=== PATIENT | male | born 1985 | race Caucasian/White ===

== ENCOUNTER → 2017-01-31 | Outpatient (REF) | payer SELFPAY ==
[~2017-01-31] MED LIST: AMOX500C PO; FLUO20CA8 PO; TRAZ100T4 PO; TRAZ50TA4 PO; VIST50CA PO; [UNRECOGNIZED DRUG - CODE] PO
== END ==
LOC: M LAB REF 14:36
PROVIDERS: ATTEND Psychiatry & Neurology Psychiatry
DX: Z79.899 Other long term (current) drug therapy (principal)

== ENCOUNTER → 2017-06-20 | Outpatient (REF) | payer OTHER ==
[~2017-06-20] MED LIST changes: +TRAZ-136 PO; -TRAZ100T4 PO; +TRAZ50TA11 PO; -TRAZ50TA4 PO
== END ==
LOC: M LAB REF 10:38
PROVIDERS: ATTEND Psychiatry & Neurology Psychiatry
DX: Z51.81 Encounter for therapeutic drug level monitoring (principal)

== ENCOUNTER → 2017-09-19 | Outpatient (REF) | payer OTHER | LOC: M LAB REF 10:53 | PROVIDERS: ATTEND Psychiatry & Neurology Psychiatry | DX: Z51.81 Encounter for therapeutic drug level monitoring (principal); Z79.899 Other long term (current) drug therapy ==

== ENCOUNTER 2017-12-07 14:32 | Emergency (ER) | payer OTHER | END 2017-12-07 15:21 | disposition home or self-care (01) | LOC: M ED 14:32 | DX: K02.9 Dental caries, unspecified (principal); R68.84 Jaw pain; R22.0 Localized swelling, mass and lump, head; Z79.899 Other long term (current) drug therapy | CPT/HCPCS: 99283 ==

== ENCOUNTER 2018-01-17 12:17 | Emergency (ER) | payer OTHER | END 2018-01-17 14:20 | disposition home or self-care (01) | LOC: M ED 12:17 | DX: K02.9 Dental caries, unspecified (principal); K04.7 Periapical abscess without sinus; F17.200 Nicotine dependence, unspecified, uncomplicated; Z79.899 Other long term (current) drug therapy | CPT/HCPCS: 99283 ==

== ENCOUNTER 2018-03-11 06:38 | Emergency (ER) | payer OTHER ==
[2018-03-11] MEDS: IBUPROFEN 800 MG TAB PO (07:15)
[2018-03-11] MEDS: AMOXICILLIN 500 MG CAP PO (07:21)
== END 2018-03-11 07:23 | disposition home or self-care (01) ==
LOC: M ED 06:38
DX: K02.9 Dental caries, unspecified (principal); R68.84 Jaw pain; K13.79 Other lesions of oral mucosa; G43.909 Migraine, unspecified, not intractable, without status migrainosus; Z72.0 Tobacco use; Z79.899 Other long term (current) drug therapy
CPT/HCPCS: 99282

== ENCOUNTER 2018-03-21 06:58 | Emergency (ER) | payer OTHER | END 2018-03-21 07:55 | disposition home or self-care (01) | LOC: M ED 06:58 | DX: K02.9 Dental caries, unspecified (principal); S02.5XXA Fracture of tooth (traumatic), initial encounter for closed fracture; X58.XXXA Exposure to other specified factors, initial encounter; Y92.89 Other specified places as the place of occurrence of the external cause; Z79.899 Other long term (current) drug therapy | CPT/HCPCS: 99282 ==

== ENCOUNTER → 2018-08-14 | Outpatient (CLI) | payer OTHER ==
[2018-08-14 15:03] LABS: HEMATOCRIT 43.9 % (42.0-52.0); HEMOGLOBIN 14.7 g/dl (13.5-17.5); MEAN CORPUSCULAR HEMOGLOBIN 30.8 pg (27.0-33.0); MEAN CORPUSCULAR HGB CONC 33.5 g/dl (32.0-36.5); PLATELET COUNT, AUTOMATED 232 10^3/uL (150-450); RED BLOOD COUNT 4.77 10^6/uL (4.30-6.10); RED CELL DISTRIBUTION WIDTH 13.6 % (11.5-14.5); WHITE BLOOD COUNT 13.9 10^3/uL (4.0-10.0)
[2018-08-14 15:27] LABS: ALBUMIN 3.4 GM/DL (3.2-5.2); ALKALINE PHOSPHATASE 113 U/L (45-117); ALT/SGPT 84 U/L (12-78); ANION GAP 9 MEQ/L (8-16); AST/SGOT 46 U/L (7-37); BILIRUBIN,TOTAL 0.5 MG/DL (0.2-1.0); BLOOD UREA NITROGEN 12 MG/DL (7-18); CALCIUM LEVEL 8.9 MG/DL (8.5-10.1); CARBON DIOXIDE LEVEL 28 MEQ/L (21-32); CHLORIDE LEVEL 102 MEQ/L (98-107); CREATININE FOR GFR 0.83 MG/DL (0.70-1.30); GLOMERULAR FILTRATION RATE > 60.0 (>60); GLUCOSE, FASTING 119 MG/DL (70-100); POTASSIUM SERUM 4.3 MEQ/L (3.5-5.1); SODIUM LEVEL 139 MEQ/L (136-145); TOTAL PROTEIN 6.8 GM/DL (6.4-8.2)
[2018-08-14 17:15] LABS: CHLAMYDIA DNA AMPLIFICATION NEGATIVE (NEGATIVE); GC DNA AMPLIFICATION NEGATIVE (NEGATIVE)
[2018-08-15 10:31] LABS: HEPATITIS B SURFACE ANTIGEN NEGATIVE (NEGATIVE)
[2018-08-15 10:59] LABS: HIV 1&2 SCREEN CENTAUR NEGATIVE (NEGATIVE)
[2018-08-15 11:03] LABS: HEPATITIS C VIRUS ABY INDEX > 11.0 INDEX (<0.8)
[2018-08-20 14:16] LABS: HCV RNA NAA QUALITATIVE Positive (Negative)
== END ==
LOC: M LAB 14:24
DX: F11.20 Opioid dependence, uncomplicated (principal)
CPT/HCPCS: 93005

== ENCOUNTER 2019-03-28 08:50 | Emergency (ER) | payer OTHER ==
[~2019-03-28] VITALS: Ht 175.3 cm; Wt 84.0 kg
[~2019-03-28 08:50] MED LIST changes: +ALEV220C2 PO; +ALPR1TAB3; +AUGM875T28 PO; +CLEO300C2 PO; +DEPA500T2 PO; +DIVA500T94; +HYDR-3715 PO; +IBUP-1022 PO; +IBUP80TA PO; +METH-1022; +PENI500T PO; -TRAZ-136 PO; +TRAZ-163 PO; +TRAZ-252 PO; -TRAZ50TA11 PO; +ULTR50TA8 PO
[2019-03-28] MEDS ORDERED: KETOROLAC 60 MG/2 ML VIAL (J1885) IM ONE (09:15)
--- NOTE | 2019-03-28 09:59 | REP ---
Clinical: Right lateral foot pain Technique: AP, lateral, bilateral oblique views right foot . Findings: The osseous structures and joint spaces are intact and normal. There is no evidence for acute fracture or dislocation. Surrounding soft tissues are unremarkable. No subcutaneous emphysema or radiodense foreign body. Impression: Normal right foot series . No acute fracture or dislocation. Electronically Signed by Prince Do MD 03/28/2019 09:50 A
[2019-03-28] MEDS ORDERED: KETO10TAB PO (10:25)
[2019-03-28 10:34] VITALS: BP 129/70
== END 2019-03-28 10:35 | disposition home or self-care (01) ==
LOC: M ED 08:50
DX: S96.911A Strain of unspecified muscle and tendon at ankle and foot level, right foot, initial encounter (principal); X58.XXXA Exposure to other specified factors, initial encounter; Y92.89 Other specified places as the place of occurrence of the external cause; E78.5 Hyperlipidemia, unspecified; G43.909 Migraine, unspecified, not intractable, without status migrainosus; F43.10 Post-traumatic stress disorder, unspecified; F17.210 Nicotine dependence, cigarettes, uncomplicated
CPT/HCPCS: 73630; 96372; 99284; J1885

== ENCOUNTER 2019-06-03 21:31 | Inpatient (IN) | payer OTHER ==
[~2019-06-03] VITALS: Ht 172.7 cm; Wt 84.3 kg
[~2019-06-03 21:31] MED LIST changes: +KETO10TAB PO
[2019-06-03 22:10] LABS: HEMATOCRIT 40.1 % (42.0-52.0); HEMOGLOBIN 13.9 g/dl (13.5-17.5); MEAN CORPUSCULAR HEMOGLOBIN 31.3 pg (27.0-33.0); MEAN CORPUSCULAR HGB CONC 34.7 g/dl (32.0-36.5); MEAN CORPUSCULAR VOLUME 90.3 fl (80.0-96.0); PLATELET COUNT, AUTOMATED 199 10^3/uL (150-450); RED BLOOD COUNT 4.44 10^6/uL (4.30-6.10); WHITE BLOOD COUNT 15.7 10^3/uL (4.0-10.0)
[2019-06-03 23:03] LABS: BASO % 0.2 % (0.0-1.0); EOS # 0.1 10^3/uL (0.0-0.5); EOS % 0.4 % (0.0-3.0); LYMPH # 2.6 10^3/uL (1.5-5.0); LYMPH % 16.6 % (24.0-44.0); MONO % 13.1 % (0.0-5.0); NEUTROPHILS % 69.4 % (36.0-66.0)
[2019-06-03 23:04] LABS: ACETAMINOPHEN LEVEL < 2.0 UG/ML (10.0-30.0); ALBUMIN 3.7 GM/DL (3.2-5.2); ALT/SGPT 94 U/L (12-78); BILIRUBIN,DIRECT 0.4 MG/DL (0.0-0.2); BILIRUBIN,TOTAL 1.1 MG/DL (0.2-1.0); BLOOD UREA NITROGEN 12 MG/DL (7-18); CARBON DIOXIDE LEVEL 28 MEQ/L (21-32); CHLORIDE LEVEL 101 MEQ/L (98-107); ETHYL ALCOHOL (ETHANOL) < 0.003 % (0.000-0.010); GLOMERULAR FILTRATION RATE > 60.0 (>60); GLUCOSE, FASTING 94 MG/DL (70-100); POTASSIUM SERUM 3.7 MEQ/L (3.5-5.1); SALICYLATE LEVEL < 1.7 MG/DL (5.0-30.0); SODIUM LEVEL 137 MEQ/L (136-145); THYROID STIMULATING HORMONE 0.057 uIU/ML (0.358-3.740); TOTAL PROTEIN 6.5 GM/DL (6.4-8.2)
[2019-06-03 23:15] LABS: MONO # 2.1 10^3/uL (0.0-0.8)
[2019-06-03] MEDS ORDERED: NS 1,000 ML IV ONE (23:15)
--- NOTE | 2019-06-03 23:38 | REPVR ---
EXAM: CT Head Without Contrast EXAM DATE/TIME: 06/03/2019 11:07 PM CLINICAL HISTORY: 34 years old, male; Altered mental status/memory loss; Additional info: AMS TECHNIQUE: Imaging protocol: Computed tomography of the head without contrast. Radiation optimization: All CT scans at this facility use at least one of these dose optimization techniques: automated exposure control; mA and/or kV adjustment per patient size (includes targeted exams where dose is matched to clinical indication); or iterative reconstruction. COMPARISON: No relevant prior studies available. FINDINGS: Limitations: Examination is limited by motion artifact. Brain: Complete effacement of sulci along the mid to inferior portions of the brain as well as loss of gibbons-white matter differentiation. This is not seen along the vertex frontal and parietal lobes. No intracranial hemorrhage or extra-axial fluid collection. No midline shift. No ventriculomegaly. Bones/joints: No acute osseus lesion or fracture. Sinuses: Unremarkable as visualized. Mastoid air cells: Unremarkable. Soft tissues: Unremarkable. IMPRESSION: Complete effacement of sulci along mid to inferior portions of the brain as well as loss of gibbons-white matter differentiation. This is not seen along the vertex frontal and parietal lobes. Although findings could be related to marked motion artifact, other pathologies such as anoxic ischemia and cerebral edema cannot be entirely excluded. Recommend neurology consultation and consider further evaluation with repeat head CT and/or MRI brain. Electronically signed by: Bernardo Fried On 06/03/2019 23:37:35 PM
[2019-06-03 23:50] LABS: CPK CREATINE PHOSPHOKINASE 4928 U/L (39-308)
[2019-06-04 00:32] LABS: AMPHETAMINES LEVEL URINE NEGATIVE (NEGATIVE); BARBITURATES URINE NEGATIVE (NEGATIVE); BENZODIAZEPINES URINE NEGATIVE (NEGATIVE); CANNABINOIDS URINE POSITIVE (NEGATIVE); COCAINE METABOLITE URINE POSITIVE (NEGATIVE); METHADONE URINE NEGATIVE (NEGATIVE); OPIATES URINE POSITIVE (NEGATIVE); PHENCYCLIDINE URINE NEGATIVE (NEGATIVE)
--- NOTE | 2019-06-04 01:04 | ECGEPIP ---
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
[2019-06-04] MEDS ORDERED: NS IV ONE (02:45)
[2019-06-04] MEDS ORDERED: DILUENT IV ONE (02:45)
--- NOTE | 2019-06-04 03:14 | REPVR ---
EXAM: CT Head Without Contrast EXAM DATE/TIME: 06/04/2019 2:33 AM CLINICAL HISTORY: 34 years old, male; Altered mental status/memory loss; Additional info: Repeat per rads recommendation TECHNIQUE: Imaging protocol: Computed tomography of the head without contrast. Radiation optimization: All CT scans at this facility use at least one of these dose optimization techniques: automated exposure control; mA and/or kV adjustment per patient size (includes targeted exams where dose is matched to clinical indication); or iterative reconstruction. COMPARISON: CT Head without contrast 06/03/2019 11:12 PM FINDINGS: Brain: There is no evidence for an acute large vessel territorial infarct, intracranial hemorrhage, mass, mass effect, or herniation. The cortical gyration pattern, basal ganglia, thalami, and cerebellum are normal in appearance. The sulcal effacement and loss of the gibbons-white matter differentiation described in the prior CT head on 06/03/2019 are not appreciated in the current examination and were likely secondary to motion artifact. Brainstem: Unremarkable. Midline shift: There is no midline shift. Ventricles: Normal. No ventriculomegaly. Bones/joints: Unremarkable. No acute fracture. Sinuses: Visualized sinuses are unremarkable. No fluid levels. Mastoid air cells: Visualized mastoid air cells are well aerated. Soft tissues: Unremarkable. IMPRESSION: No acute intracranial abnormality. The sulcal effacement and loss of the gibbons-white matter differentiation described in the prior CT head on 06/03/2019 are not appreciated in the current examination and were likely secondary to motion artifact in the prior study. Electronically signed by: Maxwell Koo On 06/04/2019 03:14:03 AM
[2019-06-04] MEDS ORDERED: ACETAMINOPHEN TAB 650MG DOSE (2X325MG) PO PRN (05:00)
[2019-06-04] MEDS ORDERED: MAALOX 30 ML SUSP *UDC PO PRN (05:00)
[2019-06-04] MEDS ORDERED: MOM 30ML SUSPENSION UDC PO PRN (05:00)
[2019-06-04] MEDS ORDERED: NS 1,000 ML IV SCH (05:00)
[2019-06-04] MEDS: HEPARIN SOD (PORCINE) 5000 UNITS/ML VIAL SC SCH ×3 (06:00→20:18)
--- NOTE | 2019-06-04 06:35 | HPEPDOC ---
General Date of Admission 06/04/19 Date of Service: Jun 04, 2019 Attending Physician: TRACE AMBROSE MD Chief Complaint The patient is a 34-year-old male admitted with a reason for visit of [facility]. Source: RN/, RN notes reviewed, EMS notes reviewed, Old records Timing/Duration: Unsure Severity: Moderate Associated Symptoms: Headaches, Weakness, Other (intoxicated, drowsy) History of Present Illness 34-year-old male presents with altered mental status, brought in by EMS at the police found him unconscious. Patient has significant medical history of polysubstance abuse and alcohol abuse. Labs collected in the ED with toxicology screen. Patient tested positive for cocaine, cannabinoids, opiates and CK 5000. He'll be admitted to Med-Surg unit under hospitalist services. Home Medications No Active Prescriptions or Reported Meds Allergies Coded Allergies: No Known Allergies (Unverified , 05/14/15) Past Medical History Medical History Polysubstance abuse, alcohol abuse, dental caries Family History Significant Family History: Noncontributory Social History * Smoker: greater than 1 pack/day, cigarettes Alcohol: heavy Recent Travel/Sick Contacts: Denies: Recent travel, Recent sick contacts A-FIB/CHADSVASC A-FIB History Current/History of A-Fib/PAF?: No Review of Systems Constitutional: Reports: Fatigue Eyes: Denies: Pain, Vision change, Conjunctivae inflammation, Eyelid inflam mation, Redness, Other ENT: Reports: Head Aches Skin: Denies: Rash, Lesions, Jaundice, Bruising, Itching, Dry, Breakdown, Nail Changes, Other Pulmonary: Denies: Dyspnea, Cough, Pleuritic Chest Pain, Other Symptoms Cardiovascular: Reports: Lt Headedness Gastrointestinal: Denies: Nausea, Vomiting, Abdominal Pain, Diarrhea, Constipation, Melena, Hematochezia, Other Symptoms Genitourinary: Denies: Dysuria, Frequency, Incontinence, Hematuria, Retention, Other Symptoms Hematologic: Denies: Bruising, Bleeding Excessively, Petecchia, Purpura, Enlar ged Lymph Nodes, Other Hematologic Endocrine: Denies: Polydipsia, Polyphagia, Polyuria, Heat Intolerance, Cold Intolerance, Other Endocrine Sx Musculoskeletal: Denies: Neck Pain, Back Pain, Shoulder Pain, Arm Pain, Hand Pain, Leg Pain, Foot Pain, Joint Pain, Muscle Pain, Spasms, Other Symptoms Neurological: Reports: Change in speech (slurred) Psych: Reports: Other Psych (drowsy) Physical Examination General Exam: Positive: No Acute Distress, Other (drowsy) Eye Exam: Positive: Conjunctiva & lids normal, Other Eye Symptoms (dilated pupils, bilateral) ENT Exam: Positive: Atraumatic, Nares Patent, Other ENT (rotten teeth, approxi mately 3 Teeth in mouth) Neck Exam: Positive: Supple Chest Exam: Positive: Clear to auscultation, Normal air movement Skin Exam: Positive: Nl turgor and temperature Psych Exam: Positive: Other (intoxicated) Vital Signs Vital Signs Date Time Temp Pulse Resp B/P (MAP) Pulse Ox O2 Delivery O2 Flow Rate FiO2 06/04/19 04:45 64 137/70 (92) 06/04/19 03:15 18 06/03/19 23:45 96 Room Air 06/03/19 21:32 97.6 Laboratory Data Labs 24H Laboratory Tests 2 06/03/19 21:35: Immature Granulocyte % (Auto) 0.3, White Blood Count 15.7H, Red Blood Count 4.44, Hemoglobin 13.9, Hematocrit 40.1L, Mean Corpuscular Volume 90.3, Mean Corpuscular Hemoglobin 31.3, Mean Corpuscular Hemoglobin Concent 34.7, Red Cell Distribution Width 12.6, Platelet Count 199, Neutrophils (%) (Auto) 69.4H, Lymphocytes (%) (Auto) 16.6L, Monocytes (%) (Auto) 13.1H, Eosinophils (%) (Auto) 0.4, Basophils (%) (Auto) 0.2, Neutrophils # (Auto) 11.0H, Lymphocytes # (Auto) 2.6, Monocytes # (Auto) 2.1H, Eosinophils # (Auto) 0.1, Basophils # (Auto) 0.0, Nucleated Red Blood Cells % (auto) 0.0 06/03/19 22:20: Anion Gap 8, Glomerular Filtration Rate > 60.0, Calcium Level 9.0, Aspartate Amino Transf (AST/SGOT) 143H, Alanine Aminotransferase (ALT/SGPT) 94H, Alkaline Phosphatase 78, Total Bilirubin 1.1H, Direct Bilirubin 0.4H, Total Creatine Kinase 4928H, Total Protein 6.5, Albumin 3.7, Albumin/Globulin Ratio 1.32, Thyroid Stimulating Hormone (TSH) 0.057L, Salicylates Level < 1.7L, Acetaminophen Level < 2.0L, Ethyl Alcohol Level < 0.003 06/03/19 23:49: Urine Amphetamines Screen NEGATIVE, Urine Benzodiazepines Screen NEGATIVE, Urine Opiates Screen POSITIVEH, Urine Methadone Screen NEGATIVE, Urine Barbiturates Screen NEGATIVE, Urine Phencyclidine Screen NEGATIVE, Urine Cocaine Metabolite Screen POSITIVEH, Urine Cannabinoids Screen POSITIVEH CBC/BMP Laboratory Tests 06/03/19 21:35 Red Blood Count 4.44, Mean Corpuscular Volume 90.3, Mean Corpuscular Hemoglobin 31.3, Mean Corpuscular Hemoglobin Concent 34.7, Red Cell Distribution Width 12.6, Neutrophils (%) (Auto) 69.4 H, Lymphocytes (%) (Auto) 16.6 L, Monocytes (%) (Auto) 13.1 H, Eosinophils (%) (Auto) 0.4, Basophils (%) (Auto) 0.2, Neutrophils # (Auto) 11.0 H, Lymphocytes # (Auto) 2.6, Monocytes # (Auto) 2.1 H, Eosinophils # (Auto) 0.1, Basophils # (Auto) 0.0 06/03/19 22:20 Assessment/Plan 34-year-old male presents with altered mental status, brought in by EMS at the police found him unconscious. Patient has significant medical history of polysubstance abuse and alcohol abuse. Labs collected in the ED with toxicology screen. Patient tested positive for cocaine, cannabinoids, opiates and CK 5000. He'll be admitted to Med-Surg unit under hospitalist services. Altered mental statusacute -Admit to Med-Surg unit inpatient -Neuro check every 2 hours -Monitor I&O's, weight daily. -TSH, T4, free, UA reflex to culture .Pulse ox remote monitoring and telemetry. Regular diet once patient is fully awake to reduce aspiration and choking . Nothing by mouth until then Rhabdomyolysisacute. IV fluids, saline 125 mL an hour. Monitor CK labs, CBC, CMP, lactic acid, magnesium -Bed rest Polysubstance abusechronic. member services coordinator referral. Patient may need placement for rehabilitation. Withdrawal protocol for opiates . Patient will benefit from starting Suboxone chemical dependency referral is needed Prognosis: Fair. DVT prophylaxis: Pharmaceutical and SCDs lateral lower extremities & ALDAIR's (patient choice alternate( Discharge: Pending Problems (1) Altered mental status Status: Acute Response to Treatment: Improving Problem Specific Plan: Monitor Clinically, Repeat Labs Plan / VTE VTE Prophylaxis Ordered?: Yes VTE Exclusion Mechanical Proph: Venkat Lower Ex DVT Plan IVF: Initiate Diet: Advance Activity: Bedrest Medications: Replete Electrolytes IV, Bowel Regimen Diagnostics: Check Labs, Repeat Labs in AM OSMAR BROWN Jun 04, 2019 05:05
[2019-06-04 06:45] VITALS: BP 140/75
[2019-06-04 08:33] LABS: FREE T4 1.74 NG/DL (0.76-1.46)
[2019-06-04] MEDS: DOCUSATE SODIUM 100 MG CAP PO SCH ×2 (09:07→20:18)
[2019-06-04 09:17] LABS: FOLATE 17.5 NG/ML (>5.4)
[2019-06-04 15:50] VITALS: BP 145/68
[2019-06-04 22:00] VITALS: BP 137/68
[2019-06-05] MEDS: HEPARIN SOD (PORCINE) 5000 UNITS/ML VIAL SC SCH (05:32)
[2019-06-05 06:00] VITALS: BP 154/83
[2019-06-05 06:54] LABS: HEMATOCRIT 36.1 % (42.0-52.0); HEMOGLOBIN 12.3 g/dl (13.5-17.5); MEAN CORPUSCULAR HEMOGLOBIN 30.4 pg (27.0-33.0); MEAN CORPUSCULAR HGB CONC 34.1 g/dl (32.0-36.5); MEAN CORPUSCULAR VOLUME 89.1 fl (80.0-96.0); PLATELET COUNT, AUTOMATED 164 10^3/uL (150-450); RED BLOOD COUNT 4.05 10^6/uL (4.30-6.10); WHITE BLOOD COUNT 6.5 10^3/uL (4.0-10.0)
[2019-06-05 07:20] LABS: ALBUMIN 2.9 GM/DL (3.2-5.2); ALT/SGPT 76 U/L (12-78); BILIRUBIN,TOTAL 0.4 MG/DL (0.2-1.0); BLOOD UREA NITROGEN 6 MG/DL (7-18); CALCIUM LEVEL 8.4 MG/DL (8.5-10.1); CARBON DIOXIDE LEVEL 26 MEQ/L (21-32); CHLORIDE LEVEL 108 MEQ/L (98-107); CREATININE FOR GFR 0.64 MG/DL (0.70-1.30); GLOMERULAR FILTRATION RATE > 60.0 (>60); GLUCOSE, FASTING 116 MG/DL (70-100); MAGNESIUM LEVEL 2.1 MG/DL (1.8-2.4); POTASSIUM SERUM 3.4 MEQ/L (3.5-5.1); SODIUM LEVEL 139 MEQ/L (136-145); TOTAL PROTEIN 6.1 GM/DL (6.4-8.2)
[2019-06-05] MEDS ORDERED: POTASSIUM CHLORIDE 10 MEQ SR TABLET PO ONE (07:45)
--- NOTE | 2019-06-05 13:51 | DS.PDOC ---
Discharge Summary General Date of Admission Jun 04, 2019 at 04:51 Date of Discharge 06/05/19 - left without notice Discharge Summary PROCEDURES PERFORMED DURING STAY: [None]. ADMITTING DIAGNOSES: 1. Rhabdomyolysis 2. Polysubstance abuse COMPLICATIONS/CHIEF COMPLAINT: Altered Mental Status, Rhabdomyolysis. HISTORY OF PRESENT ILLNESS: 34-year-old male presented with altered mental status, brought in by EMS as the police found him unconscious. Patient has significant medical history of polysubstance abuse and alcohol abuse. Labs collected in the ED with toxicology screen, and patient tested positive for cocaine, cannabinoids, opiates and CK 5000. Admitted to IVDA including heroin. On hospital day two, he had left the hospital, with his saline lock/IV in his arm. Code ANGELITA was called. Patient was not found. Police were notified to complete a medical welfare check. DISCHARGE MEDICATIONS: Please see below. ALLERGIES: Please see below. PHYSICAL EXAMINATION ON DISCHARGE: Patient left without notice. LABORATORY DATA: Please see below. PROGNOSIS: Guarded ACTIVITY: [As tolerated]. DISPOSITION: 07 Against Medical Advice. TIME SPENT ON DISCHARGE: 32 minutes. Vital Signs/I&Os Vital Signs Date Time Temp Pulse Resp B/P (MAP) Pulse Ox O2 Delivery O2 Flow Rate FiO2 06/05/19 06:00 98.1 50 17 154/83 (106) 98 06/04/19 06:30 Room Air I&O- Last 24 Hours up to 6 AM 06/05/19 06:00 Intake Total 2700 ml Balance 2700 ml Laboratory Data Labs 24H Laboratory Tests 2 06/04/19 21:20: Urine Color YELLOW, Urine Appearance CLEAR, Urine pH 6.0, Urine Specific [place] 1.019, Urine Protein NEGATIVE, Urine Glucose (UA) NEGATIVE, Urine Ketones TRACEH, Urine Blood NEGATIVE, Urine Nitrite NEGATIVE, Urine Bilirubin NEGATIVE, Urine Urobilinogen 4.0H, Urine Leukocyte Esterase NEGATIVE, Urine WBC (Auto) 4H, Urine RBC (Auto) 3, Urine Hyaline Casts (Auto) 0, Urine Bacteria (Auto) NEGATIVE, Urine Squamous Epithelial Cells 0, Urine Mucus (Auto) SMALL, Urine Sperm (Auto) 06/05/19 06:37: Nucleated Red Blood Cells % (auto) 0.0, Anion Gap 5L, Glomerular Filtration Rate > 60.0, Lactic Acid Level 0.9, Blood Urea Nitrogen 6L, Creatinine 0.64L, Sodium Level 139, Potassium Level 3.4L, Chloride Level 108H, Carbon Dioxide Level 26, Calcium Level 8.4L, Aspartate Amino Transf (AST/SGOT) 63H, Alanine Aminotransferase (ALT/SGPT) 76, Alkaline Phosphatase 69, Total Bilirubin 0.4#, Total Protein 6.1L, Albumin 2.9#L, Magnesium Level 2.1, Albumin/Globulin Ratio 0.91L CBC/BMP Laboratory Tests 06/05/19 06:37 Red Blood Count 4.05 L, Mean Corpuscular Volume 89.1, Mean Corpuscular Hemoglobin 30.4, Mean Corpuscular Hemoglobin Concent 34.1, Red Cell Distribution Width 13.2, Calcium Level 8.4 L, Aspartate Amino Transf (AST/SGOT) 63 H, Alanine Aminotransferase (ALT/SGPT) 76, Alkaline Phosphatase 69, Total Bilirubin 0.4 #, Total Protein 6.1 L, Albumin 2.9 #L Discharge Medications No Active Prescriptions or Reported Meds Allergies Coded Allergies: No Known Allergies (Unverified , 05/14/15) SHONA GREENE MD Jun 05, 2019 13:51
== END 2019-06-05 09:20 | disposition left against medical advice (07) | DRG 351 ==
LOC: M ED 21:31 → M ED INP 06-04 04:51 → M MS5PR 06-04 06:45
PROVIDERS: ADMIT Internal Medicine Nephrology; ATTEND Internal Medicine
DX: M62.82 Rhabdomyolysis (principal); F10.10 Alcohol abuse, uncomplicated; F12.90 Cannabis use, unspecified, uncomplicated; F11.90 Opioid use, unspecified, uncomplicated; F14.90 Cocaine use, unspecified, uncomplicated

== ENCOUNTER 2019-11-30 17:06 | Inpatient (IN) | payer MEDICAID, OTHER ==
[2019-11-30] VITALS (8 sets, daily range): BP systolic 126–158; BP diastolic 60–82
[~2019-11-30] VITALS: Ht 188 cm; Wt 103.7 kg
[~2019-11-30 17:06] MED LIST changes: +FLUO20CA20 PO; -FLUO20CA8 PO; -TRAZ-163 PO; +TRAZ-257 PO
[2019-11-30] MEDS ORDERED: NS 1,000 ML IV SCH ×2 (17:12→23:00)
[2019-11-30] MEDS ORDERED: DIVA500T94 PO (17:15)
[2019-11-30] MEDS ORDERED: TRAZ-257 PO (17:15)
[2019-11-30] MEDS ORDERED: LORazepam 2 MG/ML VIAL (J2060) IV STA (17:32)
[2019-11-30 17:35] LABS: HEMATOCRIT 39.5 % (42.0-52.0); HEMOGLOBIN 13.5 g/dl (13.5-17.5); MEAN CORPUSCULAR HEMOGLOBIN 31.5 pg (27.0-33.0); MEAN CORPUSCULAR HGB CONC 34.2 g/dl (32.0-36.5); MEAN CORPUSCULAR VOLUME 92.3 fl (80.0-96.0); PLATELET COUNT, AUTOMATED 133 10^3/uL (150-450); RED BLOOD COUNT 4.28 10^6/uL (4.30-6.10); WHITE BLOOD COUNT 13.2 10^3/uL (4.0-10.0)
[2019-11-30] MEDS ORDERED: NS 1,000 ML IV ONE ×2 (17:45→19:15)
[2019-11-30 17:59] LABS: ANISOCYTOSIS 1+; ATYPICAL LYMPH 7 % (0-5); LYMPHOCYTES 6 % (16-44); MONOCYTES 12 % (0-5); NEUTROPHILS 63 % (28-66)
[2019-11-30 18:00] LABS: PLATELET ESTIMATE NORMAL (NORMAL)
--- NOTE | 2019-11-30 18:05 | ECGEPIP ---
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
[2019-11-30] MEDS ORDERED: NALOXONE INJ 0.4 MG/1 ML VIAL (J2310) As Ordered ONE (18:07)
[2019-11-30 18:13] LABS: AMPHETAMINES LEVEL URINE NEGATIVE (NEGATIVE); BARBITURATES URINE NEGATIVE (NEGATIVE); BENZODIAZEPINES URINE NEGATIVE (NEGATIVE); CANNABINOIDS URINE POSITIVE (NEGATIVE); COCAINE METABOLITE URINE NEGATIVE (NEGATIVE); METHADONE URINE NEGATIVE (NEGATIVE); OPIATES URINE POSITIVE (NEGATIVE); PHENCYCLIDINE URINE NEGATIVE (NEGATIVE)
[2019-11-30] MEDS ORDERED: NALOXONE INJ 0.4 MG/1 ML VIAL (J2310) IV STA ×2 (18:15→19:05)
[2019-11-30 18:50] LABS: ACETAMINOPHEN LEVEL < 2.0 UG/ML (10.0-30.0); ALBUMIN 3.6 GM/DL (3.2-5.2); ALT/SGPT 375 U/L (12-78); BILIRUBIN,DIRECT 0.4 MG/DL (0.0-0.2); BILIRUBIN,TOTAL 1.1 MG/DL (0.2-1.0); BLOOD UREA NITROGEN 35 MG/DL (7-18); CALCIUM LEVEL 8.1 MG/DL (8.5-10.1); CARBON DIOXIDE LEVEL 21 MEQ/L (21-32); CHLORIDE LEVEL 102 MEQ/L (98-107); CPK CREATINE PHOSPHOKINASE 70550 U/L (39-308); CREATININE FOR GFR 1.71 MG/DL (0.70-1.30); ETHYL ALCOHOL (ETHANOL) < 0.003 % (0.000-0.010); GLUCOSE, FASTING 60 MG/DL (70-100); POTASSIUM SERUM 4.2 MEQ/L (3.5-5.1); SALICYLATE LEVEL 3.2 MG/DL (5.0-30.0); SODIUM LEVEL 136 MEQ/L (136-145); THYROID STIMULATING HORMONE 0.499 uIU/ML (0.358-3.740); TOTAL PROTEIN 6.6 GM/DL (6.4-8.2); VALPROIC ACID (DEPAKOTE) 47.3 UG/ML (50.0-100.0)
[2019-11-30] MEDS ORDERED: NALOXONE INJ 2 MG/2 ML SYRINGE (J2310) IV STA (19:16)
[2019-11-30] MEDS ORDERED: NALOXONE HCL INJ 4 MG in D5W 496 ML IV SCH (19:30)
[2019-11-30] MEDS ORDERED: PIPERACILLIN/TAZOBACTAM SOD 4.5 GM in D5W MINI-BAG PLUS 50 ML IV ONE (20:30)
[2019-11-30] MEDS ORDERED: VANCOMYCIN HCL 2,000 MG in D5W 500 ML IV ONE (20:30)
[2019-11-30] MEDS ORDERED: methylPREDNISolone INJ 125 MG/2 ML VIAL (J2930) IV ONE (20:45)
[2019-11-30] MEDS ORDERED: DEXTROSE 50% 50 ML SYRINGE IV STA (20:46)
--- NOTE | 2019-11-30 20:55 | REPVR ---
PROCEDURE INFORMATION: Exam: CT Chest Without Contrast Exam date and time: 11/30/2019 8:08 PM Age: 34 years old Clinical indication: Shortness of breath; Additional info: AMS; SOB TECHNIQUE: Imaging protocol: Computed tomography of the chest without contrast. 3D rendering: MIP and/or 3D reconstructed images were created by the technologist. Radiation optimization: All CT scans at this facility use at least one of these dose optimization techniques: automated exposure control; mA and/or kV adjustment per patient size (includes targeted exams where dose is matched to clinical indication); or iterative reconstruction. COMPARISON: CR Chest, 1 view 11/30/2019 7:36 PM FINDINGS: Lungs: There are multifocal ground-glass airspace opacities throughout both lungs with a bilateral upper lobe predominance. Airways are clear. No masses are seen. No appreciable interstitial thickening or other interstitial lung disease. Pleural space: No pleural effusion or pneumothorax. Heart: Unremarkable. No cardiomegaly. No pericardial effusion. Aorta: Unremarkable. No aortic aneurysm. Lymph nodes: Unremarkable. No enlarged lymph nodes. Bones/joints: Unremarkable. No acute fracture. Soft tissues: Unremarkable. IMPRESSION: Diffuse ground-glass opacities in both lungs concerning for multifocal pneumonia including atypical etiologies. Electronically signed by: Jose Juan Brenner On 11/30/2019 20:55:00 PM
[2019-11-30] MEDS ORDERED: SODIUM CHLORIDE 0.9% 1000ML IV SCH (21:15)
--- NOTE | 2019-11-30 21:16 | HPEPDOC ---
[facility] Medical History & Physical Date of Admission Nov 30, 2019 Date of Service: Nov 30, 2019 Attending Physician: CLARIBEL DOWELL MD History and Physical TIME OF SERVICE: 9:23 PM CHIEF COMPLAINT: Drug overdose HISTORY OF PRESENT ILLNESS: The patient is a poor historian the majority of the history was obtained from the ER and provider. His is a 34-year-old male who took marijuana that may have been laced with other substances. When EMS and police found him standing in the snow without shoes, wa s slurring his words and saying things that didn't make sense. Shortly after arrival in the ER, he was started on a Narcan drip. During my evaluation, the patient had was slightly sedated but arousable and unable to stay still for long periods of time. He had been placed on Ventimask because his O2 sats dropped. The patient admitted to taking marijuana and thinks it may have been laced with additional substances. He admits to snorting cocaine in the past. REVIEW OF SYSTEMS: unobtainable PAST MEDICAL/ SURGICAL HISTORY: History of depression with suicidal ideation. PTSD Bipolar disorder Chronic back pain . Status post tonsillectomy with adenoidectomy. 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 THC. Cocaine Heroin FAMILY HISTORY: Unobtainable ALLERGIES: Please see below. HOME MEDICATIONS: Please see below. PHYSICAL EXAMINATION: Vital Signs Date Time Temp Pulse Resp B/P (MAP) Pulse Ox O2 Delivery O2 Flow Rate FiO2 11/30/19 17:10 120 22 141/76 85 Room Air 11/30/19 17:24 100.0 11/30/19 17:43 5.0 11/30/19 21:30 50 GEN: well-nourished / well developed/ agitated INTEGUMENT: flushed/ not jaundice HEENT: Ventimask in place / lips acyanotic /mucus membranes moist and pink / . Pupils sluggish but reactive to light CVS: Tachycardic LUNGS: Tachypneic/he has expiratory wheezes bilaterally ABDOMEN: Contour (flat) / soft, he is not grimacing with palpation of the abdomen MSK/EXTREMITIES: range of motion intact in all 4 extremities PSYCH: Lethargic/appears to have akathisia? LABORATORY DATA: CPK greater than 70,000 IMAGING: Chest x-ray shows bilateral hazy infiltrates, but the final read is pending. CT chest " IMPRESSION: Diffuse ground-glass opacities in both lungs concerning for multifocal pneumonia including atypical etiologies." MICROBIOLOGY: Please see below. ASSESSMENT: Mr. Holloway is a 34-year-old with a history of PTSD, depression, bipolar disorder and polysubstance abuse who is admitted for management of altered mental status, acute respiratory failure, rhabdomyolysis, & CURTIS in the setting of ingesting THC may have been laced with other substances. PLAN: 1. Altered mental status Likely due to polysubstance abuse Plan: Admit to ICU for closer monitoring / neurochecks / consult Dr. Barrera for assistance with managing Narcan drip / follow-up ammonia 2. Acute hypoxemic respiratory failure Possibly due to multifocal pneumonia vs crack lung vs other cause to be determined His O2 sats were as low as 85% Plan: Continue supplemental oxygen via Ventimask/continuous pulse ox / f/u sputum & blood cx / abx / IVF / Tessalon pearls / Acetaminophen PRN for fever 3. Sepsis Possibly 2/2 PNA vs other URI SIRS criteria include HR >90 / WBC >12 / RR> 20 Lactic acid was within normal limits He has received IV fluids, zosyn and vanc Plan: telemetry /c/w ceftriaxone, azithromycin & vancomycin /f/u blood cx, sputum Cx, MRSA, Legionella, strep pneumonia, respiratory panel / target MAP 65 to 70 / f/u Is and Os with target UOP of abreast 0.5 ml/kg/H / target serum glucose 140-180 while acutely ill 4. Hypoglycemia Plan: D5NS/ / f/u accuchecks 5. Rhabdomyolysis. Likely due to drug abuse. Plan: IV fluids/trend CPK 6. CURTIS Likely due to rhabdomyolysis Plan: Is/Os, daily weights / IVF / f/u ulytes for FENa , urine protein creatinine ratio/ renal US 7. Transaminitis Likely due to drug abuse. Plan: Trend LFTs/ follow-up liver ultrasound, coags, and hepatitis panel / if his LFTs continue to trend up we will place a GI consult 8. Thrombocytopenia. Likely due to reduced combo potent production due to liver clear. Plan: Follow-up CBC / Monitor for bleeding 9. Polysubstance abuse. Drug screen reviewed Plan: Fall precautions/seizure precautions 10. Obesity w BMI 32.3 Complicates Care Plan: f/u A1C DVT PROPHYLAXIS: Heparin DISPOSITION: likely home after more than 2 midnight's stay Home Medications Miscellaneous Medications [Patient Comments] UNABLE TO DISCUSS MEDICATION HISTORY WITH PATIENT AT THIS TIME Allergies Coded Allergies: No Known Allergies (Unverified , 05/14/15) A-FIB/CHADSVASC A-FIB History Current/History of A-Fib/PAF?: No Current PO Anticoag Therapy: No CLARIBEL DOWELL MD Nov 30, 2019 21:16
[2019-11-30] MEDS ORDERED: PATIENT COMMENTS (21:34)
[2019-11-30] MEDS ORDERED: dexmedeTOMidine 200 MCG in IV 1 EA IV SCH (22:00)
[2019-11-30] MEDS ORDERED: IPRATROPIUM 0.5MG/ALBUTEROL 2.5MG INH SOL UD 3ML (DUONEB)(J7620) NEB PRN (22:15)
[2019-11-30 22:21] LABS: INR 1.2; PROTHROMBIN TIME 14.9 SECONDS (11.8-14.0)
--- NOTE | 2019-11-30 22:21 | REPVR ---
PROCEDURE INFORMATION: Exam: US Abdomen Complete Exam date and time: 11/30/2019 10:00 PM Age: 34 years old Clinical indication: Abnormal findings; Abnormal lab test; Abnormal kidney function lab tests and elevated liver enzymes; Additional info: James TECHNIQUE: Imaging protocol: Real-time ultrasound of the abdomen with image documentation. COMPARISON: No relevant prior studies available. FINDINGS: Liver: Normal. No mass. Gallbladder: Normal. No gallstones. There is no gallbladder wall thickening. Common bile duct: Normal. No stones. No dilation. Pancreas: Visualized pancreas is unremarkable. Right kidney: Normal. No mass. No hydronephrosis. Left kidney: Normal. No mass. No hydronephrosis. Spleen: Normal. No splenomegaly. Aorta: Normal. No aneurysm. Inferior vena cava: Normal. IMPRESSION: No acute findings. Electronically signed by: Jose Juan Brenner On 11/30/2019 22:21:14 PM
[2019-11-30] MEDS ORDERED: MIDAZOLAM INJ 2 MG/2 ML VIAL (J2250) IV STA (22:45)
[2019-11-30] MEDS ORDERED: ETOMIDATE INJ 20MG/10ML VIAL IV ONE (22:45)
[2019-11-30] MEDS ORDERED: SUCCINYLCHOLINE INJ 200 MG/10 ML VIAL (J0330) IV ONE (22:45)
[2019-11-30] MEDS ORDERED: propofoL 200 MG/20 ML VIAL IV ONE (22:45)
[2019-11-30] MEDS ORDERED: ETOMIDATE INJ 20MG/10ML VIAL As Ordered ONE ×2 (22:58→23:08)
[2019-11-30] MEDS ORDERED: PROPOFOL 1,000 MG/100 ML VIAL As Ordered ONE (23:00)
[2019-11-30] MEDS ORDERED: SUCCINYLCHOLINE INJ 200 MG/10 ML VIAL (J0330) As Ordered ONE (23:08)
[2019-11-30] MEDS ORDERED: MIDAZOLAM INJ 2 MG/2 ML VIAL (J2250) As Ordered ONE (23:19)
[2019-12-01] VITALS (40 sets, daily range): BP systolic 88–129; BP diastolic 49–72; O2SAT 97
[2019-12-01] MEDS: propofoL 1,000 MG in IV 1 EA IV SCH ×8 (00:18→18:48)
[2019-12-01] MEDS ORDERED: LORazepam 2 MG/ML VIAL (J2060) IV STA (00:19)
[2019-12-01] MEDS: HEPARIN SOD (PORCINE) 5000 UNITS/ML VIAL (J1644 PER 1000UNITS) SC SCH ×4 (00:48→23:54)
[2019-12-01] MEDS: fentaNYL CITRATE 1,000 MCG in NS 80 ML IV SCH ×2 (00:49→13:40)
[2019-12-01 00:53] LABS: ABG BASE EXCESS -7.5 (-2.0-2.0); ABG HCO3 19.3 MEQ/L (22.0-26.0); ABG O2 SATURATION 98.6 % (95.0-99.0); ABG PARTIAL PRESSURE O2 133.7 mmHg (75.0-100.0); ABG STANDARD HCO3 18.4 MEQ/L (22.0-26.0); ABG TOTAL CO2 20.7 MEQ/L (22.0-29.0)
[2019-12-01] MEDS ORDERED: D5W/0.9% SODIUM CHLORIDE 1,000 ML IV SCH (02:30)
--- NOTE | 2019-12-01 02:58 | PHACANCOPD ---
PHARMACY VANCOMYCIN DOSING Pt Demographics Demographics Patient Age:34 , Weight:114.000 , Gender: male Adjusted Body Weight Date: 12/01/19, Adjusted Body Weight: Kg Events Past 24 Hours Events Past 24 Hours: NO: Dialysis, Diuretic Therapy, Change in CrCl, Fever, Elevation in WBC, Pending Diagnostics, Pending Procedures, Other Vancomycin Vancomycin Target Ranges: 15-20 mcg/ml Vancomycin Load Y/N: Yes Load Dose Date Time Vancomycin Load Dose: 2000MG Date: Time: 1999 Vancomycin Dose Date: 12/01/19. Current Vancomycin Dose: [1250mg q8h] Intermittent Dosing?: No Labs Labs Item Value Date Time White Blood Count 13.2 10^3/uL H 11/30/19 1720 Glomerular Filtration Rate 49.0 L 11/30/19 1720 Creatinine 1.71 MG/DL H 11/30/19 1720 Blood Urea Nitrogen 35 MG/DL H 11/30/19 1720 Vital Signs Label Value Date Time Patient Temperature 99.1 degrees F 12/01/19 0242 Temperature Source Rectal 12/01/19 0242 Micro Microbiology 11/30/19 Respiratory Virus Panel (PCR) (RAYMUNDO) - Final, Complete Coronavirus Nl63 11/30/19 Blood Culture, Received Pending Creatinine Clearance Date:12/01/19. Creatinine Clearance: [~70]. Pending Labs Trough 03-01 @1100 Assessment and Plan Maintaining Current Dose?: Yes Reason for dose change: No Dose Change Pharmacist Note Pharmacist Note Date: 12/01/19. Pharmacist note:Will monitor and make adjustments as needed. [facility] Dec 01, 2019 02:58
[2019-12-01 03:42] LABS: HEMATOCRIT 37.3 % (42.0-52.0); HEMOGLOBIN 12.6 g/dl (13.5-17.5); MEAN CORPUSCULAR HEMOGLOBIN 32.1 pg (27.0-33.0); MEAN CORPUSCULAR HGB CONC 33.8 g/dl (32.0-36.5); MEAN CORPUSCULAR VOLUME 94.9 fl (80.0-96.0); PLATELET COUNT, AUTOMATED 115 10^3/uL (150-450); RED BLOOD COUNT 3.93 10^6/uL (4.30-6.10); WHITE BLOOD COUNT 11.1 10^3/uL (4.0-10.0)
[2019-12-01] MEDS: NS 1,000 ML IV SCH ×6 (03:55→23:42)
[2019-12-01] MEDS: VANCOMYCIN HCL 750 MG, VIAL MATE ADAPTER 1 EACH in D5W 250 ML IV SCH ×2 (03:57→13:34)
[2019-12-01 04:00] LABS: ALBUMIN 3.1 GM/DL (3.2-5.2); ALT/SGPT 298 U/L (12-78); BILIRUBIN,TOTAL 0.7 MG/DL (0.2-1.0); BLOOD UREA NITROGEN 27 MG/DL (7-18); CALCIUM LEVEL 7.8 MG/DL (8.5-10.1); CARBON DIOXIDE LEVEL 24 MEQ/L (21-32); CHLORIDE LEVEL 104 MEQ/L (98-107); GLOMERULAR FILTRATION RATE > 60.0 (>60); GLUCOSE, FASTING 173 MG/DL (70-100); MAGNESIUM LEVEL 1.7 MG/DL (1.8-2.4); POTASSIUM SERUM 4.5 MEQ/L (3.5-5.1); SODIUM LEVEL 136 MEQ/L (136-145); TOTAL PROTEIN 6.2 GM/DL (6.4-8.2)
[2019-12-01] MEDS ORDERED: methylPREDNISolone INJ 125 MG/2 ML VIAL (J2930) IV SCH (04:00)
[2019-12-01 04:12] LABS: APPEARANCE, URINE CLEAR (CLEAR); BACTERIA, URINE AUTO NEGATIVE (NEGATIVE); BILIRUBIN, URINE AUTO NEGATIVE (NEGATIVE); BLOOD, URINE BLOOD 1+ (NEGATIVE); COLOR, URINE YELLOW (YELLOW); GLUCOSE, URINE (UA) AUTO NEGATIVE (NEGATIVE); KETONE, URINE AUTO 1+ mg/dL (NEGATIVE); LEUKOCYTE ESTERASE, URINE AUTO NEGATIVE (NEGATIVE); MUCUS, URINE SMALL (NEGATIVE); NITRITE, URINE AUTO NEGATIVE (NEGATIVE); PROTEIN, URINE AUTO NEGATIVE (NEGATIVE); RBC, URINE AUTO 2 /HPF (0-3); SPECIFIC GRAVITY URINE AUTO 1.017 (1.002-1.035); SQUAMOUS EPITHELIAL CELL UR AU 0 /HPF (0-6); UROBILINOGEN, URINE AUTO 0.2 mg/dL (0.0-2.0); WBC, URINE AUTO 2 /HPF (0-3)
[2019-12-01] MEDS: VANCOMYCIN HCL 500 MG in D5W MINI-BAG PLUS 100 ML IV SCH ×2 (05:35→12:21)
[2019-12-01 05:54] LABS: ABG BASE EXCESS -4.5 (-2.0-2.0); ABG HCO3 23.1 MEQ/L (22.0-26.0); ABG O2 SATURATION 98.8 % (95.0-99.0); ABG PARTIAL PRESSURE CO2 52.8 mmHg (35.0-45.0); ABG PARTIAL PRESSURE O2 136.5 mmHg (75.0-100.0); ABG STANDARD HCO3 20.8 MEQ/L (22.0-26.0); ABG TOTAL CO2 24.7 MEQ/L (22.0-29.0); ABG pH (ARTERIAL) 7.258 UNITS (7.350-7.450)
[2019-12-01] MEDS: PANTOPRAZOLE 40MG INJ (PROTONIX) (C9113) IV SCH (08:38)
[2019-12-01] MEDS: cefTRIAXone SOD 1 GM in D5W MINI-BAG PLUS 50 ML IV SCH (08:38)
[2019-12-01] MEDS: CHLORHEXIDINE GLUCONATE 0.12 % 15ML UDC (PERIDEX ORAL RINSE) MT SCH ×2 (08:38→20:11)
--- NOTE | 2019-12-01 09:07 | CR ---
DATE OF CONSULTATION: 11/30/2019 HISTORY OF PRESENT ILLNESS: History was obtained from the chart and from other collateral information as the patient is altered and unable to provide a clear history. As per the ED, the patient was initially brought in after being found by the police outside sitting in the snow without shoes and without any jacket on. He was noted to be slurring words and appeared confused. In the ED, the patient was agitated and there was a reported history of possible substance abuse with methamphetamines or essie. The patient does have a history of polysubstance abuse in the past including cocaine, IV drugs such as heroin, methamphetamine, ecstasy and marijuana. He was given Ativan initially due to his agitation. The patient was then noted to be less responsive and was desatting on nasal cannula oxygen. He was given 0.4 mg of Narcan, but continued to be bradypneic. He was then given an additional 0.4 mg of Narcan and then 2 mg of Narcan after that with improvement in his respiratory rate. He then became awake and was responsive. He was agitated and restless as well and was now tachypneic. The patient was also given IV fluid bolus in the ED of 3 liters and started on maintenance fluids. He was also given broad-spectrum antibiotics with vancomycin and Zosyn and a dose of Solu-Medrol 125 mg. In the ED the patient is on a VentiMask at 50% FiO2; however, with his agitation and restlessness, he is unable to keep the VentiMask on. On room air he is satting in the 80s. With the VentiMask on his O2 sats improved to 97%. He is tachypneic and somewhat drowsy but also agitated and restless with movements of his limbs and his head side to side. On questioning he denies any pain currently and he denies any shortness of breath or difficulty breathing. He is coughing and has been producing thick, brown sputum. On further questioning, the patient did report snorting cocaine recently. He also reports smoking cigarettes as well as marijuana. PAST MEDICAL/SURGICAL HISTORY: Posttraumatic stress disorder (PTSD). Dental disease. Polysubstance abuse. Adenoidectomy. Tonsillectomy. Myringotomy. 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 He has a history of polysubstance abuse including IV drug use with heroin. He also has a history of alcohol abuse as well as abuse of cocaine, marijuana and methamphetamines. Patient is also a current active smoker of 1.5 packs a day for approx 15 years. Patient reportedly lives in a home with other substance abusers FAMILY HISTORY: No reported family history. HOME MEDICATIONS: None reports. ALLERGIES: No known drug allergies. PHYSICAL EXAMINATION: T-max was 100. T-current 99.6, pulse 106, respirations 20s to 30s, blood pressure is 139/60, O2 sat is 96% on VentiMask at 50% FiO2. Ins 3 liters normal saline bolus, outs none documented. GENERAL: The patient is well nourished, is lying in the bed and appears agitated and restless. He has some redness in his face and in his chest, which was reportedly noticed on his arrival to the ED, possibly secondary to some cold weather exposure history. HEENT: Normocephalic, atraumatic. Pupils are small and reactive to light bilaterally. There is moist mucous membranes noted. No tongue swelling noted. NECK: Supple. Trachea is midline. No palpable cervical adenopathy. CARDIOVASCULAR: Tachycardic, regular rate and rhythm. Normal S1, S2. Unable to appreciate any murmurs. PMI is nondisplaced. RESPIRATORY: There are diffuse wheezes and rhonchi and coarse breath sounds noted bilaterally. ABDOMEN: Soft, appears mildly distended but is nontender to palpation. There is no rebound or guarding. EXTREMITIES: There is no lower extremity edema noted bilaterally. There are a few abrasions noted in the legs. LABORATORIES: WBC 13.2, hemoglobin 13.5, platelets are 133. Chemistry: Sodium is 136, potassium 4.2, chloride is 102, bicarb is 21, BUN is 35, creatinine is 1.71, glucose 60, total bilirubin is 1.1, direct bili 0.4, AST 1344, ALT 375, alk phos is 61. CPK is 70,550, albumin is 3.6. TSH is within normal limits. Lactic acid 1.6. INR is 1.2, PT 14.9. Urine toxicology salicylates and acetaminophen negative. Positive for opioids and cannabis. Initial ABG pH was 7.273, pCO2 of 44 and a pO2 of 219. Repeat ABG pH is 7.301, pCO2 of 35.1 and a pO2 of 62. Microbiology: Respiratory virus panel was positive for coronavirus NL63. IMAGING: CT chest: Lung windows were somewhat limited due to respiratory motion but the patient was noted to have ground-glass and somewhat denser opacities bilaterally in the lungs with some areas of air bronchograms mostly in the upper lobes as well as in the middle lobes and to a lesser degree in the lower lobes bilaterally. There is no significant effusion noted. There is no significant mediastinal adenopathy noted on the noncontrast CT. Abdominal ultrasound: There are no gallstones. No gallbladder wall thickening. Visualized pancreas was unremarkable. IVC appeared normal. No acute findings reported. ASSESSMENT/PLAN: Mr. Holloway is a 34-year-old male with a history of polysubstance abuse who presented to the ED after being found by the police outdoors in the cold weather, inappropriately dressed without footwear. In the ED he was agitated and restless and initially had required Ativan for sedation. He was then noted to have more respiratory depression and hypoxia. He was then given Narcan given his history of opioid abuse and with a urine toxicology positive for opioids. With the Narcan he did have an improvement in his mental status as well as in his respiration rate. Patient was given a total of 2.8 mg of Narcan. He was then started on a Narcan drip, but has continued to be responsive and answering questions appropriately as well as having some increased agitation now. He is tachypneic and is somewhat agitated as well. 1. Acute hypoxemic respiratory failure. CT chest showed bilateral opacities, some ground-glass and other denser consolidations in the upper lobes mostly. The patient did have leukocytosis and had a borderline fever and so infectious etiology is possible such as community acquired pneumonia. He also has a history of cocaine snorting and also other possible inhalation exposures and so acute pulmonary toxicity or crack lung is possible. His urine toxicology was negative however for cocaine. Acute eosinophilic pneumonia secondary to some possible inhalation is also possible as well. Noncardiogenic pulmonary edema is also possible secondary to opioid abuse or even from iatrogenic administration of Narcan although less likely given the appearance on imaging. - Patient was given Solu-Medrol 125 mg in the ED. Will continue with Solu- Medrol 40 mg every 8 hours. - Will also start nebulizer treatments with DuoNebs every 4 hours as he does also have some wheezing noted bilaterally and rhonchi. - Will place the patient on high-flow nasal cannula oxygen supplementation as he is having difficulty maintaining the VentiMask with his agitation. Would continue to titrate for an O2 sat above 90%. His initial ABG showed mostly metabolic acidosis with a slight component of a respiratory acidosis with his respiratory depression initially. Repeat ABG shows improvement in his acidosis. - if patient has worsening respiratory distress or hypoxemia would likely need intubation and mechanical ventilation - Will repeat chest x-ray in a.m and ABG - Will start aspiration precautions with head of bed elevation. - Would continue with antibiotics for community acquired pneumonia with ceftriaxone and azithromycin. Will followup Legionella Mycoplasma and a sputum culture. He did have a positive coronavirus but would treat him for possible superimposed bacterial pneumonia as well. - Continue with respiratory isolation. - Will check a procalcitonin. 2. History of polysubstance abuse with metabolic encephalopathy. Likely secondary to his substance abuse. Urine toxicology was positive for cocaine and cannabis. Given his agitation, suspect he may have had synthetic cannabis as well. Patient also has hx of methamphetamine abuse but was not positive on Utox. - The patient was given Narcan in the ED and did have improvement in his respiratory depression. He is now agitated and tachypneic and so will DC the Narcan drip and continue to give IV pushes of Narcan as needed based on his respiratory rate. - Will start Precedex drip for his agitation. He may need p.r.n. benzodiazepine but would be cautious about the dosage given his respiratory status. - Would place the patient on one-to-one for safety precautions. 3. Acute renal failure with rhabdomyolysis, likely secondary to his intoxication. Patient does have a history of cocaine abuse, which can sometimes precipitate rhabdomyolysis. He was also out in the cold weather without appropriate outerwear and so this may also be a component from exposure. - Will continue with IV fluid hydration with normal saline at 200 mL an hour and would place a [place] to monitor his urine output. - Continue to monitor his renal function and continue to trend his CPK. - Will monitor electrolytes and replete as needed. 4. Abnormal LFTs with transaminitis and bilirubin. Patient has a previous history of alcohol abuse, may be a component of possible alcoholic hepatitis. Some of the elevated transaminitis is also secondary to his elevated CPK. - Patient had an abdominal ultrasound performed which did not show any acute findings. Would continue trend his LFTs. - Will also check hepatitis panel and HIV. Deep vein thrombosis (DVT) prophylaxis with heparin. FULL CODE. Total critical care time spent, not including procedures, approximately 1 hour and 35 minutes. MTDD
--- NOTE | 2019-12-01 09:35 | REP ---
CHEST, SINGLE VIEW: Single view of the chest is performed. Patchy infiltrates are seen diffusely in the left lung, and there are fairly dense infiltrates in the right upper lobe. There may be some mild infiltrate in the medial right lung base. Heart does not appear to be significantly enlarged. There is some widening of the superior mediastinum, which may be technical. I cannot exclude underlying adenopathy. Recommend followup. CT may be performed if clinically indicated. Electronically Signed by Oneal Mera MD 12/01/2019 06:27 P
--- NOTE | 2019-12-01 10:18 | REP ---
CHEST, SINGLE VIEW: Single view of the chest is performed. COMPARISON: 11/30/2019 Endotracheal tube and nasogastric tube are unchanged in position. Diffuse bilateral infiltrates are unchanged. Heart and mediastinum are unchanged. IMPRESSION: Stable exam. Electronically Signed by Oneal Mera MD 12/01/2019 06:31 P
--- NOTE | 2019-12-01 10:19 | REP ---
CHEST, SINGLE VIEW: Single view of the chest is performed. Comparison made with prior exam of the same day. There are bilateral infiltrates diffusely, unchanged. Heart and mediastinum are unchanged. There is placement of an endotracheal tube. The tip is approximately 4 cm above the amalia. Nasogastric tube is seen with sideport in the stomach. Electronically Signed by Oneal Mera MD 12/01/2019 06:31 P
[2019-12-01] MEDS: AZITHROMYCIN INJ 500 MG, VIAL MATE ADAPTER 1 EACH in D5W 250 ML IV SCH (10:24)
[2019-12-01] MEDS ORDERED: MAG SULF 1GM/100ML (MAG RUN) 1 GM in IV 1 EA IV ONE (10:30)
--- NOTE | 2019-12-01 10:55 | RO ---
DATE OF PROCEDURE: 11/30/2019 PREPROCEDURE DIAGNOSES: Acute hypoxemic respiratory failure/ARDS. POSTPROCEDURE DIAGNOSES: Acute hypoxemic respiratory failure/ARDS. PROCEDURE: Endotracheal intubation. ATTENDING PHYSICIAN: Dr. Renetta Barrera INDICATION: Acute hypoxemic respiratory failure. CONSENT: Consent was implied due to the emergent nature of the procedure. PROCEDURE SUMMARY: In the ICU patient was noted to have increasing agitation and combativeness. He was also refusing to keep his oxygen supplementation on. The decision was made then for intubation and mechanical ventilation due to his AMS and acute hypoxemic respiratory failure. A time-out was performed prior to procedure. The patient was placed on monitoring and evaluation advisor, including continuous pulse oximetry. The patient was given presedation with Ativan of 2 mg intravenous (IV), and rapid sequence intubation was conducted. The patient received initially 20 mg of etomidate, although there was some infiltration in the IV and he received an additional 10 mg of etomidate for induction and received 40 mg of succinylcholine for paralysis. The patient was intubated using a size 4 MAC laryngoscope and a size 8.5 endotracheal tube with stylet. The patient was intubated on the first pass attempt. The stylet was removed, and the balloon cuff was inflated. Appropriate endotracheal tube position was confirmed by direct visualization of vocal cord passage, fogging of the tube, CO2 colorimetric indicator, and symmetric breath sounds. The tube was secured at 23 cm at the lips. Post intubation chest x-ray is pending. [facility]
[2019-12-01 11:19] LABS: HEMOGLOBIN A1c 4.8 %
[2019-12-01] MEDS: methylPREDNISolone INJ 40 MG/1 ML VIAL (J2920) IV SCH ×2 (11:41→20:11)
--- NOTE | 2019-12-01 12:55 | IPN ---
DATE: 12/01/2019 Eric is seen while on the hospitalist service. He was admitted to the ICU last night with altered mental status, rhabdomyolysis, sepsis secondary to pneumonia, acute kidney injury, thrombocytopenia, elevated liver function tests, polysubstance drug abuse. He is intubated, sedated. Vital signs stable are stable. He is making adequate amounts of slightly tea-tinged urine. PHYSICAL EXAMINATION: 100/50, oxygen saturation 96%. General appearance: Looks well nourished. HEENT: Shows him to be intubated. Lungs: Decreased breath sounds. Fine rales at the bases. Heart: Regular rhythm. Abdomen: Soft, nontender, no masses. No peripheral edema. LABORATORIES: CK is down to 45,000. Sodium 136, potassium 4.5, BUN 27, creatinine 1.0, white count 11.1, hemoglobin 12.6, platelets 115. Methicillin-resistant Staphylococcus aureus (MRSA) screen is negative. IMPRESSION: 1. Multifocal pneumonia, probably viral. Coronavirus NL63 was isolated on respiratory panel. Will defer antibiotic choice to conductor freight. He is currently on azithromycin, ceftriaxone and vancomycin. MRSA screen is negative. Would at least consider discontinuing the vancomycin. 2. Rhabdomyolysis. Continue hydration. Currently getting normal saline. Urine output is adequate so probably could change to half normal saline later today. 3. Intubation per conductor freight. 4. Polydrug abuse. Patient and family services (PFS) will need to get involved once the patient is out of critical condition. 5. Abnormal liver function tests. These are trending downwards.
[2019-12-01] MEDS: MIDAZOLAM INJ 2 MG/2 ML VIAL (J2250) IV PRN (13:32)
[2019-12-01] MEDS ORDERED: GLUCAGON FOR INJ 1 MG VIAL (J1610) SC PRN (15:00)
[2019-12-01] MEDS ORDERED: GLUCOSE 4 GM CHEW TABLET PO PRN (15:00)
[2019-12-01] MEDS ORDERED: DEXTROSE 50% 50 ML SYRINGE IV PRN (15:00)
[2019-12-01 15:30] LABS: APPEARANCE CLOUDY (CLEAR); SOURCE LEFT UPPER LOBE
[2019-12-01 15:34] LABS: MONOCYTES/MACROPHAGES, BAL 14 %
[2019-12-01 15:35] LABS: APPEARANCE CLOUDY (CLEAR); SOURCE RIGHT UPPER LOBE
[2019-12-01 15:37] LABS: MONOCYTES/MACROPHAGES, BAL 9 %
[2019-12-01 16:20] LABS: ABG BASE EXCESS -2.4 (-2.0-2.0); ABG HCO3 23.5 MEQ/L (22.0-26.0); ABG O2 SATURATION 94.1 % (95.0-99.0); ABG PARTIAL PRESSURE CO2 44.8 mmHg (35.0-45.0); ABG PARTIAL PRESSURE O2 71.8 mmHg (75.0-100.0); ABG STANDARD HCO3 22.4 MEQ/L (22.0-26.0); ABG TOTAL CO2 24.8 MEQ/L (22.0-29.0); ABG pH (ARTERIAL) 7.337 UNITS (7.350-7.450)
--- NOTE | 2019-12-01 17:51 | CCN ---
DATE: 12/01/2019 The patient was seen and examined this morning during bedside rounds. Yesterday in the ICU the patient was noted to be more combative and agitated and was having difficulty keeping his oxygen supplementation on. The decision was made therefore to intubate the patient and mechanically ventilate him. Overnight the patient has not had any acute events. He is on sedation with propofol as well as on fentanyl drip. The patient did have a fever noted with a T-max of 101.1 overnight and currently is 99.0. PHYSICAL EXAMINATION: Temperature is T max 101.1, T-current 99, pulse 73, respirations 25, blood pressure is 110/50, oxygen saturation is 97% on the ventilator at 55% FiO2. Intake: 2.6 liters out, 910 mL. General: The patient is lying in bed, intubated and sedated, and is responsive to painful stimuli only, not following commands. HEENT: Normocephalic, atraumatic. Pupils are pinpoint. There is moist mucous membranes noted. Neck is supple. Trachea is midline. No palpable cervical adenopathy. Cardiovascular: Regular rate and rhythm. Normal S1, S2. Unable to appreciate murmurs. Pulmonary: There is coarse rhonchi with occasional faint expiratory wheeze and some crackles. Abdomen: Soft, nontender and nondistended. Extremities: There is no significant lower extremity edema noted bilaterally. There are some abrasions in the legs. LABORATORY DATA: WBC is 11.1, hemoglobin 12.6, platelets 115. Chemistry: Sodium is 136, potassium 4.5, chloride is 104, bicarbonate 24, BUN 27, creatinine trending down to 1.10, glucose 173, magnesium is 1.7. ABG: pH 7.258, pCO2 of 52.8, pO2 of 136.5. ASSESSMENT AND PLAN: Mr. Holloway is a 34-year male with history of polysubstance abuse who presented to the ED with altered mental status. The patient was also noted to have respiratory depression and acute hypoxemic respiratory failure. He was initially given Narcan in the ED for concern of opioid overdose and he did have improvement in his mentation and respiratory rate with the Narcan however, the patient then became agitated and combative and required intubation and mechanical ventilation. Acute hypoxemic respiratory failure. CT chest showed bilateral opacities with some ground-glass opacities and some denser consolidations in the upper lobes bilaterally, mostly. He did have a fever and leukocytosis and so infectious etiology is likely. His respiratory panel was positive for coronavirus however he may have a possible superimposed bacterial pneumonia as well. Also in the differential given his drug abuse history is cocaine or crack lung and possible inhalation exposures with acute pulmonary toxicity. Acute eosinophilic pneumonia is also possible given the appearance. - Would continue with broad-spectrum antibiotics with ceftriaxone and azithromycin. His MRSA screen was negative and would discontinue vancomycin. - Will also get an echocardiogram to evaluate for any possible vegetations given his history of IV drug abuse as the other potential differential is septic emboli, although less likely given the appearance and the location on CT. - Will followup results of Legionella urine antigen and Mycoplasma. - The patient also had a bronchoscopy performed at the bedside with bronchoalveolar lavage in the left upper lobe and right upper lobe which was sent for cell count and cultures as well as cytology with evaluation for possible PCP. - Will continue with Solu-Medrol 40 mg every 8 hours and will likely wean down in the next few days. - Continue DuoNebs every 4 hours. - Continue with PRVC on the mechanical ventilator but will increase his respiratory rate as his ABG did show a respiratory acidosis. His settings will now be 450/25/50 and 8. Will continue to wean down his FiO2 as tolerated. Will followup his repeat ABG after the ventilator setting changes. - Continue with daily chest x-rays and ABGs while intubated. Continue his care with head of bed elevation and chlorhexidine mouthwash. History of polysubstance use with metabolic encephalopathy likely secondary to his substance abuse. His urine toxicology was positive for cocaine and cannabis. The patient was also given Narcan initially in the ED for a concern of opioid overdose. He then became agitated and is now intubated and sedated on propofol as well as fentanyl given concern for withdrawal after his Narcan. - Continue with propofol and fentanyl for sedation. - The patient will need PFS support later on in admission after he is extubated. - Appreciate the recommendations from Poison Control. Will repeat his valproic acid level as well as his ammonia. Acute renal failure with rhabdomyolysis likely secondary to his substance abuse. He does have a history of cocaine abuse in the past and the patient was also out in the cold weather so there may be a component of exposure as well. - Continue with IV fluid hydration with normal saline. Will likely be able to change to half NS at some point as his urine output has been adequate and his CPK is trending down. - Will continue to monitor electrolytes and replete as needed. - The patient was noted to have hyperglycemia. Has no history of diabetes but will start him on fingerstick glucose checks with sliding scale coverage. Abnormal LFTs with transaminitis and bilirubin. The patient has previous history of alcohol abuse and this may be a component of alcoholic hepatitis, but suspect some of the elevated transaminitis is secondary to his elevated CPK. - The patient did have an abdominal ultrasound which did not show any acute findings. His LFTs are trending down. - Will followup results of hepatitis panel and HIV test. DVT prophylaxis with heparin. FULL CODE. Total critical care time spent not including procedures approximately 40 minutes. MTDD
[2019-12-01] MEDS: HumaLOG INSULIN (NovoLOG) PER UNIT SC SCH ×2 (18:22→23:54)
--- NOTE | 2019-12-01 20:43 | RO ---
DATE OF PROCEDURE: 12/01/2019 INDICATION: Acute hypoxemic respiratory failure. PREPROCEDURE DIAGNOSIS: Acute hypoxemic respiratory failure and pneumonia. POSTPROCEDURE DIAGNOSIS: Acute hypoxemic respiratory failure and pneumonia. ATTENDING PHYSICIAN: Renetta Barrera MD CONSENT: Consent was implied due to the emergent nature of the procedure. Attempts were made to contact the patient's next of kin, which were unsuccessful. ANESTHESIA: The patient is intubated and is on sedation with propofol and fentanyl for analgesia. He was given additional 2 mg IV push of Versed during the procedure. PROCEDURE NOTE: A time-out was performed prior to the procedure. A Cetacaine spray was used to anesthetize the area and provide lubrication through the endotracheal tube. A bedside bronchoscope was used and placed through the adapter into the ET tube. Bronchoscopy of the right and left lungs showed normal anatomy with no endobronchial lesions. There were some scant mucous secretions, but he did not have any significant thick or purulent secretions noted. The patient had bronchoalveolar lavage performed in the right upper lobe and in the left upper lobe. Specimens had some mucus plugs noted, as well as flecks of black in it. The bronchoalveolar lavage specimens were sent for cell count and cytology with a GMS stain, as well as for culture. The patient tolerated the procedure well with no significant hemodynamic instability or hypoxia. Estimated blood loss was negligible
[2019-12-01 22:23] LABS: ALBUMIN 2.7 GM/DL (3.2-5.2); ALT/SGPT 218 U/L (12-78); BILIRUBIN,TOTAL 0.5 MG/DL (0.2-1.0); BLOOD UREA NITROGEN 29 MG/DL (7-18); CARBON DIOXIDE LEVEL 25 MEQ/L (21-32); CHLORIDE LEVEL 107 MEQ/L (98-107); CHOLESTEROL LEVEL 151 MG/DL (< 200); CPK CREATINE PHOSPHOKINASE 9601 U/L (39-308); CREATININE FOR GFR 0.95 MG/DL (0.70-1.30); GLOMERULAR FILTRATION RATE > 60.0 (>60); GLUCOSE, FASTING 194 MG/DL (70-100); LDH LACTATE DEHYDROGENASE 859 U/L (87-241); PHOSPHORUS LEVEL 2.1 MG/DL (2.5-4.9); POTASSIUM SERUM 4.8 MEQ/L (3.5-5.1); SODIUM LEVEL 137 MEQ/L (136-145); TOTAL PROTEIN 5.6 GM/DL (6.4-8.2); TRIGLYCERIDES LEVEL 198 MG/DL (<150)
[2019-12-02] VITALS (20 sets, daily range): BP systolic 96–123; BP diastolic 53–68
[2019-12-02] MEDS: propofoL 1,000 MG in IV 1 EA IV SCH ×7 (00:50→21:59)
[2019-12-02] MEDS: NS 1,000 ML IV SCH (00:50)
[2019-12-02] MEDS: fentaNYL CITRATE 1,000 MCG in NS 80 ML IV SCH ×2 (01:27→16:25)
[2019-12-02] MEDS: methylPREDNISolone INJ 40 MG/1 ML VIAL (J2920) IV SCH ×2 (03:56→15:54)
[2019-12-02 04:46] LABS: BASO % 0.1 % (0.0-1.0); HEMATOCRIT 34.8 % (42.0-52.0); HEMOGLOBIN 11.5 g/dl (13.5-17.5); LYMPH # 0.7 10^3/uL (1.5-5.0); LYMPH % 8.3 % (24.0-44.0); MEAN CORPUSCULAR HEMOGLOBIN 31.6 pg (27.0-33.0); MEAN CORPUSCULAR VOLUME 95.6 fl (80.0-96.0); MONO # 1.1 10^3/uL (0.0-0.8); MONO % 14.4 % (0.0-5.0); NEUTROPHILS % 76.8 % (36.0-66.0); PLATELET COUNT, AUTOMATED 113 10^3/uL (150-450); RED BLOOD COUNT 3.64 10^6/uL (4.30-6.10); WHITE BLOOD COUNT 7.8 10^3/uL (4.0-10.0)
[2019-12-02 05:21] LABS: ALBUMIN 2.7 GM/DL (3.2-5.2); ALT/SGPT 210 U/L (12-78); BILIRUBIN,TOTAL 0.3 MG/DL (0.2-1.0); BLOOD UREA NITROGEN 29 MG/DL (7-18); CALCIUM LEVEL 7.6 MG/DL (8.5-10.1); CARBON DIOXIDE LEVEL 27 MEQ/L (21-32); CHLORIDE LEVEL 110 MEQ/L (98-107); CPK CREATINE PHOSPHOKINASE 6833 U/L (39-308); CREATININE FOR GFR 0.85 MG/DL (0.70-1.30); GLOMERULAR FILTRATION RATE > 60.0 (>60); GLUCOSE, FASTING 181 MG/DL (70-100); MAGNESIUM LEVEL 2.9 MG/DL (1.8-2.4); POTASSIUM SERUM 4.9 MEQ/L (3.5-5.1); SODIUM LEVEL 140 MEQ/L (136-145); TOTAL PROTEIN 5.7 GM/DL (6.4-8.2); VALPROIC ACID (DEPAKOTE) 13.4 UG/ML (50.0-100.0)
[2019-12-02] MEDS: HEPARIN SOD (PORCINE) 5000 UNITS/ML VIAL (J1644 PER 1000UNITS) SC SCH ×3 (05:34→21:06)
[2019-12-02] MEDS: HumaLOG INSULIN (NovoLOG) PER UNIT SC SCH ×3 (05:35→17:36)
[2019-12-02 05:52] LABS: ABG HCO3 23.8 MEQ/L (22.0-26.0); ABG O2 SATURATION 97.8 % (95.0-99.0); ABG PARTIAL PRESSURE CO2 40.3 mmHg (35.0-45.0); ABG PARTIAL PRESSURE O2 100.3 mmHg (75.0-100.0); ABG STANDARD HCO3 23.7 MEQ/L (22.0-26.0); ABG TOTAL CO2 25.1 MEQ/L (22.0-29.0)
[2019-12-02] MEDS ORDERED: FUROSEMIDE 20 MG/2 ML VIAL (J1940) IV ONE (07:00)
--- NOTE | 2019-12-02 07:46 | REP ---
RIGHT WRIST, TWO VIEWS: There is no evidence of an acute fracture, dislocation or intrinsic bone disease. IMPRESSION: No fracture or dislocation. Electronically Signed by Oneal Mera MD 12/02/2019 01:19 P
--- NOTE | 2019-12-02 07:47 | REP ---
RIGHT FOREARM, TWO VIEWS: There is no evidence of an acute fracture, dislocation or intrinsic bone disease. IMPRESSION: No fracture or dislocation. Electronically Signed by Oneal Mera MD 12/02/2019 01:19 P
--- NOTE | 2019-12-02 08:19 | REP ---
Portable chest x-ray: Single view. History: Intubated patient. Comparison chest x-ray: December 01, 2019. Findings: The patient is rotated slightly to the left. The nasogastric tube enters left upper quadrant. Endotracheal tube is seen in good position at the level of the proximal clavicles. There are patchy and fairly extensive bilateral infiltrates in the upper lobes and in the left lower lobe and right lower lobe. These are unchanged. Electronically Signed by Josh Mae MD 12/02/2019 08:11 A
[2019-12-02] MEDS: PANTOPRAZOLE 40MG INJ (PROTONIX) (C9113) IV SCH (09:10)
[2019-12-02] MEDS: CHLORHEXIDINE GLUCONATE 0.12 % 15ML UDC (PERIDEX ORAL RINSE) MT SCH ×2 (09:11→20:42)
[2019-12-02] MEDS: cefTRIAXone SOD 1 GM in D5W MINI-BAG PLUS 50 ML IV SCH (09:11)
[2019-12-02] MEDS: LACTULOSE 20 GM/30 ML SYRUP UD PO SCH ×3 (09:11→20:42)
[2019-12-02] MEDS: AZITHROMYCIN INJ 500 MG, VIAL MATE ADAPTER 1 EACH in D5W 250 ML IV SCH (09:11)
[2019-12-02 11:18] LABS: HEPATITIS A ANTIBODY IGM NEGATIVE (NEGATIVE); HEPATITIS B CORE ANTIBODY IGM NEGATIVE (NEGATIVE); HEPATITIS B SURFACE ANTIGEN NEGATIVE (NEGATIVE); HIV 1&2 SCREEN CENTAUR NEGATIVE (NEGATIVE)
[2019-12-02 11:24] LABS: HEPATITIS C VIRUS ABY INDEX > 11.0 INDEX (<0.8)
--- NOTE | 2019-12-02 14:02 | IPN ---
DATE: 12/02/2019 Eric is seen in the intensive care unit (ICU). He underwent bronchoalveolar lavage yesterday by Dr. Barrera. He is subsequently being managed by the human resource officer. Appreciate Dr. Barrera's involvement. He is being treated for multifocal pneumonia, probably viral, though being covered with antibiotic due to severity of his illness. He had rhabdomyolysis which is responding to hydration. He has history of polydrug abuse, but not showing any significant signs of withdrawal symptoms. PHYSICAL EXAM: Afebrile. 101/54. 93% oxygen saturation. General Appearance: He is sedated. Lungs: Basically clear. Heart: Regular rhythm. Abdomen soft and nontender. No peripheral edema. LABS: Liver function tests are trending down and electrolytes unremarkable. Ammonia is up to 86. CPK is down to 6800. IMPRESSION: 1. Respiratory failure secondary to multifocal pneumonia. He underwent bronchoalveolar lavage yesterday and it suggested infectious etiology. He is intubated and appreciated human resource officer management by Dr. Barrera. He is on ceftriaxone and azithromycin at this point. 2. Acute renal failure rhabdomyolysis. Renal function is improved. CPK (cut off). His IV fluids were discontinued. He received a dose of furosemide this morning. 3. Hyperglycemia. He is not diabetic. His hemoglobin is normal. He has had some stress hyperglycemia in the hospital and is on IV steroids. Currently on sliding scale of insulin with coverage. 4. Elevated ammonia. His ammonia level is elevated. There is no sign of cirrhosis on the ultrasound of his abdomen. Liver was normal. He is on anticonvulsant as an outpatient which can cause elevated ammonia levels. I do not think this needs to be treated at this point. 5. Abnormal liver function tests. These are slowly improving, I suspect related to substance intake.
--- NOTE | 2019-12-02 18:44 | CCN ---
DATE: 12/02/2019 The patient was seen and examined this morning during bedside rounds. Overnight, the patient was noted to have some edema, particularly in his upper extremities. His IV fluids were on hold and he was given a dose of Lasix 20 mg IV. The patient's blood pressure has remained stable and he has been afebrile overnight. He is intubated and is sedated currently and is responsive to painful stimuli but not following commands. PHYSICAL EXAMINATION: Temperature 98.6, pulse 57, respirations 25, blood pressure 101/54, O2 sat is 95% on 50% FiO2. Input 9.5 liters, out 2.3 liters. General: The patient is lying in bed. He is intubated and sedated. He is responsive to painful stimuli but not following commands. HEENT: Normocephalic, atraumatic. Pupils are pinpoint but reactive. There is moist mucous membranes noted. Neck is supple. Trachea is midline. No palpable cervical adenopathy. Cardiovascular: Regular rate and rhythm. Normal S1, S2. Unable to appreciate any murmurs. Pulmonary: There are coarse ventilated breath sounds bilaterally with some occasional crackles at the bases. Abdomen is soft, nontender, nondistended. Extremities: There is no significant lower extremity edema noted bilaterally. There are some abrasions in the legs. In his arms he does have pitting edema on the right arm more than the left. LABORATORIES: WBC 7.8, hemoglobin 11.5, platelets of 113. Chemistry: Sodium is 140, potassium 4.9, chloride is 110, bicarbonate 27, BUN 29, creatinine 0.85, glucose is 181, magnesium 2.9, phosphorus is 2.1, AST and ALT trending down to 294 and 210. CK trending down to 6833, ammonia level increased at 86. ABG pH of 7.390, pCO2 of 40.3, pO2 of 110.3. IMAGING: Chest x-ray this morning shows endotracheal tube in good position. Orogastric tube is in place. There are extensive patchy bilateral infiltrates in the upper lobes and to a lesser degree in the lower lobes, which is unchanged. ASSESSMENT AND PLAN: Mr. Holloway is a 34-year male with a history of polysubstance abuse who presented to the emergency department initially with altered mental status. The patient was noted to have respiratory depression and acute hypoxemic respiratory failure. He was given Narcan in the emergency department for concern of opioid overdose and initially did have some improvement in his respiratory rate and his mentation; however, the patient then became subsequently more agitated and combative in the intensive care unit (ICU) and required intubation and mechanical ventilation. 1. Acute hypoxemic respiratory failure with likely mild acute respiratory distress syndrome (ARDS). His initial CT chest showed bilateral opacities, mostly in the upper lobes and to a lesser degree in the lower lobe. The patient was febrile with leukocytosis and so likely with a pneumonia. He did have a respiratory panel positive for coronavirus but suspect he likely also has a superimposed bacterial pneumonia as well, as his procalcitonin was elevated initially a 4.59. Other possible differential given his drug abuse history was for cocaine or crack lung or possibly pneumonia. However, his bronchoscopy, which was performed yesterday, showed a neutrophil predominant cell count and no eosinophils, although this was performed after he received steroids already. Inflammatory etiology is less likely. We will taper Solu-Medrol as he is less likely to have an inflammatory etiology for his abnormal CT. We will taper him 40 mg every 12 hours and continue with a rapid taper. Continue with broad-spectrum antibiotics with ceftriaxone, azithromycin. We will follow up the results of his bronchoscopy BAL culture and cytology. We will followup results of echocardiogram, which was ordered given his history of IV drug use. Septic emboli is in the differential for the finding on CT, although less likely. Followup results of urine Legionella antigen and Mycoplasma. Continue the patient on mechanical ventilator at [facility] but we will wean down his FiO2 and PEEP and so he will be on 450 / 25/45 and 6. We will continue with daily ABGs and chest x-rays while intubated and continue with vent bundle care with head of bed elevation and chlorhexidine mouthwash. Continue with DuoNebs every 4 hours. History of polysubstance abuse with metabolic encephalopathy, likely secondary to substance abuse with urine toxicology being positive for cocaine and cannabis. Continue with propofol and fentanyl for sedation and continue to titrate for a [place] of 2 to 3. Appreciate the recommendations from of poison control. His repeat ammonia level was increased and so we will start him on lactulose. 2. Acute renal failure with rhabdomyolysis, likely secondary to substance abuse. He does have a history of cocaine abuse in the past so this may have contributed. The patient's renal function has significantly improved and his CPK has significantly trended down. His IV fluids were held yesterday given concern of fluid overload and he was given Lasix 20 mg IV overnight. We will continue to monitor his urine output with the [place] and we will hold IV fluids at this time and continue to monitor his CPK and renal function. We will monitor electrolytes and replete as needed, including his phosphorus. The patient was noted to have hyperglycemia and was started on fingerstick glucose checks with sliding scale coverage. 3. Abnormal liver function tests with transaminitis, likely in the setting of elevated CPK. He had an abdominal ultrasound, which did not show any acute findings and LFTs are trending down. The patient had hepatitis panel testing, which was negative. The patient also had an HIV test, which was negative. 4. Deep vein thrombosis (DVT) prophylaxis with heparin. 5. Gastrointestinal prophylaxis with proton pump inhibitor. FULL CODE. Total critical care time spent, not including procedures, approximately 40 minutes.
--- NOTE | 2019-12-02 19:11 | ECHO ---
DATE OF PROCEDURE: 12/02/2019 REFERRING PHYSICIAN: Dr. Renetta Barrera INDICATION: Fever HEIGHT: 188 cm WEIGHT: 115 kg Rhythm was sinus. This was a moderately technically difficult echocardiogram with the patient imaged in the supine position with the patient on a ventilator. No pericardial effusion. This was a 2D, M-mode, color flow Doppler and pulse wave Doppler examination and included mitral annular tissue Doppler. 2D MEASUREMENTS: Left atrium: 3.9 cm Aortic root: 3.2 cm Ventricular septum: 1.05 cm Posterior wall: 0.87 cm Left ventricle diastole: 5.0 cm LVOT: 2.1 cm Inferior vena cava: 2.9 cm (more than 50% respiratory variation ). DOPPLER MEASUREMENTS: Aortic valve velocity: 99.3 cm/s LVOT velocity: 69.9 cm/s No aortic regurgitation. No mitral regurgitation. Mitral E velocity: 76.0 cm/s Mitral A velocity: 53.3 cm/s Mitral deceleration time: 162 ms Mild tricuspid regurgitation. No pulmonic regurgitation. Estimated right ventricle systolic pressure: 27 mmHg assuming a pressure of 5-10 mmHg. No pulmonic regurgitation. Pulmonary artery systolic pressure: 25 mmHg. MITRAL ANNULAR TISSUE DOPPLER: E prime septal: 10.9 cm/s E prime lateral: 20.1 cm/s DESCRIPTION: Rhythm was sinus. This was a moderately technically difficult echocardiogram. CONCLUSIONS: 1. Normal left ventricle internal dimensions and wall thickness. Normal regional left ventricular (LV) wall motion and wall thickening. Normal LV systolic function. Left ventricular ejection fraction (LVEF) 65% by visual estimate. Normal LV diastolic function. 2. Otherwise normal appearing echocardiogram-Doppler. 3. No vegetations seen.
[2019-12-02] MEDS: NEUTRA-PHOS 1.5 GM PACKET PO SCH (20:42)
[2019-12-03] VITALS (25 sets, daily range): BP systolic 96–172; BP diastolic 50–99; O2SAT 96
[2019-12-03] MEDS: propofoL 1,000 MG in IV 1 EA IV SCH ×8 (00:32→22:43)
[2019-12-03] MEDS: HumaLOG INSULIN (NovoLOG) PER UNIT SC SCH ×4 (00:33→16:08)
[2019-12-03] MEDS: MIDAZOLAM INJ 2 MG/2 ML VIAL (J2250) IV PRN ×3 (00:37→17:54)
[2019-12-03] MEDS: methylPREDNISolone INJ 40 MG/1 ML VIAL (J2920) IV SCH (03:26)
[2019-12-03] MEDS: fentaNYL CITRATE 1,000 MCG in NS 80 ML IV SCH ×3 (03:26→22:44)
[2019-12-03 05:15] LABS: BASO % 0.1 % (0.0-1.0); HEMATOCRIT 35.8 % (42.0-52.0); HEMOGLOBIN 11.7 g/dl (13.5-17.5); LYMPH % 9.9 % (24.0-44.0); MEAN CORPUSCULAR HEMOGLOBIN 31.5 pg (27.0-33.0); MEAN CORPUSCULAR HGB CONC 32.7 g/dl (32.0-36.5); MEAN CORPUSCULAR VOLUME 96.2 fl (80.0-96.0); MONO # 1.2 10^3/uL (0.0-0.8); MONO % 11.9 % (0.0-5.0); PLATELET COUNT, AUTOMATED 153 10^3/uL (150-450); RED BLOOD COUNT 3.72 10^6/uL (4.30-6.10); WHITE BLOOD COUNT 10.3 10^3/uL (4.0-10.0)
[2019-12-03] MEDS: HEPARIN SOD (PORCINE) 5000 UNITS/ML VIAL (J1644 PER 1000UNITS) SC SCH ×3 (05:28→22:11)
[2019-12-03 06:07] LABS: ALBUMIN 2.9 GM/DL (3.2-5.2); ALT/SGPT 179 U/L (12-78); BILIRUBIN,TOTAL 0.4 MG/DL (0.2-1.0); BLOOD UREA NITROGEN 34 MG/DL (7-18); CALCIUM LEVEL 7.9 MG/DL (8.5-10.1); CARBON DIOXIDE LEVEL 27 MEQ/L (21-32); CHLORIDE LEVEL 110 MEQ/L (98-107); CPK CREATINE PHOSPHOKINASE 1789 U/L (39-308); CREATININE FOR GFR 0.85 MG/DL (0.70-1.30); GLOMERULAR FILTRATION RATE > 60.0 (>60); GLUCOSE, FASTING 138 MG/DL (70-100); SODIUM LEVEL 140 MEQ/L (136-145); TOTAL PROTEIN 6.1 GM/DL (6.4-8.2)
[2019-12-03 06:09] LABS: ABG BASE EXCESS 0.2 (-2.0-2.0); ABG HCO3 24.5 MEQ/L (22.0-26.0); ABG O2 SATURATION 97.1 % (95.0-99.0); ABG PARTIAL PRESSURE CO2 38.3 mmHg (35.0-45.0); ABG PARTIAL PRESSURE O2 91.1 mmHg (75.0-100.0); ABG STANDARD HCO3 24.7 MEQ/L (22.0-26.0); ABG TOTAL CO2 25.6 MEQ/L (22.0-29.0); ABG pH (ARTERIAL) 7.423 UNITS (7.350-7.450)
[2019-12-03] MEDS: cefTRIAXone SOD 1 GM in D5W MINI-BAG PLUS 50 ML IV SCH (08:05)
[2019-12-03] MEDS: NEUTRA-PHOS 1.5 GM PACKET PO SCH ×2 (08:05→20:23)
[2019-12-03] MEDS: LACTULOSE 20 GM/30 ML SYRUP UD PO SCH ×3 (08:05→20:23)
[2019-12-03] MEDS: CHLORHEXIDINE GLUCONATE 0.12 % 15ML UDC (PERIDEX ORAL RINSE) MT SCH ×2 (08:05→20:23)
[2019-12-03] MEDS: PANTOPRAZOLE 40MG INJ (PROTONIX) (C9113) IV SCH (08:05)
--- NOTE | 2019-12-03 08:28 | REP ---
Portable chest x-ray: Single view. 12:49 a.m. film History: Intubation. Desaturation. Comparison study 07:04 a.m. film on to December 20, 2019. Findings: There are fairly heavy infiltrates in the upper lobes bilaterally and in the left lower lobe. Plate-like atelectasis is seen in the right base. The infiltrates and the, a little more opaque and slightly more extensive. No new consolidation is appreciated. Heart size is unchanged. Endotracheal tube remains in good position at the level of proximal clavicles. NG tube enters left upper quadrant. Impression: Extensive bilateral infiltrates consistent with pneumonia. Radiographically somewhat progressed. Electronically Signed by Josh Mae MD 12/03/2019 08:20 A
--- NOTE | 2019-12-03 08:40 | REP ---
Portable chest x-ray: Sitting AP view. 07:51 a.m. film. History: Intubated patient. Comparison chest x-ray: 12:49 a.m. earlier this date. Findings: Endotracheal tube is seen just above the level of the proximal clavicles. NG tube enters left upper quadrant of the abdomen. Oxygen delivery tubing and monitoring electrodes are seen. Infiltrates are noted in the upper lobes bilaterally and in the left lower lobe. There is some increased consolidation in the left lower lobe and left hemidiaphragm is obscured. The upper lobe infiltrates are essentially unchanged. Electronically Signed by Josh Mae MD 12/03/2019 08:32 A
[2019-12-03] MEDS: FUROSEMIDE 20 MG/2 ML VIAL (J1940) IV SCH ×2 (10:39→16:08)
--- NOTE | 2019-12-03 10:40 | IPN ---
DATE: 12/03/2019 Eric is seen in the intensive care unit (ICU). The case was discussed with Dr. Barrera, email marketing intern, who is essentially managing the case as a critical care level patient which is appreciated. He has grown out methicillin-sensitive Staphylococcus from his sputum culture, so we are adjusting his medications today. His right upper extremity is swollen and ultrasound is planned and he looks overall volume overloaded with diffuse edema, so diuresis is being initiated. PHYSICAL EXAM: Afebrile. 110/53. General Appearance: He is sedated and intubated. Facial edema is noted. Lungs: Decreased breath sounds. Heart: Regular rhythm. Abdomen: Soft. His right upper extremity is swollen and diameter is greater than the left. LABS: Reviewed. IMPRESSION: 1. Right upper extremity edema. Ultrasound ordered to rule out deep vein thrombosis (DVT). 2. Methicillin-sensitive Staphylococcus pneumonia. Stop the azithromycin and ceftriaxone. Narrow spectrum by changing to cefazolin 2 grams IV every 8 hours. 3. Volume overload. Diuresis has already been initiated by Dr. Barrera. 4. Diabetes requiring 12 units of coverage a day. Will start Detemir insulin at a dose of 5 units per day at bedtime.
--- NOTE | 2019-12-03 13:58 | REP ---
Portable chest x-ray: Single view. History: Central line. Comparison chest x-ray: December 03, 2019. Findings: Endotracheal tube is seen with its tip terminating at the superior margin of the proximal clavicles. An NG tube enters left upper quadrant. Bilateral upper lobe infiltrates and left lower lobe infiltrates persist. Plate-like atelectasis right base. There is a right internal jugular central venous catheter with its tip in the expected location of the right atrium. There is no evidence of pneumothorax. Electronically Signed by Josh Mae MD 12/03/2019 01:49 P
--- NOTE | 2019-12-03 14:19 | CCN ---
DATE: 12/03/2019 The patient was seen and examined this morning during bedside rounds. Overnight, the patient was noted to have a low grade fever with a T-max of 100.4. The patient also had required some increased FiO2 on the ventilator up to 60%. He remains intubated and sedated and responsive only to painful stimuli, but is not following commands. The patient did receive a dose of IV Lasix yesterday 20 mg and did have urine output, however, is not significantly net negative. PHYSICAL EXAMINATION: T-max 100.4, T-current 99.3, pulse is 63, respirations 28, blood pressure 96/50, O2 sat 93% on 60% FiO2. Ins 2.8 liters, out 2.9 liters. General: The patient is lying in bed. He is intubated and sedated. He is responsive to painful stimuli, but is not following commands. HEENT: Normocephalic, atraumatic. Pupils reactive to light bilaterally. There is moist mucous membranes noted. Neck is supple. Trachea is midline. No palpable cervical adenopathy. Cardiovascular: Regular rate and rhythm. Normal S1, S2. Unable appreciate murmurs. Pulmonary: There are some coarse ventilated breath sounds bilaterally with decreased breath sounds at the left base with a few occasional crackles. Abdomen is soft, nontender, nondistended. Extremities: There is no significant lower extremity edema noted bilaterally with some abrasions in the legs. In his arms, he does have edema more on the right arm than on the left. LABORATORY DATA: WBC 10.3, hemoglobin 11.7, platelets are 153. Chemistry: Sodium is 140, potassium 5.0, chloride is 110, bicarb 27, BUN 34, creatinine 0.85, glucose is 138, CPK trending down to 1789. AST and ALT trending down. ABG pH of 7.424, pCO2 of 38.3, pO2 of 91.1. IMAGING STUDIES: Chest x-ray shows ET tube in place and an OG tube coursing below the diaphragm. There are bilateral opacities in the upper lobes as well as some increased opacity in the left lower lobe with some likely left pleural effusion. ECHO: Normal ejection fraction and no significant valvular pathology. No mention of any vegetations noted. ASSESSMENT: Mr. Holloway is a 34-year male with history of polysubstance abuse who presented initially with altered mental status in the setting of his substance abuse. The patient was also noted to have respiratory depression and acute hypoxemic respiratory failure likely secondary to pneumonia versus acute respiratory distress syndrome (ARDS). He was intubated and started on mechanical ventilation in the ICU. 1. Acute hypoxemic respiratory failure with likely mild ARDS. His initial CT chest showed bilateral opacities mostly in the upper lobes as well as some opacity in the lower lobes. The patient was febrile with leukocytosis and suspected to have pneumonia. He did have a respiratory panel positive for coronavirus, but likely with a superimposed bacterial pneumonia. His sputum culture did grow Staph aureus which was methicillin-sensitive Staphylococcus aureus (MSSA). - Will de-escalate his antibiotics as his sputum culture was positive for MSSA. Will follow up the results of his blood cultures as well as and his bronchoscopy BAL culture and cytology. - The patient did have echocardiogram done which did not show any evidence of vegetations. However, with the positive sputum showing MSSA, if there is concern for potential endocarditis and septic emboli given the findings on CT, although not clearly consistent, then he would likely need a transesophageal echocardiogram (MANA) for further evaluation. - Will discontinue Solu-Medrol given his positive sputum culture as other inflammatory etiology such as eosinophilic pneumonia or crack lung is less likely. His BAL did also show mostly neutrophils and no eosinophils as well. - Will followup results of his urine Legionella antigen and Mycoplasma. - Will continue the patient on mechanical ventilator with PRVC with settings of 450/25/50/6. Will wean down his FIO2 today as tolerated. - The patient does have development of some increased consolidation in his left lower lobe as well as some possible pleural effusion. On bedside ultrasound, he did have a small pleural effusion which was not amendable to drainage at this time. Will continue with Lasix as he does appear to have some edema, particularly in his upper extremities and his IJ was significantly dilated. The patient received Lasix of 20 mg IV yesterday, but will increase him to 20 mg IV b.i.d. today and followup his urine output. - Continue with ABGs and chest x-rays while intubated and continue with vent, head of bed elevation, chlorhexidine mouthwash. - Continue with DuoNebs q.4 hours. - Continue with propofol and fentanyl while intubated and titrate for a [place] of 2 to 3. - Will continue with lactulose given his elevated ammonia level and will repeat ammonia level tomorrow morning. 2. Acute renal failure with rhabdomyolysis likely secondary to substance abuse. The patient's creatinine and his CPK have trended down with IV fluids, but he is now thought to have some evidence of fluid overload. - Will continue with IV Lasix and increase to 20 mg b.i.d. and continue to monitor his urine output via [place]. - Will continue to monitor electrolytes and replete as needed. - Will continue with fingerstick glucose checks and sliding scale coverage. - The patient transaminitis has continued to trend down. He did have hepatitis panel testing which was negative and an HIV test which was negative. - The patient does have some difficulty in peripheral access given his edema in his upper extremities as well as a history of IV drug use. Will place a central line for venous access. Deep vein thrombosis (DVT), heparin. Gastrointestinal (GI) prophylaxis, proton pump inhibitor (PPI). Full code. Patient and Family Service (PFS) has been consulted as patient does not have any next of kin identified currently. Total critical care time spent, not including procedures, approximately 40 minutes. MTDD
[2019-12-03] MEDS: ceFAZolin SOD 2 GM in IV 1 EA IV SCH ×2 (15:09→22:11)
--- NOTE | 2019-12-03 16:19 | REP ---
Bilateral upper extremity duplex venous ultrasound: History: Swelling and redness bilateral upper extremities. Rule out venous thrombosis. Findings: The left internal jugular, and bilateral axillary, brachial, basilic, and cephalic veins are anechoic and compressible in the left upper extremity. Color flow imaging is homogeneous. Spectral Doppler interrogation is unremarkable. There is no evidence of right or left upper extremity venous thrombosis. The right internal jugular vein could not be visualized to a bandage . Impression: Negative bilateral upper extremity duplex venous ultrasound. No evidence of venous thrombosis. Electronically Signed by Josh Mae MD 12/03/2019 04:11 P
[2019-12-03] MEDS: LEVEMIR (INSULIN DETEMIR) 1 UNITS/0.01ML SC SCH (20:24)
[2019-12-04] VITALS (23 sets, daily range): BP systolic 100–151; BP diastolic 51–79; O2SAT 94
[2019-12-04] MEDS: HumaLOG INSULIN (NovoLOG) PER UNIT SC SCH ×3 (00:16→11:00)
[2019-12-04] MEDS: propofoL 1,000 MG in IV 1 EA IV SCH ×5 (00:17→08:05)
[2019-12-04 05:07] LABS: BASO % 0.3 % (0.0-1.0); EOS % 0.3 % (0.0-3.0); HEMATOCRIT 38.2 % (42.0-52.0); HEMOGLOBIN 12.5 g/dl (13.5-17.5); LYMPH # 2.9 10^3/uL (1.5-5.0); LYMPH % 29.5 % (24.0-44.0); MEAN CORPUSCULAR HGB CONC 32.7 g/dl (32.0-36.5); MEAN CORPUSCULAR VOLUME 97.7 fl (80.0-96.0); MONO # 1.4 10^3/uL (0.0-0.8); MONO % 14.3 % (0.0-5.0); NEUTROPHILS # 5.2 10^3/uL (1.5-8.5); NEUTROPHILS % 52.8 % (36.0-66.0); PLATELET COUNT, AUTOMATED 154 10^3/uL (150-450); RED BLOOD COUNT 3.91 10^6/uL (4.30-6.10); WHITE BLOOD COUNT 9.9 10^3/uL (4.0-10.0)
[2019-12-04 05:45] LABS: ABG BASE EXCESS 1.7 (-2.0-2.0); ABG HCO3 25.8 MEQ/L (22.0-26.0); ABG O2 SATURATION 96.6 % (95.0-99.0); ABG PARTIAL PRESSURE CO2 38.7 mmHg (35.0-45.0); ABG PARTIAL PRESSURE O2 85.5 mmHg (75.0-100.0); ABG STANDARD HCO3 25.9 MEQ/L (22.0-26.0); ABG TOTAL CO2 26.9 MEQ/L (22.0-29.0); ABG pH (ARTERIAL) 7.441 UNITS (7.350-7.450)
[2019-12-04 05:50] LABS: ALBUMIN 2.9 GM/DL (3.2-5.2); ALT/SGPT 145 U/L (12-78); BILIRUBIN,TOTAL 0.3 MG/DL (0.2-1.0); BLOOD UREA NITROGEN 31 MG/DL (7-18); CALCIUM LEVEL 7.9 MG/DL (8.5-10.1); CARBON DIOXIDE LEVEL 33 MEQ/L (21-32); CHLORIDE LEVEL 108 MEQ/L (98-107); CPK CREATINE PHOSPHOKINASE 568 U/L (39-308); CREATININE FOR GFR 0.87 MG/DL (0.70-1.30); GLOMERULAR FILTRATION RATE > 60.0 (>60); GLUCOSE, FASTING 121 MG/DL (70-100); POTASSIUM SERUM 3.8 MEQ/L (3.5-5.1); SODIUM LEVEL 144 MEQ/L (136-145); TOTAL PROTEIN 5.9 GM/DL (6.4-8.2)
[2019-12-04] MEDS: HEPARIN SOD (PORCINE) 5000 UNITS/ML VIAL (J1644 PER 1000UNITS) SC SCH ×3 (05:56→20:43)
[2019-12-04] MEDS: ceFAZolin SOD 2 GM in IV 1 EA IV SCH ×3 (06:03→22:57)
[2019-12-04] MEDS: dexmedeTOMidine 200 MCG in IV 1 EA IV SCH ×2 (08:08→11:38)
[2019-12-04] MEDS: fentaNYL CITRATE 1,000 MCG in NS 80 ML IV SCH (08:19)
--- NOTE | 2019-12-04 08:26 | RO ---
DATE OF PROCEDURE: 12/03/2019 INDICATION: For better access given patient's poor peripheral access and possible infiltration. PROCEDURE: Right internal jugular central line. PROCEDURE LOCAL ANNOUNCER: Dr. Dilshad Duran DO ATTENDING PHYSICIAN: Dr. Renetta Barrera was in attendance and supervised. CONSENT: Unable to obtain consent given patient's status and no family members present. The procedure was performed urgently and the permission was implied because of the urgent/emergent nature of it. PROCEDURE SUMMARY: Time-out was performed. My hands were washed immediately prior to the procedure. I wore a surgical cap and mask with protective eyewear, full gown, and sterile gloves throughout the procedure. Patient was placed in Trendelenburg position. Right neck and chest region was prepped using chlorhexidine scrub and draped in sterile fashion using a full drape and sterile probe cover employed. The medial and lateral heads of the sternocleidomastoid muscle were identified as was the carotid pulse. The internal jugular vein was identified using the ultrasound. Anesthesia was achieved over the vein using 1% lidocaine. Using real-time out of plane guidance, the introducer needle was inserted into the internal jugular vein under direct ultrasound visualization. Venous blood was withdrawn. The syringe was removed, and the guidewire was advanced into the introducer needle. A small incision was made at the skin surface with a scalpel, and the introducer needle was exchanged for a dilator over the guidewire. After appropriate dilation was obtained, the dilator was exchanged over the wire for a triple-lumen central venous catheter. The wire was removed, and the catheter was sutured in place at 18 cm. A sterile SorbaView shield was placed over the catheter at the insertion site. The patient tolerated the procedure without any hemodynamic compromise. At time of procedure completion, all ports aspirated and flushed properly. Postprocedure chest x-ray indicated the tip of the central line was at the level of the right atrium. ESTIMATED BLOOD LOSS: 10 mL of blood.
[2019-12-04] MEDS: LACTULOSE 20 GM/30 ML SYRUP UD PO SCH (09:00)
--- NOTE | 2019-12-04 09:31 | REP ---
Portable chest x-ray: Single view. History: Intubated patient. Comparison study: December 03, 2019. Findings: Endotracheal tube is unchanged in position at the upper portion of the proximal clavicles. NG tube enters left upper quadrant of the abdomen. Lungs are somewhat under aerated. Bilateral infiltrates appear improved. Hazy opacity persists left base. Electronically Signed by Josh Mae MD 12/04/2019 09:22 A
--- NOTE | 2019-12-04 09:56 | IPN ---
DATE OF SERVICE: 12/04/2019 Reg is seen in intensive care unit (ICU). He is still intubated and essentially under the care of the still photographer service. His ultrasound of lower extremity was negative for deep venous thrombosis (DVT), and he looks less edematous today. He had a 1.5 liter in that diuresis yesterday. PHYSICAL EXAMINATION: 103/53, pulse 67. General appearance: Intubated. unresponsive/sedated. Lungs: Decreased breath sounds. Clear. Heart: Regular rate and rhythm. Abdomen: Soft. Nontender. Nondistended. Less overall edema. LABORATORIES: White count 9.9, hemoglobin 12.5, platelets 154. Sodium 144, potassium 3.8, BUN 31, creatinine 0.8, glucose 121, CK is down to 568. IMPRESSION: 1. Right upper extremity edema. Negative for DVT . 2. Methicillin-sensitive Staphylococcus pneumonia. On cefazolin 2 grams intravenous (IV) every 8 hours. 3. Volume overload. Would continue to diurese. 4. Diabetes. On Detemir insulin sliding scale. Blood sugars are all well controlled. I appreciate the still photographer's aid in this complicated critically ill patient.
[2019-12-04] MEDS: PANTOPRAZOLE 40MG INJ (PROTONIX) (C9113) IV SCH (10:04)
[2019-12-04] MEDS: FUROSEMIDE 20 MG/2 ML VIAL (J1940) IV SCH ×2 (10:04→17:11)
[2019-12-04] MEDS: CHLORHEXIDINE GLUCONATE 0.12 % 15ML UDC (PERIDEX ORAL RINSE) MT SCH ×2 (10:04→20:43)
[2019-12-04] MEDS ORDERED: LORazepam 1 MG TAB PO PRN (11:00)
[2019-12-04] MEDS: QUEtiapine FUMARATE 50 MG TAB PO SCH (11:18)
[2019-12-04] MEDS: PERCOCET 5MG/325MG TAB PO PRN ×2 (11:18→22:15)
[2019-12-04] MEDS ORDERED: HALOPERIDOL 5 MG/ML VIAL (J1630) IV ONE ×2 (12:30→13:00)
[2019-12-04] MEDS: LORazepam 2 MG/ML VIAL (J2060) IV PRN ×3 (12:32→20:22)
[2019-12-04] MEDS ORDERED: MIDAZOLAM INJ 2 MG/2 ML VIAL (J2250) As Ordered ONE (12:38)
--- NOTE | 2019-12-04 12:55 | CCN ---
DATE: 12/04/2019 Patient seen and examined this morning at bedside. Patient requiring increasing amounts of sedation overnight and went up to 475 mcg of propofol. This eventually did work for his sedation; however, he intermittently seems to require a high amount, likely related to his polysubstance abuse. He was afebrile overnight. OBJECTIVE: VITAL SIGNS: Maximum temperature (Tmax) of 99.7 overnight, heart rate of 72, respiratory rate of 25, blood pressure 103/53, saturating 92% on 50% FiO2 on the ventilator. Ins 1260, outs 2730. PHYSICAL EXAM: General: Patient is lying in bed, intubated and sedated. Off sedation, he is able to follow commands. HEENT: Head is normocephalic, atraumatic. Pupils equal, round, and reactive to light bilaterally. Nares patent. Mucous membranes moist. Neck: Supple. Trachea midline. No supraclavicular lymphadenopathy. Cardiovascular: Regular rate and rhythm. Normal S1 and S2. No murmurs, gallops, or rubs. Respiratory: Rhonchorous ventilated breath sounds bilaterally with mildly decreased breath sounds at bases. Abdomen: Soft, nontender, nondistended. Extremities: No lower extremity edema noted bilaterally. Abrasions on anterior surfaces, bilateral lower extremities. Nonpitting edema present in bilateral upper extremities at the level of the elbow. LABORATORY DATA: White blood cell count of 9.9, hemoglobin of 12.5, hematocrit of 38.2, platelet count of 154. Sodium of 144, potassium 3.8, chloride of 108, bicarbonate is 33, BUN of 31, creatinine of 0.87, glucose 121, calcium 7.9, AST of 71, ALT 145, alkaline phosphatase 46, ammonia 23, total CK 568, albumin 2.9. ABG showing pH of 7.441, pCO2 of 38.7, pO2 85.5. IMAGING: Chest x-ray reviewed this morning shows endotracheal tube and nasogastric (NG) tube in good position. Bilateral infiltrates are somewhat improved, and there are still hazy opacities bilaterally, however, they are improved in the left, middle, and lower lung in the left lung. ECHO: Normal ejection fraction (EF), and no significant valvular pathology. No mention of any vegetations noted. ASSESSMENT: Mr. Holloway is a 34-year male with history of polysubstance abuse, who initially presented with altered mental status in the setting of that substance abuse. Patient was noted to have respiratory depression and acute hypoxemic respiratory failure likely secondary to pneumonia versus acute respiratory distress syndrome (ARDS). He was intubated and started on mechanical ventilation in the intensive care unit (ICU). 1. Acute hypoxemic respiratory failure with likely mild ARDS. Initial CT chest showed bilateral opacities in upper lobes as well as some opacities in lower lobes. Patient was febrile with leukocytosis and suspected pneumonia. He also had a respiratory panel positive for coronavirus, with likely superimposed bacterial pneumonia, however. Sputum culture did grow Staphylococcus aureus that was methicillin-sensitive Staphylococcus aureus (MSSA). - Patient will continue his current antibiotics, as his sputum culture was positive for MSSA. Will continue him on the cefazolin. Blood cultures are negative to date, and we will continue to follow his bronchoscopy BAL culture and cytology. The patient's echo did not show any evidence of vegetations; however, with positive sputum showing MSSA and if there is any concern for endocarditis or septic emboli, a transesophageal echocardiogram (MANA) would be needed for further evaluation. Will continue to followup the result of his urine legionella antigen and mycoplasma, as they are still not back. Given that the patient tolerated his spontaneous breathing trial very well with a normal respiratory syncytial virus (RSV), decision was made to extubate him. He tolerated that somewhat well; however, he did become somewhat combative and was trying to refuse the continuous positive airway pressure (CPAP) and subsequent nasal cannula. - We will continue him with some Lasix, as it seems like his urine output did brain picker. Moreover, his upper extremity edema seems to have mildly improved with the 40 mg of IV Lasix today. We will be repeating two additional doses today. Moreover, his chest x-ray also seems to have improved as far as the amount of hazy opacity that was present on today's chest x-ray. - Continue with DuoNebs every 4 hours. - We will continue with the Precedex drip to wean him off of that while he becomes more calm, and will begin changing up his medications to allow for him to not go into withdrawals. - Patient's ammonia levels were significantly improved. Will likely be able to stop his lactulose today. - Patient does have a history of bipolar disorder and is acutely agitated, moreover, he may or may not previously been on a mood stabilizer with valproic acid, as his levels were close to therapeutic ranges. We are starting him on a relatively low dose of Seroquel to see if that helps with his mood difficulties. We will also be giving him some by mouth Percocet as well as some by mouth Ativan to see if that helps prevent him going into any withdrawal. 2. Acute renal failure with rhabdomyolysis, likely secondary to substance abuse. Patient's creatinine has significant improved, and CPK has also down trended with the IV fluids. He does now exhibit some evidence of fluid overload both on chest x-ray and in his bilateral upper extremities. We will, again, give IV Lasix 20 mg twice daily for today and continue to monitor his urine output as well as his electrolytes and replace those as needed. - Will continue with fingerstick glucose checks and sliding scale coverage. - Patient's transaminitis continues to trend down. His hepatitis panel is negative as well as his HIV test. - We will continue the central line for the time being as we were having trouble with peripheral access and possibly infiltration of his IV lines. - Diet. Patient is tolerating sips of liquids and pills okay. We will put an order to advance his diet as tolerated. - Deep venous thrombosis (DVT) prophylaxis continue with heparin. - Gastrointestinal (GI) prophylaxis. Proton pump inhibitor. FULL CODE. Patient and family services (PFS) has been consulted as patient does not have any next of kin. He likely will also need some help in terms of managing his polysubstance abuse and will likely require fairly high amounts of narcotic medications as he required substantive amounts while he was sedated. Total critical care time, not including procedures was 45 minutes.
[2019-12-04] MEDS ORDERED: MIDAZOLAM INJ 2 MG/2 ML VIAL (J2250) IV STA (12:58)
[2019-12-04] MEDS ORDERED: SODIUM CHLORIDE 0.9% INJ 10 ML SYR IV PRN (13:30)
[2019-12-04] MEDS ORDERED: HALOPERIDOL 5 MG/ML VIAL (J1630) IV PRN (13:45)
[2019-12-04] MEDS ORDERED: LORazepam 2 MG/ML VIAL (J2060) As Ordered ONE (15:34)
[2019-12-04] MEDS: SODIUM CHLORIDE 0.9% INJ 10 ML SYR IV SCH ×2 (15:36→20:44)
[2019-12-04] MEDS: LEVEMIR (INSULIN DETEMIR) 1 UNITS/0.01ML SC SCH (20:43)
[2019-12-05] VITALS (11 sets, daily range): BP systolic 102–156; BP diastolic 52–76
[2019-12-05 05:17] LABS: BASO # 0.1 10^3/uL (0.0-0.2); BASO % 0.7 % (0.0-1.0); EOS # 0.2 10^3/uL (0.0-0.5); EOS % 1.3 % (0.0-3.0); LYMPH # 3.1 10^3/uL (1.5-5.0); LYMPH % 25.3 % (24.0-44.0); MEAN CORPUSCULAR HEMOGLOBIN 31.3 pg (27.0-33.0); MEAN CORPUSCULAR HGB CONC 33.3 g/dl (32.0-36.5); MONO # 1.9 10^3/uL (0.0-0.8); NEUTROPHILS # 6.6 10^3/uL (1.5-8.5); NEUTROPHILS % 53.7 % (36.0-66.0); PLATELET COUNT, AUTOMATED 173 10^3/uL (150-450); RED BLOOD COUNT 4.47 10^6/uL (4.30-6.10); WHITE BLOOD COUNT 12.4 10^3/uL (4.0-10.0)
[2019-12-05 05:43] LABS: ALT/SGPT 142 U/L (12-78); BILIRUBIN,TOTAL 0.9 MG/DL (0.2-1.0); BLOOD UREA NITROGEN 21 MG/DL (7-18); CALCIUM LEVEL 8.4 MG/DL (8.5-10.1); CARBON DIOXIDE LEVEL 33 MEQ/L (21-32); CHLORIDE LEVEL 103 MEQ/L (98-107); CREATININE FOR GFR 0.77 MG/DL (0.70-1.30); GLOMERULAR FILTRATION RATE > 60.0 (>60); GLUCOSE, FASTING 88 MG/DL (70-100); POTASSIUM SERUM 3.6 MEQ/L (3.5-5.1); SODIUM LEVEL 140 MEQ/L (136-145); TOTAL PROTEIN 6.3 GM/DL (6.4-8.2)
[2019-12-05] MEDS: HEPARIN SOD (PORCINE) 5000 UNITS/ML VIAL (J1644 PER 1000UNITS) SC SCH ×3 (06:37→22:07)
[2019-12-05] MEDS: ceFAZolin SOD 2 GM in IV 1 EA IV SCH ×3 (06:38→22:08)
[2019-12-05] MEDS: SODIUM CHLORIDE 0.9% INJ 10 ML SYR IV SCH ×3 (06:47→22:00)
--- NOTE | 2019-12-05 08:19 | REP ---
Portable chest x-ray: Single view. History: Intubated patient. Comparison study December 04, 2019. Findings: In the interval since yesterday's radiograph, the endotracheal tube has been withdrawn. A right internal jugular central venous line remains in place. EKG monitoring electrodes are seen. The lungs are symmetrically aerated. There is improved aeration in the left lower lobe. No acute infiltrate is seen. Heart is not enlarged. Electronically Signed by Josh Mae MD 12/05/2019 08:10 A
[2019-12-05] MEDS: CHLORHEXIDINE GLUCONATE 0.12 % 15ML UDC (PERIDEX ORAL RINSE) MT SCH ×2 (09:32→19:54)
[2019-12-05] MEDS: FUROSEMIDE 20 MG/2 ML VIAL (J1940) IV SCH ×2 (09:32→18:29)
[2019-12-05] MEDS: QUEtiapine FUMARATE 50 MG TAB PO SCH (09:32)
[2019-12-05] MEDS: PANTOPRAZOLE 40MG INJ (PROTONIX) (C9113) IV SCH (09:32)
--- NOTE | 2019-12-05 10:18 | IPN ---
DATE: 12/05/2019 Eric is seen in intensive care unit (ICU). He has been extubated. He is significantly better than yesterday. Mental status is improved. He is fully alert and cooperative. PHYSICAL EXAM: 136/76, pulse 72, oxygen saturation 97% on 2 liters. Alert, conversant. Answerers questions appropriately. He is eating breakfast. Lungs: A few rhonchi. Heart: Regular rate and rhythm. Abdomen: Soft. Nontender. Trace peripheral edema of the lower extremities. 1+ edema of the right arm. LABS: Electrolytes were reviewed. Liver functions have improved. BUN/creatinine 21/0.7. Ammonia level is down to normal. White count 12.4, hemoglobin 14, platelets 173. Blood sugars have been generally less than 150. IMPRESSION: 1. Type 1 diabetes. On detemir insulin sliding scale. 2. ARDS. Had good diuresis yesterday, 5 liters over the last two days. Oxygenation is good at this time. 3. Methicillin-sensitive Staphylococcus pneumonia. On Ancef 2 grams intravenous (IV) every 8 hours, and responding to this. 4. History of posttraumatic stress disorder (PTSD). Will consult psychiatry. Dr. Woo is on. I left a message on her phone to call concerning the consultation.
--- NOTE | 2019-12-05 12:28 | CCN ---
DATE OF SERVICE: 12/05/2019 The patient was seen and examined this morning during bedside rounds. Yesterday after extubation, the patient was significantly agitated, combative and somewhat delirious. He required doses of p.r.n. Haldol as well as Ativan for sedation and overnight he did require a p.r.n. dose of Percocet with improvement in his agitation. This morning, the patient appears to be at his baseline mental status. He is conversant appropriately and he states he is confused and does not remember what happened to bring him to the hospital. He currently denies any pain, although he does have some discomfort in his right wrist which he had on presentation to the emergency department (ED). He otherwise denies any chest pain currently. He does have some cough still, but he denies any shortness of breath. He has not had any abdominal pain. No nausea or vomiting. He has been afebrile overnight. The patient was given IV Lasix yesterday for diuresis and he did have significant diuresis. PHYSICAL EXAMINATION: Temperature 98.7. T-max was 100.0. Pulse is 72. Respirations 21. Blood pressure 136/76. O2 sat 97% on 2 liters nasal cannula. Ins 1.5 liters, out 4 liters, net negative 3.1 liters. General: The patient is sitting in bed, appears calmer, and is appropriate now and conversing. He is not in any respiratory distress. He is not using accessory muscles for respiration. HEENT: Normocephalic, atraumatic. Pupils are equal, round and react to light bilaterally. Mucous membranes are moist. Neck is supple. Trachea is midline. There is no palpable cervical adenopathy. Cardiovascular: Regular rate and rhythm. Normal S1, S2. No murmurs appreciated. Respiratory: Improved breath sounds bilaterally with a few crackles at the bases. Abdomen is soft, nontender, nondistended. Extremities: There is no lower extremity edema bilaterally. There is swelling on his right wrist and arm and improved edema in the left arm. LABORATORY DATA: WBC 12.4, hemoglobin 14.0, platelets 173. Chemistries: Sodium is 140, potassium 3.6, chloride is 103, bicarb 33, BUN 21, creatinine 0.77, glucose 88, calcium 8.9, total bilirubin is normal, AST and ALT continue trend down, albumin 3.0. Microbiology: BAL from the left upper lobe grew Staph aureus which is methicillin-sensitive Staphylococcus aureus (MSSA). BAL from the right upper lobe grew normal iliana. IMAGING STUDIES: Chest x-ray this morning shows a right IJ triple lumen in place. The ET tube and OG tube have been removed. There is improvement in the bilateral infiltrates with significant improvement in aeration and the left lower lobe consolidation. ASSESSMENT AND PLAN: Mr. Holloway is a 34-year-old male with history polysubstance abuse, post traumatic stress disorder (PTSD) and a bipolar disorder who presented with altered mental status in the setting of substance abuse. He was also noted to have acute hypoxemic respiratory failure likely secondary to pneumonia versus acute respiratory distress syndrome (ARDS). The patient was intubated and placed on mechanical ventilation in the ICU given his respiratory failure and agitation. Acute hypoxemic respiratory failure was likely mild ARDS: Initial chest CT showed bilateral opacities in upper lobes as well as opacities in the lower lobes. The patient was febrile and his respiratory panel was positive coronavirus; however, he was suspected to have superimposed bacterial pneumonia and his sputum culture and BAL was positive for MSSA. - The patient's antibiotics have been de-escalated to Ancef. His blood cultures are negative to date and his fever curve has improved. The patient's BAL from bronchoscopy has also grown MSSA. - The patient's transthoracic echocardiogram (TTE) did not show any evidence of vegetations concerning for endocarditis. As his leukocytosis and fever have improved, would continue with Ancef for pneumonia and if there is concern for endocarditis then he may need a MANA at that time. Given the improvement in his chest x-ray, however, suspect septic emboli is less likely. - The patient was status post Lasix yesterday with significant improvement in his urine output and in the opacities on his chest x-ray. Would hold off on Lasix for now and continue monitoring his renal function and electrolytes and replete as needed. - The patient's oxygenation has also improved. Will continue with nasal cannula oxygen and wean him off as tolerated to maintain an O2 sat above 90%. - Can continue with DuoNebs. - The patient's ammonia levels have improved and his lactulose was discontinued. The patient has a history bipolar disorder and substance abuse: Yesterday, post extubation he did require Haldol p.r.n. and Ativan p.r.n. for sedation. He was also started on Seroquel for his history of mood disorder. The patient this morning appears calmer and at his baseline mental status. He states he was confused and he does not remember what brought him to the hospital, but he denied ingesting any essie as reported by EMS and police. - Would consult psychiatry for management given his history of mood disorder. He denies suicidal ideation or attempt for this recent admission, but he does have a history in the past of suicidal ideation. - The patient does have a history of opioid dependence. He is on Percocet p.r.n., but he may require other medications given his history of opioid abuse and dependence. - Will continue with the Haldol p.r.n. and Ativan p.r.n. for now, but would address depending on psychiatry recommendations. Acute renal failure with rhabdomyolysis likely secondary substance abuse: The patient's creatinine and CPK have improved with IV fluids and he was given Lasix for evidence of fluid overload with appropriate diuresis. - The patient is continued on fingerstick glucose checks and sliding scale coverage. - Will continue to advance his diet as tolerated. - Will remove his central line when he has adequate peripheral IV access. Diet: Will advance as tolerated. Deep vein thrombosis (DVT) prophylaxis. Heparin. Gastrointestinal (GI) prophylaxis. Proton pump inhibitor (PPI). Full code. The patient did give a number for his girlfriend for us to contact. The number was called, but there was no voice mail available. His other family is in [place] and he did not give us their contact information. Total critical care time spent, not including procedures approximately 40 minutes. Please do not hesitate to call if any further questions or concerns.
--- NOTE | 2019-12-05 18:13 | MHCRPDOC ---
[facility] Consultation Consultation DATE OF CONSULTATION: 12/05/19 CONSULTATION REQUESTED BY: Dr. Cole REASON FOR CONSULTATION: Past psychiatric h/o PTSD, was found confused, w/o shoes in the snow. RELEVANT HISTORY: The patient is a 34 year old male with h/o depression with suicidal ideation, PTSD, bipolar disorder who was found on 11/30/2019 walking barefooted on the snow and presented with confusion. He was started on narcan drip after he arrived to the ED. He was intubated at the ICU. He says the last thing he remembers is chasing his 15 year old daughter down the street because she was out there talking to her boyfriend and he doesn't want her to do that. He says he has been receiving Seroquel, he is not really interested in receiving Depakote once again. He used to receive Depakote, Prazosin and Trazodone. His Depakote levels are very low. PAST PSYCHIATRIC HISTORY: Depression with SI, PTD, bipolar d/o PAST MEDICAL/SURGICAL HISTORY: Chronic back pain . Status post tonsillectomy with adenoidectomy. Status post myringotomy FAMILY HISTORY: He is , has 2 daughters: 15 and 9. He says the 9 year old lives in [place] with his 's cousin who is in the . 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 MENTAL STATUS EXAMINATION: Patient is a 34 year old male, who is alert, dressed in hospital gown, laying in bed. Speech is a little slurred, normal tone, rate, rhythm volume. Language skills are intact. Thought processes including: linear and coherent. Thought content: negative for SI, negative for HI, negative for paranoid, bizarre or grandiose delusions. Denies TAV hallucinations Description of associations: intact. Description of abnormal or psychotic thoughts: Not suicidal, not homicidal, not psychotic Judgment: Limited Insight: Limited Orientation to to place and person, partially to date and time Recent and remote memory: Remote memory is good, recent memory is limited. Attention span and concentration: good. Language: adequate. Fund of knowledge: average. Mood: euthymic. Affect: congruent with mood, reactive, full. DIAGNOSIS: 1. PTSD ( by history) 2. Bipolar disorder ( by history) 3. Depression with suicidal ideation ( by history) PLAN: 1. The patient is not suicidal at this time, he says he is happy with his life, his mood and affect are euthymic. He says he goes to the [facility] for [place] appointments and he has been considering going to [facility] because it takes too long to get an appointment at the [facility]. He says he has a girlfriend who is very supportive, he feels safe to be discharged. 2. He can't start taking Depakote again because he has elevated LFT's and his platelet count was low. He should be discharged home but it would be important to contact his GF to make sure that he has some support once he is discharged. 3. He can walk in at [facility] if he wants to f/u over there for his substance abuse treatment. Vital Signs Vital Signs Date Time Temp Pulse Resp B/P (MAP) Pulse Ox O2 Delivery O2 Flow Rate FiO2 12/05/19 16:00 98.6 65 17 102/52 (69) 93 12/05/19 14:00 Room Air 12/05/19 10:00 1.0 12/04/19 18:00 40 Laboratory Data 24H Labs Laboratory Tests 2 12/05/19 05:07: Immature Granulocyte % (Auto) 4.0H, Neutrophils (%) (Auto) 53.7, Lymphocytes (%) (Auto) 25.3, Monocytes (%) (Auto) 15.0H, Eosinophils (%) (Auto) 1.3, Basophils (%) (Auto) 0.7, Neutrophils # (Auto) 6.6, Lymphocytes # (Auto) 3.1, Monocytes # (Auto) 1.9H, Eosinophils # (Auto) 0.2, Basophils # (Auto) 0.1, Nucleated Red Blood Cells % (auto) 0.0, Anion Gap 4L, Glomerular Filtration Rate > 60.0, Calcium Level 8.4L, Total Bilirubin 0.9#, Aspartate Amino Transf (AST/SGOT) 90H, Alanine Aminotransferase (ALT/SGPT) 142H, Alkaline Phosphatase 80, Total Protein 6.3L, Albumin 3.0L, Albumin/Globulin Ratio 0.91L Home Medications Current Medications Current Medications Medications (Trade) Dose Ordered Sig/Hannah Route PRN Reason Start Time Stop Time Status Last Admin Dose Admin Albuterol/ Ipratropium (Duoneb (Ipr 0.5mg/Alb 2.5mg)) 3 ml Q4HP PRN NEB SOB/WHEEZING 11/30/19 22:15 Azithromycin 500 mg/IV Miscellaneous Supplies 1 each/ Dextrose 255 ml @ 255 mls/hr Q24H IV 12/01/19 10:00 12/03/19 10:13 DC 12/02/19 09:11 Cefazolin Sodium/ Dextrose 2 gm/IV Miscellaneous Supplies 50 ml @ 75 mls/hr Q8H IV 12/03/19 15:00 12/05/19 14:34 Ceftriaxone Sodium 1 gm/ Dextrose 50 ml @ 100 mls/hr Q24H IV 12/01/19 09:00 12/03/19 10:13 DC 12/03/19 08:05 Chlorhexidine Gluconate (Peridex Oral Rinse) SWAB/BRUSH ORAL CAVITY BID MT 12/01/19 09:00 12/05/19 09:32 Dexmedetomidine HCl 200 mcg/IV Miscellaneous Supplies 50 ml @ 6.3 mls/hr Q7H57M IV 11/30/19 22:00 11/30/19 23:35 DC Dexmedetomidine HCl 200 mcg/IV Miscellaneous Supplies 50 ml @ 0 mls/hr Q0M IV 12/04/19 07:30 12/04/19 11:48 DC 12/04/19 11:38 Dextrose (Dextrose 50%) 25 ml ASDIRECTED PRN IV SEE LABEL COMMENTS 12/01/19 15:00 Dextrose (Dextrose 50%) 50 ml STAT STAT IV 11/30/19 20:46 11/30/19 20:51 DC 11/30/19 21:11 Dextrose/Sodium Chloride 1,000 ml @ 200 mls/hr Q5H IV 12/01/19 02:30 12/01/19 02:56 DC Fentanyl Citrate 1000 mcg/Sodium Chloride 100 ml @ 9 mls/hr Q11H7M IV 12/01/19 00:00 12/04/19 11:48 DC 12/04/19 08:19 Furosemide (LASIX injection) 20 mg BID@1000,1700 IV 12/03/19 10:00 12/04/19 00:00 DC 12/03/19 16:08 Furosemide (LASIX injection) 20 mg BID@1000,1700 IV 12/04/19 10:00 12/05/19 09:32 Glucagon (Glucagon) 1 mg ASDIRECTED PRN SC SEE LABEL COMMENTS 12/01/19 15:00 Glucose (Glucose) 16 GM ASDIRECTED PRN PO SEE LABEL COMMENTS 12/01/19 15:00 Haloperidol (Haldol) 5 mg Q4HP PRN IV AGITATION 12/04/19 13:45 12/04/19 17:37 Heparin Sodium (Heparin Lock Flush 10units/ml) 10 units ASDIRECTED PRN IV SEE LABEL COMMENTS 12/04/19 13:30 12/05/19 14:35 Heparin Sodium (Heparin Lock Flush 10units/ml) 10 units HLF IV 12/04/19 14:00 12/05/19 14:34 Heparin Sodium (Porcine) (Heparin) 5,000 units Q8H SC 11/30/19 22:00 12/05/19 14:34 Home Med (Med Rec Complete!) ASDIRECTED XX 11/30/19 21:45 11/30/19 21:38 DC Insulin Detemir (Levemir Insulin) 5 units QHS SC 12/03/19 21:00 12/04/19 20:43 Insulin Human Lispro (HumaLOG INSULIN) See Protocol Table Q6H SC 12/01/19 17:00 12/04/19 13:05 DC 12/04/19 05:55 Lactulose (Cephulac) 15 ml TID PO 12/02/19 09:00 12/04/19 13:05 DC 12/03/19 20:23 Lorazepam (Ativan) 1 mg Q2HP PRN PO AGITATION 12/04/19 11:00 12/04/19 11:18 Lorazepam (Ativan) 2 mg Q4HP PRN IV AGITATION 12/04/19 12:30 12/04/19 20:22 Lorazepam (Ativan) 2 mg STAT STAT IV 11/30/19 17:32 11/30/19 17:34 DC 11/30/19 17:43 Lorazepam (Ativan) 2 mg STAT STAT IV 12/01/19 00:19 12/01/19 00:20 DC 12/01/19 00:47 Methylprednisolone (SOLU medrol) 40 mg Q12H IV 12/02/19 16:00 12/03/19 13:36 DC 12/03/19 03:26 Methylprednisolone (SOLU medrol) 40 mg Q8H IV 12/01/19 12:00 12/02/19 08:57 DC 12/02/19 03:56 Methylprednisolone (SOLUmedrol) 40 mg Q8H IV 12/01/19 04:00 12/01/19 09:31 DC 12/01/19 03:55 Midazolam HCl (Versed) 2 mg Q15MP PRN IV AGITATION 11/30/19 23:45 12/04/19 11:48 DC 12/03/19 17:54 Midazolam HCl (Versed) 2 mg STAT STAT IV 11/30/19 22:45 11/30/19 23:35 DC 11/30/19 23:22 Midazolam HCl (Versed) 2 mg STAT STAT IV 12/04/19 12:58 12/04/19 13:03 DC 12/04/19 12:42 Naloxone HCl (Narcan) 0.4 mg STAT STAT IV 11/30/19 18:15 11/30/19 18:16 DC 11/30/19 18:17 Naloxone HCl (Narcan) 0.4 mg STAT STAT IV 11/30/19 19:05 11/30/19 19:06 DC 11/30/19 19:07 Naloxone HCl (Narcan) 2 mg STAT STAT IV 11/30/19 19:16 11/30/19 19:17 DC 11/30/19 19:20 Naloxone HCl 4 mg/ Dextrose 500 ml @ 50 mls/hr Q10H IV 11/30/19 19:30 12/01/19 02:51 DC 11/30/19 19:46 Oxycodone/ Acetaminophen (Percocet 5mg/ 325mg Tablet) 2 tab Q6HP PRN PO SEVERE PAIN (PS 8-10) 12/04/19 11:00 12/04/19 22:15 Pantoprazole Sodium (Protonix) 40 mg DAILY IV 12/01/19 09:00 12/05/19 09:32 Potassium Phos/ Sodium Phos (Neutra-Phos 1.5gm Packet) 1 pkt BID PO 12/02/19 21:00 12/03/19 22:00 DC 12/03/19 20:23 Propofol 1000 mg/ IV Miscellaneous Supplies 100 ml @ 7.572 mls/ hr [id number] IV 11/30/19 23:35 12/03/19 18:44 DC 12/03/19 18:00 Propofol 1000 mg/ IV Miscellaneous Supplies 100 ml @ 7.572 mls/ hr [id number] IV 12/03/19 18:43 12/04/19 11:48 DC 12/04/19 08:05 Quetiapine Fumarate (SEROquel) 50 mg DAILY PO 12/04/19 09:00 12/05/19 09:32 Sodium Chloride 1,000 ml @ 150 mls/hr Q6H40M IV 11/30/19 17:12 11/30/19 21:31 DC 11/30/19 17:43 Sodium Chloride 1,000 ml @ 150 mls/hr Q6H40M IV 12/01/19 03:00 12/02/19 06:51 DC 12/02/19 00:50 Sodium Chloride 1,000 ml @ 200 mls/hr Q5H IV 11/30/19 23:00 12/01/19 02:26 DC 11/30/19 23:00 Sodium Chloride (Nacl 0.9%) 1,000 ml BOLUS IV 11/30/19 21:15 11/30/19 21:31 DC 11/30/19 21:49 Sodium Chloride (Saline Lock Flush) 10 ml ASDIRECTED PRN IV SEE LABEL COMMENTS 12/04/19 13:30 12/05/19 14:35 Sodium Chloride (Saline Lock Flush) 10 ml SLF IV 12/04/19 14:00 12/05/19 14:34 Vancomycin HCl 500 mg/Dextrose 110 ml @ 110 mls/hr Q8H IV 12/01/19 05:00 12/01/19 14:41 DC 12/01/19 12:21 Vancomycin HCl 750 mg/IV Miscellaneous Supplies 1 each/ Dextrose 275 ml @ 275 mls/hr Q8H IV 12/01/19 04:00 12/01/19 14:41 DC 12/01/19 13:34 Miscellaneous Medications [Patient Comments] , (Reported) UNABLE TO DISCUSS MEDICATION HISTORY WITH PATIENT AT THIS TIME Allergies Coded Allergies: No Known Allergies (Unverified , 05/14/15) DEVON BERNAL MD Dec 05, 2019 18:13
[2019-12-05] MEDS: LEVEMIR (INSULIN DETEMIR) 1 UNITS/0.01ML SC SCH (20:21)
[2019-12-05] MEDS: PERCOCET 5MG/325MG TAB PO PRN (22:07)
[2019-12-06] VITALS (9 sets, daily range): BP systolic 110–148; BP diastolic 69–83
[2019-12-06 04:14] LABS: HEMATOCRIT 45.9 % (42.0-52.0); HEMOGLOBIN 15.5 g/dl (13.5-17.5); MEAN CORPUSCULAR HEMOGLOBIN 31.1 pg (27.0-33.0); MEAN CORPUSCULAR HGB CONC 33.8 g/dl (32.0-36.5); PLATELET COUNT, AUTOMATED 206 10^3/uL (150-450); RED BLOOD COUNT 4.99 10^6/uL (4.30-6.10); WHITE BLOOD COUNT 15.4 10^3/uL (4.0-10.0)
[2019-12-06 04:51] LABS: EOSINOPHILS 4 % (0-3); LYMPHOCYTES 33 % (16-44); METAMYELOCYTES 1 % (0-0); MONOCYTES 8 % (0-5); NEUTROPHILS 54 % (28-66)
[2019-12-06 04:52] LABS: PLATELET ESTIMATE NORMAL (NORMAL)
[2019-12-06] MEDS: SODIUM CHLORIDE 0.9% INJ 10 ML SYR IV SCH (06:00)
[2019-12-06] MEDS: HEPARIN SOD (PORCINE) 5000 UNITS/ML VIAL (J1644 PER 1000UNITS) SC SCH ×3 (06:00→21:35)
[2019-12-06] MEDS: ceFAZolin SOD 2 GM in IV 1 EA IV SCH ×3 (06:01→23:06)
[2019-12-06] MEDS: CHLORHEXIDINE GLUCONATE 0.12 % 15ML UDC (PERIDEX ORAL RINSE) MT SCH (08:40)
[2019-12-06] MEDS: PANTOPRAZOLE 40MG INJ (PROTONIX) (C9113) IV SCH (11:42)
[2019-12-06] MEDS: QUEtiapine FUMARATE 50 MG TAB PO SCH (11:42)
[2019-12-06 12:34] LABS: BLOOD UREA NITROGEN 25 MG/DL (7-18); CALCIUM LEVEL 8.8 MG/DL (8.5-10.1); CARBON DIOXIDE LEVEL 31 MEQ/L (21-32); CHLORIDE LEVEL 100 MEQ/L (98-107); CREATININE FOR GFR 0.83 MG/DL (0.70-1.30); GLOMERULAR FILTRATION RATE > 60.0 (>60); GLUCOSE, FASTING 84 MG/DL (70-100); POTASSIUM SERUM 3.8 MEQ/L (3.5-5.1); SODIUM LEVEL 136 MEQ/L (136-145)
[2019-12-06] MEDS ORDERED: INFLUENZA QUADRIVALENT PF VACCINE 0.5ML SYRINGE (90686) IM SCH (12:45)
--- NOTE | 2019-12-06 21:33 | IPN ---
DATE: 12/06/2019 Eric is seen in the intensive care unit (ICU). He continues to have daily progression and improvement. He was seen by psychiatry who did not feel he had suicidal ideation and could be safely discharged home with outpatient mental health substance abuse followup. He is less short of breath today. He has had no fever and no chills. Less cough. PHYSICAL EXAMINATION: Blood pressure 126/77, pulse 67, respiratory rate 18, 93% oxygen saturation, afebrile. GENERAL APPEARANCE: He is alert, conversant, in no distress. LUNGS: Scattered rhonchi. HEART: Regular rate and rhythm. ABDOMEN: Soft, nontender. No peripheral edema of the legs. He still has 1+ edema of the right arm. He moves arms and legs with equal strength. LABORATORY DATA: White count 15.4, hemoglobin , platelets 206. Sodium 140, potassium 3.6, BUN 21, creatinine 0.7. Liver functions are stable. Last ammonia level was normal. IMPRESSION: 1. Methicillin Staphylococcus pneumonia. Continue Ancef 2 grams IV every eight hours. 2. Acute respiratory distress syndrome (ARDS). Oxygenation has improved. He is still on nasal cannula. He can be safely moved out of intensive care unit (ICU). 3. Type 1 diabetes, on detemir insulin and sliding scale. 4. Leukocytosis. I am a bit concerned about the bump in his white count. There is no fever and clinically he has improved but we will keep an eye on this. I will get a C-reactive protein for tomorrow. 5. History of drug and alcohol abuse. He is showing no signs of withdrawal. We can stop the Haldol. 6. Volume overload. He seems clinically improved and we can stop the IV furosemide.
[2019-12-07 06:00] VITALS: BP 138/67
[2019-12-07] MEDS: HEPARIN SOD (PORCINE) 5000 UNITS/ML VIAL (J1644 PER 1000UNITS) SC SCH ×2 (06:35→14:05)
[2019-12-07] MEDS: ceFAZolin SOD 2 GM in IV 1 EA IV SCH ×3 (06:36→14:13)
[2019-12-07 06:52] LABS: HEMOGLOBIN 15.9 g/dl (13.5-17.5); MEAN CORPUSCULAR HEMOGLOBIN 31.4 pg (27.0-33.0); MEAN CORPUSCULAR HGB CONC 33.8 g/dl (32.0-36.5); MEAN CORPUSCULAR VOLUME 92.7 fl (80.0-96.0); PLATELET COUNT, AUTOMATED 203 10^3/uL (150-450); RED BLOOD COUNT 5.07 10^6/uL (4.30-6.10)
[2019-12-07 07:13] LABS: ALT/SGPT 90 U/L (12-78); BILIRUBIN,TOTAL 0.6 MG/DL (0.2-1.0); BLOOD UREA NITROGEN 20 MG/DL (7-18); CALCIUM LEVEL 8.7 MG/DL (8.5-10.1); CARBON DIOXIDE LEVEL 27 MEQ/L (21-32); CHLORIDE LEVEL 104 MEQ/L (98-107); CREATININE FOR GFR 0.73 MG/DL (0.70-1.30); GLOMERULAR FILTRATION RATE > 60.0 (>60); GLUCOSE, FASTING 102 MG/DL (70-100); POTASSIUM SERUM 4.1 MEQ/L (3.5-5.1); SODIUM LEVEL 137 MEQ/L (136-145); TOTAL PROTEIN 7.3 GM/DL (6.4-8.2)
[2019-12-07 08:06] LABS: MYCOPLASMA PNEUMONIAE IgG 452 U/mL (0-99); MYCOPLASMA PNEUMONIAE IgM <770 U/mL (0-769)
[2019-12-07] MEDS: PANTOPRAZOLE 40MG INJ (PROTONIX) (C9113) IV SCH (08:26)
[2019-12-07] MEDS: QUEtiapine FUMARATE 50 MG TAB PO SCH (08:26)
[2019-12-07] MEDS ORDERED: KEFL500C17 PO (14:23)
--- NOTE | 2019-12-08 11:55 | DSES ---
DATE OF ADMISSION: 11/30/2019 DATE OF DISCHARGE: (AGAINST MEDICAL ADVICE): 12/07/2019 DICTATION DATE: 12/08/2019 PRINCIPAL DIAGNOSIS: Acute respiratory failure secondary to drug ingestion and methicillin-sensitive Staphylococcus pneumonia. SECONDARY DIAGNOSES: Bipolar disorder. Substance abuse. History of opioid dependence. Acute respiratory distress syndrome. Type 1 diabetes. HISTORY: Eric Holloway was admitted to the ICU, obtunded and altered mental status secondary to drug ingestion. Details in history and physical for admission. HOSPITAL COURSE: Admitted to the ICU principally managed by the manager oracle database. Was on a ventilator and required sedation. Was found to have Methicillin-sensitive Staphylococcus and underwent bronchoalveolar lavage which showed some Methicillin-sensitive Staphylococcus. This was treated with Ancef 2 grams IV every 8 hours. He had good clinical response to this. He was extubated and transferred up to the floor. He signed out against medical advice on 12/07/2019 after a long discussion and he was fully appraised of the risks associated with this. SIGNIFICANT LABS: White count on day he left was 12. Hemoglobin 15, platelets 203. Sodium 137, potassium 4.1, BUN 20, creatinine 0.7, glucose 102. AST 38, ALT 90. Drug screen positive for opiates and cannabinoids. Hepatitis panel for A and B was negative. He has elevated Hepatitis C and is aware of this and understands he needs to followup with this as well. He had CT of the abdomen and pelvis, unremarkable. Liver was unremarkable. Had a chest CT that showed the infiltrates. Diffuse ground-glass opacities both lungs, suspicious for multifocal pneumonia. DISPOSITION: He left against medical advice. Sent a prescription for Keflex 500 mg every 8 hours for 10 days to his pharmacy. He had been advised previously when seen by psychiatry/Dr. Woo to followup with [facility] after discharge and this was reinforced as well. PROGNOSIS: Poor due to noncompliance and drug using behavior.
== END 2019-12-07 14:15 | disposition left against medical advice (07) | DRG 720 ==
LOC: M ED 17:06 → EDUNIT# 17:06 → EDBD 17:06 → M ED INP 21:07 → ENRESERVDT 22:10 → ENRESERVTM 22:10 → M ICU 22:45 → M MS5PR 12-06 13:10
PROVIDERS: ADMIT Internal Medicine; ATTEND Family Medicine
PROC: 0BH17EZ Insertion of Endotracheal Airway into Trachea, Via Natural or Artificial Opening (ICD-10-PCS; principal; 2019-11-30)
PROC: 5A1945Z Respiratory Ventilation, 24-96 Consecutive Hours (ICD-10-PCS; 2019-11-30)
PROC: 0B9C8ZX Drainage of Right Upper Lung Lobe, Via Natural or Artificial Opening Endoscopic, Diagnostic (ICD-10-PCS; 2019-12-01)
PROC: 0B9G8ZX Drainage of Left Upper Lung Lobe, Via Natural or Artificial Opening Endoscopic, Diagnostic (ICD-10-PCS; 2019-12-01)
PROC: 02H633Z Insertion of Infusion Device into Right Atrium, Percutaneous Approach (ICD-10-PCS; 2019-12-03)
DX: A41.9 Sepsis, unspecified organism (principal); J96.01 Acute respiratory failure with hypoxia; J15.211 Pneumonia due to Methicillin susceptible Staphylococcus aureus; N17.9 Acute kidney failure, unspecified; M62.82 Rhabdomyolysis; D69.6 Thrombocytopenia, unspecified; E11.65 Type 2 diabetes mellitus with hyperglycemia; F31.9 Bipolar disorder, unspecified; F43.10 Post-traumatic stress disorder, unspecified; M54.5 Low back pain; T40.7X1A Poisoning by cannabis (derivatives), accidental (unintentional), initial encounter; E16.2 Hypoglycemia, unspecified; R74.0 Nonspecific elevation of levels of transaminase and lactic acid dehydrogenase [LDH]; E66.9 Obesity, unspecified; Z68.32 Body mass index [BMI] 32.0-32.9, adult; F17.210 Nicotine dependence, cigarettes, uncomplicated; F12.10 Cannabis abuse, uncomplicated; F14.10 Cocaine abuse, uncomplicated; F10.10 Alcohol abuse, uncomplicated; F15.10 Other stimulant abuse, uncomplicated; R45.1 Restlessness and agitation; Z91.82 Personal history of military deployment

== ENCOUNTER 2020-06-16 11:45 | Emergency (ER) | payer MEDICAID, OTHER ==
[~2020-06-16] VITALS: Ht 175.3 cm; Wt 91.9 kg
[2020-06-16 11:45] VITALS: BP 137/69
[~2020-06-16 11:45] MED LIST changes: +DIVA500T94 PO; +KEFL500C17 PO; +PATIENT COMMENTS
[2020-06-16] MEDS ORDERED: GABA-843 PO (11:50)
[2020-06-16 12:36] VITALS: O2SAT 97
[2020-06-16 13:27] LABS: BASO % 0.3 % (0.0-1.0); EOS # 0.2 10^3/uL (0.0-0.5); EOS % 2.3 % (0.0-3.0); HEMATOCRIT 42.9 % (42.0-52.0); HEMOGLOBIN 14.2 g/dl (13.5-17.5); LYMPH # 1.5 10^3/uL (1.5-5.0); LYMPH % 21.8 % (24.0-44.0); MEAN CORPUSCULAR HEMOGLOBIN 31.3 pg (27.0-33.0); MEAN CORPUSCULAR HGB CONC 33.1 g/dl (32.0-36.5); MEAN CORPUSCULAR VOLUME 94.5 fl (80.0-96.0); MONO # 1.1 10^3/uL (0.0-0.8); MONO % 16.2 % (0.0-5.0); NEUTROPHILS # 4.2 10^3/uL (1.5-8.5); NEUTROPHILS % 59.1 % (36.0-66.0); PLATELET COUNT, AUTOMATED 193 10^3/uL (150-450); RED BLOOD COUNT 4.54 10^6/uL (4.30-6.10)
[2020-06-16 14:01] LABS: ALBUMIN 3.5 GM/DL (3.2-5.2); ALT/SGPT 49 U/L (12-78); BILIRUBIN,DIRECT 0.2 MG/DL (0.0-0.2); BILIRUBIN,TOTAL 0.3 MG/DL (0.2-1.0); BLOOD UREA NITROGEN 13 MG/DL (7-18); CALCIUM LEVEL 8.9 MG/DL (8.5-10.1); CARBON DIOXIDE LEVEL 33 MEQ/L (21-32); CHLORIDE LEVEL 106 MEQ/L (98-107); CK-MB VALUE MASS 3.8 NG/ML (<3.6); CPK CREATINE PHOSPHOKINASE 410 U/L (39-308); CREATININE FOR GFR 0.77 MG/DL (0.70-1.30); GLOMERULAR FILTRATION RATE > 60.0 (>60); GLUCOSE, FASTING 95 MG/DL (70-100); LIPASE 212 U/L (73-393); MB/CK RELATIVE INDEX 0.93 (< OR =4); SODIUM LEVEL 138 MEQ/L (136-145); TOTAL PROTEIN 6.5 GM/DL (6.4-8.2); TROPONIN I < 0.02 NG/ML (< 0.10)
[2020-06-16 15:08] LABS: AMPHETAMINES LEVEL URINE NEGATIVE (NEGATIVE); BARBITURATES URINE NEGATIVE (NEGATIVE); BENZODIAZEPINES URINE NEGATIVE (NEGATIVE); CANNABINOIDS URINE POSITIVE (NEGATIVE); COCAINE METABOLITE URINE POSITIVE (NEGATIVE); METHADONE URINE NEGATIVE (NEGATIVE); OPIATES URINE NEGATIVE (NEGATIVE); PHENCYCLIDINE URINE NEGATIVE (NEGATIVE)
--- NOTE | 2020-06-20 09:51 | ECGEPIP ---
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
== END 2020-06-16 16:07 | disposition home or self-care (01) ==
LOC: M ED 11:45
DX: J06.9 Acute upper respiratory infection, unspecified (principal); B34.9 Viral infection, unspecified; R07.89 Other chest pain; R94.31 Abnormal electrocardiogram [ECG] [EKG]; Z11.59 Encounter for screening for other viral diseases; E78.5 Hyperlipidemia, unspecified; G89.29 Other chronic pain; M54.5 Low back pain; G43.909 Migraine, unspecified, not intractable, without status migrainosus; F43.10 Post-traumatic stress disorder, unspecified; F31.9 Bipolar disorder, unspecified; F19.10 Other psychoactive substance abuse, uncomplicated; F17.200 Nicotine dependence, unspecified, uncomplicated

== ENCOUNTER 2020-07-01 02:41 | Emergency (ER) | payer MEDICAID, OTHER ==
[~2020-07-01] VITALS: Ht 175.3 cm; Wt 61.4 kg
[~2020-07-01 02:41] MED LIST changes: +GABA-843 PO
[2020-07-01] MEDS ORDERED: DOXYCYCLINE HYCLATE 100MG TABLET PO ONE (06:00)
[2020-07-01] MEDS ORDERED: BACT800T5 PO (07:35)
[2020-07-01 08:08] VITALS: BP 133/62
== END 2020-07-01 08:28 | disposition home or self-care (01) ==
LOC: M ED 02:41
DX: L03.116 Cellulitis of left lower limb (principal); F17.200 Nicotine dependence, unspecified, uncomplicated

== ENCOUNTER 2021-01-19 17:42 | Emergency (ER) | payer OTHER, SELFPAY ==
[~2021-01-19] VITALS: Ht 175.3 cm; Wt 107.0 kg
[~2021-01-19 17:42] MED LIST changes: +BACT800T5 PO; +GABA-282 PO; -GABA-843 PO
[2021-01-19] MEDS ORDERED: NS 1,000 ML IV ONE (19:40)
[2021-01-19 20:04] LABS: BASO % 0.2 % (0.0-1.0); HEMATOCRIT 44.4 % (42.0-52.0); HEMOGLOBIN 15.5 g/dl (13.5-17.5); LYMPH # 1.5 10^3/uL (1.5-5.0); LYMPH % 12.5 % (24.0-44.0); MEAN CORPUSCULAR HEMOGLOBIN 31.3 pg (27.0-33.0); MEAN CORPUSCULAR HGB CONC 34.9 g/dl (32.0-36.5); MEAN CORPUSCULAR VOLUME 89.7 fl (80.0-96.0); MONO # 1.7 10^3/uL (0.0-0.8); MONO % 14.1 % (2.0-8.0); NEUTROPHILS # 8.8 10^3/uL (1.5-8.5); NEUTROPHILS % 72.9 % (36.0-66.0); PLATELET COUNT, AUTOMATED 167 10^3/uL (150-450); RED BLOOD COUNT 4.95 10^6/uL (4.30-6.10)
[2021-01-19 20:17] LABS: AMPHETAMINES LEVEL URINE POSITIVE (NEGATIVE); BARBITURATES URINE NEGATIVE (NEGATIVE); BENZODIAZEPINES URINE NEGATIVE (NEGATIVE); CANNABINOIDS URINE POSITIVE (NEGATIVE); COCAINE METABOLITE URINE NEGATIVE (NEGATIVE); METHADONE URINE NEGATIVE (NEGATIVE); OPIATES URINE NEGATIVE (NEGATIVE); PHENCYCLIDINE URINE NEGATIVE (NEGATIVE)
[2021-01-19 20:26] LABS: WHITE BLOOD COUNT 12.1 10^3/uL (4.0-10.0)
[2021-01-19 20:30] VITALS: BP 134/67
[2021-01-19 20:33] LABS: ACETAMINOPHEN LEVEL < 2.0 UG/ML (10.0-30.0); ALBUMIN 4.3 GM/DL (3.2-5.2); ALT/SGPT 159 U/L (12-78); BILIRUBIN,DIRECT 0.4 MG/DL (0.0-0.2); BILIRUBIN,TOTAL 1.6 MG/DL (0.2-1.0); BLOOD UREA NITROGEN 17 MG/DL (7-18); CALCIUM LEVEL 8.8 MG/DL (8.5-10.1); CARBON DIOXIDE LEVEL 28 MEQ/L (21-32); CHLORIDE LEVEL 100 MEQ/L (98-107); CPK CREATINE PHOSPHOKINASE 13493 U/L (39-308); CREATININE FOR GFR 0.91 MG/DL (0.70-1.30); ETHYL ALCOHOL (ETHANOL) < 0.003 % (0.000-0.010); GLOMERULAR FILTRATION RATE > 60.0 (>60); GLUCOSE, FASTING 92 MG/DL (70-100); POTASSIUM SERUM 3.7 MEQ/L (3.5-5.1); SALICYLATE LEVEL < 1.7 MG/DL (5.0-30.0); SODIUM LEVEL 134 MEQ/L (136-145); TOTAL PROTEIN 7.4 GM/DL (6.4-8.2)
[2021-01-19 20:42] LABS: ABG BASE EXCESS 0.1 (-2.0-2.0); ABG HCO3 23.5 MEQ/L (22.0-26.0); ABG O2 SATURATION 99.1 % (95.0-99.0); ABG PARTIAL PRESSURE CO2 34.8 mmHg (35.0-45.0); ABG PARTIAL PRESSURE O2 137.4 mmHg (75.0-100.0); ABG STANDARD HCO3 24.7 MEQ/L (22.0-26.0); ABG TOTAL CO2 24.6 MEQ/L (22.0-29.0); ABG pH (ARTERIAL) 7.448 UNITS (7.350-7.450)
--- NOTE | 2021-01-19 20:43 | REPVR ---
PROCEDURE INFORMATION: Exam: XR Chest Exam date and time: 01/19/2021 7:55 PM Age: 35 years old Clinical indication: Other: Overdose; Additional info: Drug overdose TECHNIQUE: Imaging protocol: XR of the chest. Views: 1 view. COMPARISON: CR Chest, 2 view PA, Lat 06/16/2020 2:25 PM FINDINGS: Lungs: There is no pulmonary vascular congestion. There is no evidence of focal parenchymal consolidation. Pleural spaces: There are no pleural effusions. There is no evidence of pneumothorax. Heart/Mediastinum: The cardiac silhouette is within normal limits. Bones/joints: No acute osseous abnormality is identified. IMPRESSION: No acute cardiopulmonary disease identified. Electronically signed by: Sara Valentino On 01/19/2021 20:43:06 PM
--- NOTE | 2021-01-21 12:35 | ECGEPIP ---
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
--- NOTE | 2021-01-21 12:37 | ECGEPIP ---
[facility] - ED Test Date: 2021-01-19 Pat Name: DOMO FREEMAN Department: Room: - Gender: Male Field Hand: rafi VALDOVINOSB: 1985 Requested By: TIFFANY Sherman Order Number: [id number] Reading MD: Rosi Muñoz Measurements Intervals [place] Rate: 99 P: 45 [place]: 140 QRS: -24 QRSD: 100 T: 7 QT: 356 QTc: 456 Interpretive Statements Normal sinus rhythm Minimal voltage criteria for LVH, may be normal variant ( R in aVL ) Cannot rule out Anterior infarct , age undetermined similar 01/19/21 Electronically Signed on 01-21-2021 12:37:18 EDT by Rosi Muñoz
== END 2021-01-19 20:56 | disposition left against medical advice (07) ==
LOC: EDBD 17:42 → M ED 17:42
DX: F19.10 Other psychoactive substance abuse, uncomplicated (principal); M62.82 Rhabdomyolysis; Z53.9 Procedure and treatment not carried out, unspecified reason

== ENCOUNTER 2021-02-15 01:21 | Inpatient (IN) | payer OTHER ==
[~2021-02-15] VITALS: Ht 175.3 cm; Wt 108.4 kg
[2021-02-15] MEDS ORDERED: METH10TA2 PO (01:29)
[2021-02-15] MEDS ORDERED: ACETAMINOPHEN 325 MG TAB PO ONE (02:00)
--- NOTE | 2021-02-15 02:56 | REPVR ---
PROCEDURE INFORMATION: Exam: XR Chest Exam date and time: 02/15/2021 2:13 AM Age: 35 years old Clinical indication: Pain; Other: Unspecified; Additional info: Chest pain TECHNIQUE: Imaging protocol: XR of the chest. Views: 1 view. COMPARISON: CR PORTABLE CHEST X-RAY 01/19/2021 7:50 PM FINDINGS: Lungs: There is decreased inflation of the lungs. No interval focal infiltrates. Pleural spaces: Unremarkable. No pleural effusion. No pneumothorax. Heart/Mediastinum: The heart and mediastinum are unchanged. Bones/joints: Unremarkable. IMPRESSION: Essentially stable poor inspiratory chest since 01/19/2021. Electronically signed by: Arnaud Aldana On 02/15/2021 02:55:58 AM
[2021-02-15 03:00] LABS: HEMATOCRIT 40.2 % (42.0-52.0); HEMOGLOBIN 13.8 g/dl (13.5-17.5); MEAN CORPUSCULAR HGB CONC 34.3 g/dl (32.0-36.5); MEAN CORPUSCULAR VOLUME 90.3 fl (80.0-96.0); PLATELET COUNT, AUTOMATED 116 10^3/uL (150-450); RED BLOOD COUNT 4.45 10^6/uL (4.30-6.10)
[2021-02-15 03:10] LABS: WHITE BLOOD COUNT 12.3 10^3/uL (4.0-10.0)
[2021-02-15 03:15] LABS: ATYPICAL LYMPH 7 % (0-5); LYMPHOCYTES 3 % (16-44); MONOCYTES 10 % (0-5); MYELOCYTES 1 % (0-0); NEUTROPHILS 77 % (28-66)
[2021-02-15 03:16] LABS: BURR CELLS 1+; PLATELET CLUMPS SMALL AMT; PLATELET ESTIMATE NORMAL (NORMAL); TOXIC VACUOLATION 1+
[2021-02-15 03:36] LABS: ALBUMIN 2.6 GM/DL (3.2-5.2); ALT/SGPT 214 U/L (12-78); BILIRUBIN,DIRECT 0.8 MG/DL (0.0-0.2); BILIRUBIN,TOTAL 1.3 MG/DL (0.2-1.0); BLOOD UREA NITROGEN 20 MG/DL (7-18); CALCIUM LEVEL 8.4 MG/DL (8.5-10.1); CARBON DIOXIDE LEVEL 25 MEQ/L (21-32); CHLORIDE LEVEL 93 MEQ/L (98-107); CK-MB VALUE MASS < 1.0 NG/ML (<3.6); CPK CREATINE PHOSPHOKINASE 92 U/L (39-308); CREATININE FOR GFR 0.88 MG/DL (0.70-1.30); GLOMERULAR FILTRATION RATE > 60.0 (>60); GLUCOSE, FASTING 112 MG/DL (70-100); LIPASE 23 U/L (73-393); MB/CK RELATIVE INDEX 1.09 (< OR =4); SODIUM LEVEL 130 MEQ/L (136-145); TROPONIN I < 0.02 NG/ML (< 0.10)
[2021-02-15] MEDS ORDERED: NS 3,000 ML in IV 1 EA IV ONE (04:00)
[2021-02-15] MEDS ORDERED: VANCOMYCIN HCL 1,000 MG, VIAL MATE ADAPTER 1 EACH in NS 250 ML IV SCH ×2 (04:05→19:00)
[2021-02-15] MEDS ORDERED: CLINDAMYCIN 900 MG in IV 1 EA IV ONE (04:05)
[2021-02-15] MEDS ORDERED: KETOROLAC 30 MG/ML 1ML VIAL IV ONE (04:05)
[2021-02-15] MEDS ORDERED: CEFEPIME HCL 1 GM in D5W MINI-BAG PLUS 50 ML IV ONE (04:05)
[2021-02-15] MEDS ORDERED: ONDANSETRON 4MG/2ML VIAL IV PRN (04:50)
[2021-02-15] MEDS ORDERED: MAALOX 30 ML SUSP *UDC PO PRN (04:50)
[2021-02-15] MEDS ORDERED: MOM 30ML SUSPENSION UDC PO PRN (04:50)
--- NOTE | 2021-02-15 04:52 | REPVR ---
PROCEDURE INFORMATION: Exam: US Left Non-Vascular Joint or Other Extremity Structure Exam date and time: 02/15/2021 4:44 AM Age: 35 years old Clinical indication: Cellulitis; Arm, upper and arm, lower; Left; Additional info: Examine abscess extent TECHNIQUE: Imaging protocol: Left US joint or other nonvascular extremity structure or structures. Real-time ultrasound with image documentation. Limited study. Exam focused on the upper extremity in the region of clinical interest. COMPARISON: US DUPLEX EXT UPPER VEINS BILAT 12/03/2019 11:39 AM FINDINGS: Soft tissues: Scanning in an area of redness demonstrates no abscess or fluid collection. Vasculature: Incidental note is thrombus in the left cephalic vein above the mid forearm. IMPRESSION: 1. Scanning in the area of redness demonstrates no abscess or fluid collection. 2. Incidental note is thrombus in the left cephalic vein above the mid forearm. Electronically signed by: Arnaud Aldaan On 02/15/2021 04:52:14 AM
[2021-02-15] MEDS ORDERED: METH10CO PO (05:00)
--- NOTE | 2021-02-15 05:50 | HPEPDOC ---
[facility] Medical History & Physical Date of Admission February 15, 2021 Date of Service: February 15, 2021 Attending Physician: CLARIBEL DOWELL MD History and Physical CHIEF COMPLAINT: [35 y/o male with a cc of left arm pain, swelling, redness x4 days] HISTORY OF PRESENT ILLNESS: [This is a 35 y/o male with a pmh of depression/anxiety and polysubstance abuse who presents to the ED four days after beginning to experience redness, swelling and pain of the LUE. Patient states that the redness and pain have gotten progressively worse over the past four days. Patient states that he has been using iv essie in this arm and believes that this is the source of his infection. Patient states that he is still able to move and feel his arm but it is simply more painful. Patient admits to associated chills. Patient denies fever, abd pain, malaise, n/v/d, chest pain, sob. Patient found to be septic in the ed with +lactic acid, fever, tachycardia, leukocytosis, present source of infection. Patient also found to have transaminitis.] PAST MEDICAL HISTORY: 1. [See HPI PAST SURGICAL HISTORY: 1. [Reviewed - none SOCIAL HISTORY: Tobacco use:[One half ppd smoker] ETOH: [Denies] Illicit drug use: [IV essie] FAMILY HISTORY: Father: [[place]] ALLERGIES: Please see below. REVIEW OF SYSTEMS: CONSTITUTIONAL: [See HPI]. HEENT: [Denies uri sx]. CARDIOVASCULAR: [See HPI]. RESPIRATORY: [See HPI]. GASTROINTESTINAL: [See HPI]. GENITOURINARY: [Denies dysuria]. SKIN: [See HPI]. MUSCULOSKELETAL: [Admits to b/l knee pain with movement]. NEUROLOGICAL: [Denies paresthesias]. ENDOCRINE: [Denies hx of DM]. HEMATOLOGIC/LYMPHATIC: [Denies easy bruising]. HOME MEDICATIONS: Please see below. PHYSICAL EXAMINATION: VITAL SIGNS: Please see below. GENERAL APPEARANCE: [This is a diaphoretic appearing 35 year old male. He appears anxious and uncomfortable.]. HEENT: [No mass or lesion. EOMI. No scleral icterus. Nares patent. Poor dentation. Oral mucosa dry]. CARDIOVASCULAR: [Regular rate, rhythm. No murmurs, rubs, gallops]. LUNGS: [Good air flow auscultated. No wheezing, rales, rhonchi.]. ABDOMEN: [Soft, nontender]. MUSCULOSKELETAL: [Pain with knee rom. Negative justin's sign]. EXTREMITIES: [LUE grossly edematous with erythema from shoulder to wrist. Pulses palpable throughout. Lower extremities without edema or skin change. Pulses intact. No clubbing or cyanosis]. NEUROLOGICAL: [Sensation intact. Clear speech. A+Ox3. No focal deficits]. PSYCHIATRIC: [Labile mood, flat affect.]. LABORATORY DATA: See below. IMAGING: [Chest xray: FINDINGS: Lungs: There is decreased inflation of the lungs. No interval focal infiltrates. Pleural spaces: Unremarkable. No pleural effusion. No pneumothorax. Heart/Mediastinum: The heart and mediastinum are unchanged. Bones/joints: Unremarkable. IMPRESSION: Essentially stable poor inspiratory chest since 01/19/2021. LUE doppler: FINDINGS: Soft tissues: Scanning in an area of redness demonstrates no abscess or fluid collection. Vasculature: Incidental note is thrombus in the left cephalic vein above the mid forearm. IMPRESSION: 1. Scanning in the area of redness demonstrates no abscess or fluid collection. 2. Incidental note is thrombus in the left cephalic vein above the mid forearm] MICROBIOLOGY: Please see below. ASSESSMENT: [This is a 35 y/o male with a pmh of depression/anxiety and polysubstance abuse who presents to the ED four days after beginning to experience redness, swelling and pain of the LUE. Patient is IVDA and had been injection IV essie into this arm. Patient also incidentally found to have hyponatremia, transaminitis in the ED.]. . PLAN: 1. [LUE cellulitis and DVT - Patient meets sepsis criteria with fever, tachycardia, leukocytosis and present source of infection - Begin vancomycin IV q12h - Tylenol, toradol for pain and fever - Lovenox 40mg bid for dvt - Zofran for nausea - crp, cpk ordered - Day team can consider CT scan of extremity if cellulitis does not improve or i f suspicion of osteomyelitis arises - Admit to PCU for iv abx and pain control 2. Transaminitis - Etiology unclear - Hepatitis panel, liver US ordered - Will trend liver enzymes 3. Hyponatremia - Likely d/t dehydration - Patient received fluid bolus in ED 4. Hypertensive urgency - Resolved in ed - bp max 208/102 - Monitor bp DVT prophlyaxis - Patient on lovenox as stated]. Vital Signs Vital Signs Date Time Temp Pulse Resp B/P (MAP) Pulse Ox O2 Delivery O2 Flow Rate FiO2 02/15/21 05:30 77 17 149/78 (101) 92 Room Air 02/15/21 01:22 100.7 Laboratory Data Labs 24H Laboratory Tests 2 02/15/21 02:34: Immature Granulocyte % (Auto) , Neutrophils (%) (Auto) , Nucleated Red Blood Cells % (auto) 0.0, Neutrophils 77H, Band Neutrophils 2, Lymphocytes (Manual) 3L, Monocytes (Manual) 10H, Myelocytes 1H, Atypical Lymphocytes 7H, Ina Cells 1+, Toxic Vacuolation 1+, Platelet Estimate NORMAL, Clumped Platelets SMALL AMT, Anion Gap 12, Glomerular Filtration Rate > 60.0, Lactic Acid Level 3.9*H, Calcium Level 8.4L, Total Bilirubin 1.3H, Direct Bilirubin 0.8H, Aspartate Amino Transf (AST/SGOT) 148H, Alanine Aminotransferase (ALT/SGPT) 214H, Alkaline Phosphatase 98, Total Creatine Kinase 92, Creatine Kinase MB < 1.0, Creatine Kinase MB Relative Index 1.09, Troponin I < 0.02, C-Reactive Protein, Quantitative 25.70H, Total Protein 6.0L, Albumin 2.6L, Albumin/Globulin Ratio 0.8, Lipase 23L CBC/BMP Laboratory Tests 02/15/21 02:34 Microbiology Microbiology 02/15/21 Respiratory Virus Panel (PCR) ([facility]) - Final, Complete 02/15/21 Blood Culture, Received Pending 02/15/21 Blood Culture, Received Pending Home Medications Scheduled Methadone HCl (Methadone HCl) 10 Mg/1 Ml Oral.conc, 60 MG PO QAM Allergies Coded Allergies: No Known Allergies (Unverified , 07/01/20) A-FIB/CHADSVASC A-FIB History Current/History of A-Fib/PAF?: No Attending Note Attending Note time of service 422am Mr. Holloway is a 34-year-old with a history of PTSD, depression, bipolar disorder and polysubstance abuse who is admitted for LUE cellulitis and cephalic vein thrombosis in the setting of IVDU; he hjas been started on abx for cellulitis; if his arm pain is worse we will ask the day time team to consult ortho to check compartment pressures. For the superficial thrombophlebitis we will elevate his arm and give him NSAIDs rest per JOAN Nevarez's H&P ANA PAULA NEVAREZ February 15, 2021 05:50 CLARIBEL DOWELL MD February 15, 2021 07:02
[2021-02-15] MEDS ORDERED: VANCOMYCIN HCL 1,000 MG, VIAL MATE ADAPTER 1 EACH in NS 250 ML IV ONE ×2 (06:00→07:00)
[2021-02-15 06:25] VITALS: BP 137/89
[2021-02-15 07:17] LABS: INR 1.41; PROTHROMBIN TIME 17.6 SECONDS (12.5-14.3)
[2021-02-15 07:31] LABS: CPK CREATINE PHOSPHOKINASE 79 U/L (39-308)
[2021-02-15 07:58] VITALS: BP 142/75
[2021-02-15] MEDS: DOCUSATE SODIUM 100MG CAPSULE PO SCH ×2 (08:11→19:52)
[2021-02-15] MEDS: ENOXAPARIN 40MG/0.4ML SYRINGE (J1650 PER 10MG) SC SCH (09:39)
[2021-02-15 10:42] LABS: HEPATITIS B SURFACE ANTIGEN NEGATIVE (NEGATIVE)
[2021-02-15 11:00] LABS: HEPATITIS B CORE ANTIBODY IGM NEGATIVE (NEGATIVE)
[2021-02-15 11:02] LABS: HEPATITIS A ANTIBODY IGM NEGATIVE (NEGATIVE)
[2021-02-15 11:10] LABS: HEPATITIS C VIRUS ABY INDEX > 11.0 INDEX (<0.8)
[2021-02-15 12:00] VITALS: BP 152/91
[2021-02-15] MEDS ORDERED: METHADONE 10 MG TAB (S0109) PO ONE (12:05)
[2021-02-15] MEDS: KETOROLAC 30 MG/ML 1ML VIAL IV PRN ×2 (13:18→19:51)
--- NOTE | 2021-02-15 13:33 | ECGEPIP ---
[facility] - ED Test Date: 2021-02-15 Pat Name: DOMO FREEMAN Department: Room: [place] [address] Gender: Male Piercer: : 1985 Requested By: JUAN PABLO PETERSON Order Number: [id number] Reading MD: Rosi Muñoz Measurements Intervals [place] Rate: 86 P: 43 ID: [id number] QRS: -25 QRSD: 102 T: 4 QT: 412 QTc: 493 Interpretive Statements Normal sinus rhythm Possible Left atrial enlargement Minimal voltage criteria for LVH, may be normal variant ( R in aVL ) Prolonged QT, clinical correlation NSTTW abnormalities compared 01/19/21, clinical correlation Electronically Signed on 02-15-2021 13:33:43 EDT by Rosi Muñoz
[2021-02-15] MEDS ORDERED: LORazepam 2 MG TAB PO PRN (15:25)
[2021-02-15 15:44] VITALS: BP 121/67
[2021-02-15] MEDS: VANCOMYCIN HCL 500 MG in D5W MINI-BAG PLUS 100 ML IV SCH (15:44)
[2021-02-15] MEDS: THIAMINE 100 MG TAB PO SCH (15:44)
[2021-02-15] MEDS: VANCOMYCIN HCL 750 MG, VIAL MATE ADAPTER 1 EACH in NS 250 ML IV SCH (16:52)
--- NOTE | 2021-02-15 19:08 | IPNPDOC ---
Text Note Date of Service The patient was seen on 02/15/21. NOTE Hospitalist Progress Note Subjective: The patient reports significant improvement in the swelling, redness, and pain of his left upper extremity. He was concerned about getting his methadone dose today, we did call over to [facility] and confirm his dose, therefore this has been restarted today. Nevertheless, throughout the day he did seem to be still suffering from withdrawal symptoms, I suspect that this may be ecstasy withdrawal, since this was the drug that he had been injecting. Objective: General: Awake, alert, oriented 3. Not in acute distress. HEENT: Head normocephalic, atraumatic, sclera are nonicteric. Hearing is grossly intact to conversation. Respiratory: Clear to auscultation bilaterally with no wheezes, rales, or rho nchi. Cardiovascular: Regular rate and rhythm, with no rubs, gallops, or murmur. Abdomen: Soft, nontender, nondistended, no hepatosplenomegaly appreciated. Bowel sounds present. Extremities: 2+ pulses in the radial and dorsalis pedis bilaterally. No evidence of clubbing or cyanosis. Left upper extremity is erythematous and edematous from approximately the mid forearm up to the shoulder, this is the first time that I have seen it, but the patient indicates that it is significantly improved from when he arrived earlier. He does have full sensation in his fingers, and he is able to move the entire left upper extremity without significant pain, therefore concern for septic arthritis and compartment syndrome are low at this time. Assessment/Plan: Left upper extremity cellulitis Gram-positive bacteremia Sepsis -Continue IV vancomycin -Preliminary Gram stain from the blood cultures does show gram-positive cocci in chains Withdrawal, likely from ecstasy -Benzodiazepines, particularly lorazepam is the recommended drug for treating ecstasy withdrawal, therefore I will start him on CIWA protocol, and we will treat using that. History of IV drug use - On methadone 60 mg daily, dose was confirmed with [facility] - Resume home dose of methadone. Transaminitis Hepatitis C infection -Hepatitis panel revealed that he was positive for hepatitis C, apparently the patient was aware of this previously, but he has never sought treatment. Will need to have him follow up with infectious disease upon discharge. Hyponatremia -Continue IV fluids Hypertensive urgency -Resolved Left cephalic vein thrombus -This is considered a superficial thrombus, and does not require treatment for DVT -Recommend NSAIDs and warm compress if he develops superficial thrombophlebitis DVT prophylaxis -Lovenox VS,Fishbone, I+O VS, Fishbone, I+O Laboratory Tests 02/15/21 02:34 Vital Signs Date Time Temp Pulse Resp B/P (MAP) Pulse Ox O2 Delivery O2 Flow Rate FiO2 02/15/21 15:44 97.2 81 20 121/67 (85) 91 Room Air I&O- Last 24 Hours up to 6 AM 02/15/21 06:00 Intake Total 700 ml Balance 700 ml YAHIR NUR DO February 15, 2021 19:08
[2021-02-15] MEDS: NS 1,000 ML IV SCH (19:51)
[2021-02-15] MEDS: ACETAMINOPHEN TAB 650MG DOSE (2X325MG) PO PRN (19:52)
[2021-02-15 20:00] VITALS: BP 143/88
[2021-02-16] VITALS: BP 127/82
[2021-02-16] MEDS: VANCOMYCIN HCL 500 MG in D5W MINI-BAG PLUS 100 ML IV SCH ×2 (00:29→08:28)
[2021-02-16] MEDS: VANCOMYCIN HCL 750 MG, VIAL MATE ADAPTER 1 EACH in NS 250 ML IV SCH ×2 (01:44→08:47)
[2021-02-16 04:00] VITALS: BP 147/85
[2021-02-16] MEDS: ACETAMINOPHEN TAB 650MG DOSE (2X325MG) PO PRN (04:57)
[2021-02-16] MEDS: NS 1,000 ML IV SCH (04:57)
--- NOTE | 2021-02-16 06:14 | REPVR ---
PROCEDURE INFORMATION: Exam: US Abdomen, Limited; Right Upper Quadrant Exam date and time: 02/16/2021 4:53 AM Age: 35 years old Clinical indication: Abnormal findings; Abnormal lab test; Elevated liver enzymes; Additional info: Transaminitis TECHNIQUE: Imaging protocol: US abdomen. Real time ultrasound with image documentation. Limited exam focused on the right upper quadrant. COMPARISON: ABD COMPLETE US 11/30/2019 9:48 PM FINDINGS: Liver: The liver is enlarged measuring up to 18.9 centimetres. There is no focal hepatic mass. Gallbladder: Gallbladder sludge is seen. There is no gallbladder wall thickening or pericholecystic fluid. Common bile duct: The CBD is normal in caliber measuring 5-6 mm in diameter. Pancreas: The pancreatic head and body are unremarkable. The tail of the pancreas is obscured by bowel gas. Right kidney: The right kidney measures 13.0 x 7.4 x 5.9 cm with a cortical thickness of 1.7 centimetres. There is no right renal mass, stone, cyst or hydronephrosis. IMPRESSION: 1. Gallbladder sludge with no sonographic evidence of cholecystitis. 2. Mild hepatomegaly. Electronically signed by: Naresh Gagnon On 02/16/2021 06:14:26 AM
[2021-02-16] MEDS ORDERED: ANALGESIC BALM CRM 120 GM TOP PRN (07:00)
[2021-02-16 07:09] VITALS: BP 147/83
[2021-02-16 07:52] LABS: HEMATOCRIT 37.3 % (42.0-52.0); HEMOGLOBIN 12.6 g/dl (13.5-17.5); MEAN CORPUSCULAR HEMOGLOBIN 30.5 pg (27.0-33.0); MEAN CORPUSCULAR HGB CONC 33.8 g/dl (32.0-36.5); MEAN CORPUSCULAR VOLUME 90.3 fl (80.0-96.0); PLATELET COUNT, AUTOMATED 109 10^3/uL (150-450); RED BLOOD COUNT 4.13 10^6/uL (4.30-6.10)
[2021-02-16 08:16] LABS: ALBUMIN 2.2 GM/DL (3.2-5.2); ALT/SGPT 139 U/L (12-78); BILIRUBIN,TOTAL 1.2 MG/DL (0.2-1.0); BLOOD UREA NITROGEN 16 MG/DL (7-18); CALCIUM LEVEL 7.6 MG/DL (8.5-10.1); CARBON DIOXIDE LEVEL 25 MEQ/L (21-32); CHLORIDE LEVEL 101 MEQ/L (98-107); CREATININE FOR GFR 0.82 MG/DL (0.70-1.30); GLOMERULAR FILTRATION RATE > 60.0 (>60); GLUCOSE, FASTING 126 MG/DL (70-100); MAGNESIUM LEVEL 1.9 MG/DL (1.8-2.4); POTASSIUM SERUM 3.6 MEQ/L (3.5-5.1); SODIUM LEVEL 134 MEQ/L (136-145); TOTAL PROTEIN 5.3 GM/DL (6.4-8.2); VANCOMYCIN LEVEL TROUGH 8.7 UG/ML (10.0-20.0)
[2021-02-16] MEDS: FOLIC ACID 1 MG TAB PO SCH (08:28)
[2021-02-16] MEDS: DOCUSATE SODIUM 100MG CAPSULE PO SCH ×2 (08:28→20:33)
[2021-02-16] MEDS: MULTIVITAMINS/MINERALS THERAP 1 TAB PO SCH (08:28)
[2021-02-16] MEDS: ENOXAPARIN 40MG/0.4ML SYRINGE (J1650 PER 10MG) SC SCH (08:28)
[2021-02-16] MEDS: THIAMINE 100 MG TAB PO SCH ×2 (08:28→20:33)
[2021-02-16] MEDS: KETOROLAC 30 MG/ML 1ML VIAL IV PRN ×2 (08:30→16:19)
[2021-02-16] MEDS: METHADONE 10 MG TAB (S0109) PO SCH (08:47)
[2021-02-16] MEDS: PIPERACILLIN/TAZOBACTAM SOD 3.375 GM in D5W MINI-BAG PLUS 50 ML IV SCH ×3 (14:33→23:03)
[2021-02-16] MEDS: VANCOMYCIN HCL 1,000 MG, VIAL MATE ADAPTER 1 EACH in NS 250 ML IV SCH ×2 (14:34→16:19)
[2021-02-16] MEDS ORDERED: LIDOCAINE 1% MDV 20ML VIAL As Ordered ONE (14:39)
[2021-02-16 15:49] VITALS: BP 192/94
[2021-02-16 16:37] VITALS: BP 180/91
--- NOTE | 2021-02-16 16:52 | IPNPDOC ---
Subjective Date Seen The patient was seen on 02/16/21. Subjective Chief Complaint/HPI Difficulty in moving the Left arm with pain and redness and swelling. No fever or chills Objective Physical Examination General Exam: Positive: Alert, Cooperative, No Acute Distress Eye Exam: Positive: PERRLA, Conjunctiva & lids normal, EOMI; Negative: Sclera icteric Neck Exam: Positive: Supple; Negative: JVD, thyromegaly Chest Exam: Positive: Clear to auscultation, Normal air movement Heart Exam: Positive: Rate Normal, Regular Rhythm, Normal S1, Normal S2; Negative: Murmurs, Rubs Abdomen Exam: Positive: Normal bowel sounds, Soft; Negative: Tenderness, Hepatospenomegaly Extremity Exam: Positive: Other (Left upper extremity redness, swollen and tender at spots. ); Negative: Clubbing, Cyanosis, Edema Neuro Exam: Positive: Normal Speech, Strength at 5/5 X4 ext Assessment /Plan Assessment This is a 35 y/o male with a pmh of Bipolar , hep c and polysubstance abuse who presented to the ED four days after beginning to experience redness, swelling and pain of the LUE. Patient stated that he has been using iv essie in that arm and believes that this is the source of his infection. Left upper extremity cellulitis/ Gram-positive bacteremia Sepsis from IV drug use. on IV vancomycin adn zosyn. Preliminary Gram stain from the blood cultures does show gram-positive cocci in chains: streptococcus pyogenes. Withdrawal, likely from ecstasy now resolved. H/o IV Opiate drug use On methadone 60 mg daily, dose was confirmed with [facility] Resume home dose of methadone. Transaminitis/Hepatitis C Hepatitis panel revealed that he was positive for hepatitis C, apparently the patient was aware of this previously, but he has never sought treatment. Will need to have him follow up with infectious disease upon discharge. Hyponatremia could be due to ecstasy. will stop IVF. diet. Hypertensive urgency Resolved Left cephalic vein thrombus This is considered a superficial thrombus, and does not require treatment for DVT Recommend NSAIDs and warm compress if he develops superficial thrombophlebitis Bipolar disorder/PTSD/Depression not on meds. Plan/VTE VTE Prophylaxis Ordered?: Yes VS, I&O, 24H, Fishbone Vital Signs/I&O Vital Signs Date Time Temp Pulse Resp B/P (MAP) Pulse Ox O2 Delivery O2 Flow Rate FiO2 02/16/21 04:00 99.5 111 26 147/85 (105) 91 Room Air I&O- Last 24 Hours up to 6 AM 02/16/21 06:00 Intake Total 5355 ml Output Total 1300 ml Balance 4055 ml Laboratory Data 24H LABS Laboratory Tests 2 02/15/21 07:40: Lactic Acid Followup at 4 Hours 1.9 Microbiology Microbiology 02/15/21 Respiratory Virus Panel (PCR) ([facility]) - Final, Complete 02/15/21 Blood Culture - Preliminary, Resulted 02/15/21 Blood Culture - Preliminary, Resulted TRACE AMBROSE MD February 16, 2021 07:11
--- NOTE | 2021-02-16 17:01 | REP ---
INDICATION: Patient requires IV ABX - unable to obtain peripheral access. COMPARISON: None. TECHNIQUE: The procedure was performed under the direct supervision of Dr. Mera. The risks and benefits of the procedure were explained to the patient and informed consent was obtained. The right basilic vein was localized using ultrasound guidance. The skin was prepped and draped in a sterile fashion. 2% lidocaine was used as a local anesthetic. Using ultrasound guidance the basilic vein was cannulated and a 0.018 guidewire was inserted and advanced to the SVC using fluoroscopic guidance, and last image hold technology. The needle was removed and a 5.5 [place]z dilator and peel-away sheath was inserted over the guide wire. A 5.5 [place] dual lumen catheter was cut to length of 45 cm. The dilator was removed and the catheter was inserted over the guide wire with the tip ending in the SVC. The peel-away sheath was removed and the catheter was flushed with heparinized saline as per Hospital protocol. The catheter was affixed to the skin and a sterile dressing was applied. The patient tolerated the procedure well and there were no immediate complications. 0.1 minutes of fluoro time was utilized for this procedure. FINDINGS: None IMPRESSION: PICC line insertion right basilic vein with the tip ending in the SVC. <Electronically signed by Hardeep Fierro > 02/16/21 [id number] <Electronically signed by Oneal Mera > 02/16/21 [id number]
[2021-02-16] MEDS: SODIUM CHLORIDE 0.9% INJ 10 ML SYR IV SCH (17:18)
[2021-02-16 20:00] VITALS: BP 153/93
[2021-02-17] MEDS: VANCOMYCIN HCL 1,000 MG, VIAL MATE ADAPTER 1 EACH in NS 250 ML IV SCH ×2 (00:34→06:22)
[2021-02-17] MEDS: KETOROLAC 30 MG/ML 1ML VIAL IV PRN ×3 (01:13→21:44)
[2021-02-17 04:00] VITALS: BP 160/90
[2021-02-17] MEDS: PIPERACILLIN/TAZOBACTAM SOD 3.375 GM in D5W MINI-BAG PLUS 50 ML IV SCH ×4 (05:03→23:03)
[2021-02-17 05:41] LABS: HEMATOCRIT 35.8 % (42.0-52.0); HEMOGLOBIN 12.1 g/dl (13.5-17.5); MEAN CORPUSCULAR HEMOGLOBIN 30.3 pg (27.0-33.0); MEAN CORPUSCULAR HGB CONC 33.8 g/dl (32.0-36.5); MEAN CORPUSCULAR VOLUME 89.7 fl (80.0-96.0); PLATELET COUNT, AUTOMATED 130 10^3/uL (150-450); RED BLOOD COUNT 3.99 10^6/uL (4.30-6.10); WHITE BLOOD COUNT 19.4 10^3/uL (4.0-10.0)
[2021-02-17] MEDS: SODIUM CHLORIDE 0.9% INJ 10 ML SYR IV SCH ×2 (06:00→18:33)
[2021-02-17 06:09] LABS: ALBUMIN 2.4 GM/DL (3.2-5.2); ALT/SGPT 136 U/L (12-78); BILIRUBIN,TOTAL 1.4 MG/DL (0.2-1.0); BLOOD UREA NITROGEN 14 MG/DL (7-18); CALCIUM LEVEL 7.4 MG/DL (8.5-10.1); CARBON DIOXIDE LEVEL 27 MEQ/L (21-32); CHLORIDE LEVEL 98 MEQ/L (98-107); CREATININE FOR GFR 0.69 MG/DL (0.70-1.30); GLOMERULAR FILTRATION RATE > 60.0 (>60); GLUCOSE, FASTING 83 MG/DL (70-100); MAGNESIUM LEVEL 1.6 MG/DL (1.8-2.4); POTASSIUM SERUM 3.8 MEQ/L (3.5-5.1); SODIUM LEVEL 133 MEQ/L (136-145); TOTAL PROTEIN 5.8 GM/DL (6.4-8.2)
[2021-02-17 07:57] VITALS: BP 162/90
[2021-02-17] MEDS: MAGNESIUM OXIDE 400MG TAB (MAG-OX) PO SCH ×3 (09:16→20:32)
[2021-02-17] MEDS: MULTIVITAMINS/MINERALS THERAP 1 TAB PO SCH (09:16)
[2021-02-17] MEDS: METHADONE 10 MG TAB (S0109) PO SCH (09:16)
[2021-02-17] MEDS: DOCUSATE SODIUM 100MG CAPSULE PO SCH ×2 (09:16→20:32)
[2021-02-17] MEDS: FOLIC ACID 1 MG TAB PO SCH (09:16)
[2021-02-17] MEDS: ENOXAPARIN 40MG/0.4ML SYRINGE (J1650 PER 10MG) SC SCH (09:17)
[2021-02-17] MEDS: THIAMINE 100 MG TAB PO SCH ×2 (09:20→20:32)
--- NOTE | 2021-02-17 10:23 | IPNPDOC ---
Subjective Date Seen The patient was seen on 02/17/21. Subjective Chief Complaint/HPI Left arm looks about the same. tender, red and warm and areas that are very firm. Will Get CT of the upper extremity. Objective Physical Examination General Exam: Positive: Alert, Cooperative, No Acute Distress Eye Exam: Positive: PERRLA, Conjunctiva & lids normal, EOMI; Negative: Sclera icteric Neck Exam: Positive: Supple; Negative: JVD, thyromegaly Chest Exam: Positive: Clear to auscultation, Normal air movement Heart Exam: Positive: Rate Normal, Regular Rhythm, Normal S1, Normal S2; Negative: Murmurs, Rubs Abdomen Exam: Positive: Normal bowel sounds, Soft; Negative: Tenderness, Hepatospenomegaly Extremity Exam: Positive: Other (Left upper extremity redness, swollen and tender at spots. ); Negative: Clubbing, Cyanosis, Edema Neuro Exam: Positive: Normal Speech, Strength at 5/5 X4 ext Assessment /Plan Assessment This is a 35 y/o male with a pmh of Bipolar , hep c and polysubstance abuse who presented to the ED four days after beginning to experience redness, swelling and pain of the LUE. Patient stated that he has been using iv essie in that arm and believes that this is the source of his infection. Left upper extremity cellulitis/ Gram-positive bacteremia Sepsis from IV drug use. on IV vancomycin and zosyn. Preliminary Gram stain from the blood cultures streptococcus pyogenes. Will deescalate antibiotics after today's blood culture. Withdrawal, likely from ecstasy now resolved. H/o IV Opiate use On methadone 60 mg daily, dose was confirmed with [facility] Resume home dose of methadone. Transaminitis/Hepatitis C Hepatitis panel revealed that he was positive for hepatitis C, apparently the patient was aware of this previously, but he has never sought treatment. Will need to have him follow up with infectious disease upon discharge. Hyponatremia resolved Hypertensive urgency Resolved Left cephalic vein thrombus This is considered a superficial thrombus, and does not require treatment for DVT Recommend NSAIDs and warm compress if he develops superficial thrombophlebitis Bipolar disorder/PTSD/Depression not on meds. Plan/VTE VTE Prophylaxis Ordered?: Yes VS, I&O, 24H, Fishbone Vital Signs/I&O Vital Signs Date Time Temp Pulse Resp B/P (MAP) Pulse Ox O2 Delivery O2 Flow Rate FiO2 02/17/21 07:57 98.8 85 22 162/90 (114) 90 Room Air I&O- Last 24 Hours up to 6 AM 02/17/21 06:00 Intake Total 2035 ml Output Total 1875 ml Balance 160 ml Laboratory Data 24H LABS Laboratory Tests 2 02/17/21 04:46: Nucleated Red Blood Cells % (auto) 0.0, Anion Gap 8, Glomerular Filtration Rate > 60.0, Calcium Level 7.4L, Magnesium Level 1.6L, Total Bilirubin 1.4H, Aspartate Amino Transf (AST/SGOT) 104H, Alanine Aminotransferase (ALT/SGPT) 136H, Alkaline Phosphatase 221H, Total Protein 5.8L, Albumin 2.4L, Albumin/Globulin Ratio 0.7 CBC/BMP Laboratory Tests 02/17/21 04:46 Microbiology Microbiology 02/17/21 Blood Culture, Received Pending 02/15/21 Respiratory Virus Panel (PCR) ([facility]) - Final, Complete 02/15/21 Blood Culture - Final, Complete Streptococcus Pyogenes Grp A 02/15/21 Blood Culture - Final, Complete Streptococcus Pyogenes Grp A TRACE AMBROSE MD February 17, 2021 10:23
[2021-02-17 16:00] VITALS: BP 161/81
[2021-02-17 20:00] VITALS: BP 175/92
[2021-02-17 23:00] VITALS: BP 172/91
[2021-02-18] MEDS: PIPERACILLIN/TAZOBACTAM SOD 3.375 GM in D5W MINI-BAG PLUS 50 ML IV SCH ×2 (05:08→11:45)
[2021-02-18] MEDS: SODIUM CHLORIDE 0.9% INJ 10 ML SYR IV SCH ×2 (05:08→18:00)
[2021-02-18 05:44] LABS: HEMATOCRIT 35.3 % (42.0-52.0); HEMOGLOBIN 11.6 g/dl (13.5-17.5); MEAN CORPUSCULAR HEMOGLOBIN 30.1 pg (27.0-33.0); MEAN CORPUSCULAR HGB CONC 32.9 g/dl (32.0-36.5); MEAN CORPUSCULAR VOLUME 91.5 fl (80.0-96.0); PLATELET COUNT, AUTOMATED 170 10^3/uL (150-450); RED BLOOD COUNT 3.86 10^6/uL (4.30-6.10); WHITE BLOOD COUNT 19.8 10^3/uL (4.0-10.0)
[2021-02-18 06:00] VITALS: BP 162/91
[2021-02-18 06:13] LABS: ALBUMIN 2.2 GM/DL (3.2-5.2); ALT/SGPT 165 U/L (12-78); BLOOD UREA NITROGEN 12 MG/DL (7-18); CALCIUM LEVEL 8.1 MG/DL (8.5-10.1); CARBON DIOXIDE LEVEL 31 MEQ/L (21-32); CHLORIDE LEVEL 98 MEQ/L (98-107); CREATININE FOR GFR 0.63 MG/DL (0.70-1.30); GLOMERULAR FILTRATION RATE > 60.0 (>60); GLUCOSE, FASTING 97 MG/DL (70-100); MAGNESIUM LEVEL 2.1 MG/DL (1.8-2.4); POTASSIUM SERUM 4.2 MEQ/L (3.5-5.1); SODIUM LEVEL 134 MEQ/L (136-145); TOTAL PROTEIN 6.1 GM/DL (6.4-8.2)
[2021-02-18] MEDS: FOLIC ACID 1 MG TAB PO SCH (09:25)
[2021-02-18] MEDS: ENOXAPARIN 40MG/0.4ML SYRINGE (J1650 PER 10MG) SC SCH (09:25)
[2021-02-18] MEDS: DOCUSATE SODIUM 100MG CAPSULE PO SCH ×2 (09:25→20:44)
[2021-02-18] MEDS: MAGNESIUM OXIDE 400MG TAB (MAG-OX) PO SCH ×3 (09:25→20:44)
[2021-02-18] MEDS: METHADONE 10 MG TAB (S0109) PO SCH (09:25)
[2021-02-18] MEDS: KETOROLAC 30 MG/ML 1ML VIAL IV PRN ×3 (09:31→23:30)
--- NOTE | 2021-02-18 10:30 | REP ---
INDICATION: left upper extremity forearm, humerus ? abscess/ nec fasc. COMPARISON: Ultrasound 02/15/2021. TECHNIQUE: Axial CT left humerus performed with sagittal and coronal reconstruction images. Evaluation for fluid collection is limited without the use of intravenous contrast. FINDINGS: Left humerus demonstrates no fracture or bone lesion. There is no cortical destruction or periosteal reaction. There is diffuse ill-defined edema in the soft tissues. No definite focal fluid collection is seen. No soft tissue air is seen. Left axillary lymph nodes are not significantly enlarged. There is a mild to moderate left pleural effusion present. Diffuse interstitial infiltrates are seen in the visualized left lung with some mild patchy alveolar opacities in the left lower lobe. IMPRESSION: No osseous abnormality. Diffuse edema in the distal upper arm. This may indicate cellulitis. No definite focal fluid collection, evaluation for fluid collection is limited without the use of intravenous contrast. There is no soft tissue air. There is a mild to moderate left pleural effusion with diffuse left lung interstitial infiltrates and mild patchy atelectasis or alveolar infiltrate in the left lower lobe. <Electronically signed by Oneal Mera > 02/18/21 1021
--- NOTE | 2021-02-18 10:35 | REP ---
INDICATION: left upper extremity forearm,? abscess/ nec fasc. COMPARISON: None. TECHNIQUE: Axial CT left forearm with sagittal and coronal reconstruction images. Evaluation for soft tissue fluid collection is limited without the use of intravenous contrast. FINDINGS: The radius and ulna demonstrate no fracture or dislocation. No bone lesion is seen. There is no cortical destruction or periosteal reaction. The soft tissues demonstrate diffuse edematous change and suspected cellulitis. No definite focal fluid collection is seen. No air is seen in the soft tissues. IMPRESSION: Diffuse soft tissue edema and suspected cellulitis. No definite focal fluid collection in the soft tissues. No soft tissue air seen. <Electronically signed by Oneal Mera > 02/18/21 [id number]
[2021-02-18 14:00] VITALS: BP 138/70
--- NOTE | 2021-02-18 14:09 | IPNPDOC ---
Subjective Date Seen The patient was seen on 02/18/21. Subjective Chief Complaint/HPI No complaints this morning. Noted walking inthe corridor. His PICC line came out will need a new one. Had a temp 101.1 last night Objective Physical Examination General Exam: Positive: Alert, Cooperative, No Acute Distress Eye Exam: Positive: PERRLA, Conjunctiva & lids normal, EOMI; Negative: Sclera icteric Neck Exam: Positive: Supple; Negative: JVD, thyromegaly Chest Exam: Positive: Clear to auscultation, Normal air movement Heart Exam: Positive: Rate Normal, Regular Rhythm, Normal S1, Normal S2; Negative: Murmurs, Rubs Abdomen Exam: Positive: Normal bowel sounds, Soft; Negative: Tenderness, Hepatospenomegaly Extremity Exam: Positive: Other (Left upper extremity redness, swollen and tender at spots. ); Negative: Clubbing, Cyanosis, Edema Neuro Exam: Positive: Normal Speech, Strength at 5/5 X4 ext Assessment /Plan Assessment This is a 35 y/o male with a pmh of Bipolar , hep c and polysubstance abuse who presented to the ED four days after beginning to experience redness, swelling and pain of the LUE. Patient stated that he has been using iv essie in that arm and believes that this is the source of his infection. Left upper extremity cellulitis/ Gram-positive bacteremia Sepsis from IV drug use. on IV vancomycin and zosyn. Preliminary Gram stain from the blood cultures streptococcus pyogenes. CT of the extremity showed only cellulitis, no edema no gas no necrosis. ID consulted. Possible left pneumonia with efussion will get CT chest. contiue Zosyn. Withdrawal, likely from ecstasy now resolved. H/o IV Opiate use On methadone 60 mg daily, dose was confirmed with [facility] Resume home dose of methadone. Transaminitis/Hepatitis C Hepatitis panel revealed that he was positive for hepatitis C, apparently the patient was aware of this previously, but he has never sought treatment. Will need to have him follow up with infectious disease upon discharge. Hyponatremia resolved Hypertensive urgency Resolved Left cephalic vein thrombus This is considered a superficial thrombus, and does not require treatment for DVT Recommend NSAIDs and warm compress if he develops superficial thrombophlebitis Bipolar disorder/PTSD/Depression not on meds. Plan/VTE VTE Prophylaxis Ordered?: Yes VS, I&O, 24H, [place] Vital Signs/I&O Vital Signs Date Time Temp Pulse Resp B/P (MAP) Pulse Ox O2 Delivery O2 Flow Rate FiO2 02/18/21 14:00 97.9 100 17 138/70 (92) 98 Room Air I&O- Last 24 Hours up to 6 AM 02/18/21 06:00 Intake Total 2665 ml Output Total 0 ml Balance 2665 ml Laboratory Data 24H LABS Laboratory Tests 2 02/18/21 05:16: Nucleated Red Blood Cells % (auto) 0.0, Anion Gap 5L, Glomerular Filtration Rate > 60.0, Calcium Level 8.1L, Magnesium Level 2.1, Total Bilirubin 2.0H, Aspartate Amino Transf (AST/SGOT) 124H, Alanine Aminotransferase (ALT/SGPT) 165H, Alkaline Phosphatase 246H, Total Protein 6.1L, Albumin 2.2L, Albumin/Globulin Ratio 0.6 CBC/BMP Laboratory Tests 02/18/21 05:16 Microbiology Microbiology 02/17/21 Blood Culture - Preliminary, Resulted No growth after 24 hours . All specim... 02/15/21 Respiratory Virus Panel (PCR) ([facility]) - Final, Complete 02/15/21 Blood Culture - Final, Complete Streptococcus Pyogenes Grp A 02/15/21 Blood Culture - Final, Complete Streptococcus Pyogenes Grp A TRACE AMBROSE MD February 18, 2021 14:09
--- NOTE | 2021-02-18 14:53 | REP ---
INDICATION: Left infiltrates and efussion seen in extremity CT.. COMPARISON: Comparison CT study of the chest is from November 30, 2019. Comparison left humerus CT study February 18, 2021 comparison chest x-ray is from 15 Feb 2021.. TECHNIQUE: Helical scanning is acquired. 3 mm axial images are generated. Coronal and sagittal MPR and coronal MIP images are generated. FINDINGS: Digital preliminary cocoa bean roaster radiograph demonstrates blunting of the left lateral pleural angle. Axial CT images confirm the presence of a small left pleural effusion layering posteriorly in the left hemithorax. There is some multifocal visceral and parietal pleural thickening in the left pleural fluid collection and areas of discoid atelectasis are present in the left base adjacent to this. There is minimal platelike atelectasis on the right. No free pleural effusion is noted on the right but there are areas of pleural thickening particularly anterolaterally in the upper portion of the right hemithorax. On axial CT slice 19 of 104 in series 201 of today's study there are 2 or 3 air bubbles in this area of pleural thickening. This raises the question of prior instrumentation, trauma, or infection. No rib fracture or bony destructive lesion is seen. there is similar focal pleural thickening at the left apex posteriorly. There is mild fissural thickening in the major fissure bilaterally. No lung mass lesion is observed. Areas of subpleural fibrosis are noted in the right upper lobe adjacent to the areas of pleural thickening. I note that the comparison CT study from November of 2019 showed extensive bilateral multifocal pneumonia. The pleural changes however are new when compared with the prior study and the pneumonia has resolved. There is a mildly enlarged right pretracheal lymph node measuring 1.2 x 1.5 cm. This is new. In addition there is mild left axillary lymphadenopathy visible on today's CT study which is also new. The spleenrrrrrrrrrrr is noted to be enlarged measuring 15 cm in greatest diameter. the spleen is larger than it was previously. No focal hepatic lesion is seen. Adrenal glands are unchanged. IMPRESSION: Small left pleural effusion with areas of visceral and parietal pleural thickening. There are multifocal areas of pleural thickening in the right upper chest as well anterolaterally question previous instrumentation. Mild left axillary lymphadenopathy. One enlarged mediastinal lymph node. New splenomegaly. Question lymphoproliferative disease. <Electronically signed by Van Mae > 02/18/21 [id number]
[2021-02-18] MEDS ORDERED: LIDOCAINE 1% MDV 20ML VIAL As Ordered ONE (15:53)
[2021-02-18] MEDS ORDERED: OXAZEPAM 10 MG CAP PO ONE (16:00)
[2021-02-18] MEDS: cefTRIAXone SOD 2 GM in D5W MINI-BAG PLUS 50 ML IV SCH (17:40)
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
[2021-02-18 20:00] VITALS: BP 178/80
[2021-02-18 20:00] LABS: HIV 1&2 SCREEN CENTAUR NEGATIVE (NEGATIVE)
[2021-02-19] MEDS: KETOROLAC 30 MG/ML 1ML VIAL IV PRN ×3 (05:14→20:43)
[2021-02-19] MEDS: SODIUM CHLORIDE 0.9% INJ 10 ML SYR IV SCH ×2 (05:14→17:18)
[2021-02-19 05:44] LABS: HEMATOCRIT 34.1 % (42.0-52.0); HEMOGLOBIN 11.5 g/dl (13.5-17.5); MEAN CORPUSCULAR HEMOGLOBIN 30.9 pg (27.0-33.0); MEAN CORPUSCULAR HGB CONC 33.7 g/dl (32.0-36.5); MEAN CORPUSCULAR VOLUME 91.7 fl (80.0-96.0); PLATELET COUNT, AUTOMATED 238 10^3/uL (150-450); RED BLOOD COUNT 3.72 10^6/uL (4.30-6.10); WHITE BLOOD COUNT 20.8 10^3/uL (4.0-10.0)
[2021-02-19 05:51] VITALS: BP 178/90
[2021-02-19 06:02] LABS: ALBUMIN 2.1 GM/DL (3.2-5.2); ALT/SGPT 297 U/L (12-78); BLOOD UREA NITROGEN 14 MG/DL (7-18); CALCIUM LEVEL 8.2 MG/DL (8.5-10.1); CARBON DIOXIDE LEVEL 30 MEQ/L (21-32); CHLORIDE LEVEL 98 MEQ/L (98-107); CREATININE FOR GFR 0.57 MG/DL (0.70-1.30); GLOMERULAR FILTRATION RATE > 60.0 (>60); GLUCOSE, FASTING 90 MG/DL (70-100); MAGNESIUM LEVEL 2.1 MG/DL (1.8-2.4); POTASSIUM SERUM 4.8 MEQ/L (3.5-5.1); SODIUM LEVEL 132 MEQ/L (136-145); TOTAL PROTEIN 6.4 GM/DL (6.4-8.2)
[2021-02-19] MEDS ORDERED: FUROSEMIDE 40MG/4ML VIAL (J1940) IV ONE (07:20)
--- NOTE | 2021-02-19 08:14 | IPNPDOC ---
Subjective Date Seen The patient was seen on 02/19/21. Subjective Chief Complaint/HPI upset irritable, constantly walking cant settle down asking to be restarted on his mental health meds . He has been of that for 6 -8 months [facility]. [facility]. No fever or chills. says arm feels OK. Reports having SOB. Objective Physical Examination General Exam: Positive: Alert, Cooperative, No Acute Distress Eye Exam: Positive: PERRLA, Conjunctiva & lids normal, EOMI; Negative: Sclera icteric Neck Exam: Positive: Supple; Negative: JVD, thyromegaly Chest Exam: Positive: Clear to auscultation, Normal air movement Heart Exam: Positive: Rate Normal, Regular Rhythm, Normal S1, Normal S2; Negative: Murmurs, Rubs Abdomen Exam: Positive: Normal bowel sounds, Soft; Negative: Tenderness, Hepatospenomegaly Extremity Exam: Positive: Other (Left upper extremity redness, swollen and tender at spots. ); Negative: Clubbing, Cyanosis, Edema Neuro Exam: Positive: Normal Speech, Strength at 5/5 X4 ext Assessment /Plan Assessment This is a 35 y/o male with a pmh of Bipolar , hep c and polysubstance abuse who presented to the ED four days after beginning to experience redness, swelling and pain of the LUE. Patient stated that he has been using iv essie in that arm and believes that this is the source of his infection. Left upper extremity cellulitis/ Gram-positive bacteremia from IV drug use. blood cultures streptococcus pyogenes. CT of the extremity showed only cellulitis, no edema no gas no necrosis. ID consulted. Antibiotics changed to Ceftriaxone daily Abnormal CT chest / infection enlarged paratracheal lymph node, right apical pleural thickening, left effusion small and left apical pleural thickening. cont ceftriaxone will give lasix 1 dose SOB ? asthma/ COPD reports [facility]. will start albuterol prn Withdrawal, likely from ecstasy now resolved. H/o IV Opiate use On methadone 60 mg daily, dose was confirmed with [facility] Resume home dose of methadone. Transaminitis/Hepatitis C Hepatitis panel revealed that he was positive for hepatitis C, apparently the patient was aware of this previously, but he has never sought treatment. Will need to have him follow up with infectious disease upon discharge. Hyponatremia resolved Hypertensive urgency Resolved Left cephalic vein thrombus This is considered a superficial thrombus, and does not require treatment for DV T Recommend NSAIDs and warm compress if he develops superficial thrombophlebitis Bipolar disorder/PTSD/Depression/ night terrors/anxiety Patient very fidgety, cannot stand still constantly walking, used to follow with [facility] was on depakote 1000 mg bid, gabapentin 800 mg tid, prazosin 2 mg at HS, trazodone 150 mg at hs will start on gabapentin 300 tid and trazodone 50 mg at HS. will consult psychiatry. Plan/VTE VTE Prophylaxis Ordered?: Yes VS, I&O, 24H, Fishbone Vital Signs/I&O Vital Signs Date Time Temp Pulse Resp B/P (MAP) Pulse Ox O2 Delivery O2 Flow Rate FiO2 02/19/21 05:51 96.0 82 20 178/90 (119) 94 Room Air I&O- Last 24 Hours up to 6 AM 02/19/21 06:00 Intake Total 1850 ml Output Total 0 ml Balance 1850 ml Laboratory Data 24H LABS Laboratory Tests 2 02/19/21 05:23: Nucleated Red Blood Cells % (auto) 0.0, Anion Gap 4L, Glomerular Filtration Rate > 60.0, Calcium Level 8.2L, Magnesium Level 2.1, Total Bilirubin 1.0, Aspartate Amino Transf (AST/SGOT) 243H, Alanine Aminotransferase (ALT/SGPT) 297H, Alkaline Phosphatase 296H, Total Protein 6.4, Albumin 2.1L, Albumin/Globulin Ratio 0.5 CBC/BMP Laboratory Tests 02/19/21 05:23 Microbiology Microbiology 02/17/21 Blood Culture - Preliminary, Resulted No Growth after 48 hours. All Specime... 02/15/21 Respiratory Virus Panel (PCR) ([facility]) - Final, Complete 02/15/21 Blood Culture - Final, Complete Streptococcus Pyogenes Grp A 02/15/21 Blood Culture - Final, Complete Streptococcus Pyogenes Grp A TRACE AMBROSE MD February 19, 2021 08:14
[2021-02-19] MEDS: DOCUSATE SODIUM 100MG CAPSULE PO SCH ×2 (08:32→22:09)
[2021-02-19] MEDS: GABAPENTIN 300 MG CAP PO SCH ×3 (08:33→22:09)
[2021-02-19] MEDS: ENOXAPARIN 40MG/0.4ML SYRINGE (J1650 PER 10MG) SC SCH (08:33)
[2021-02-19] MEDS: FOLIC ACID 1 MG TAB PO SCH (08:33)
[2021-02-19] MEDS: METHADONE 10 MG TAB (S0109) PO SCH (08:33)
[2021-02-19] MEDS: MAGNESIUM OXIDE 400MG TAB (MAG-OX) PO SCH ×3 (08:33→22:09)
--- NOTE | 2021-02-19 09:16 | REP ---
PROCEDURE NAME: PICC LINE INSERTION W/SITERITE CLINICAL INFORMATION: poor access. COMPARISON: None. PROCEDURE DESCRIPTION: The procedure was performed by QUEENIE Langston, under the direct supervision of Dr. Mera. The risks and benefits of the procedure were explained to the patient and an informed consent was obtained both verbally and written. Directly prior to the start of the procedure a formal time-out was completed in the procedure room. The right medial brachial vein was localized using ultrasound guidance. The skin was prepped and draped in sterile fashion. One mL of 1% lidocaine 10 mg/mL was used as a local anesthetic. Using ultrasound guidance the right medial brachial vein was cannulated, and a 0.018 guidewire was inserted and advanced to the level of SVC using fluoroscopic guidance. The needle was removed and a 5.5 Welsh dilator and peel-away sheath was inserted over the guidewire. A 5.5 Welsh dual lumen catheter was cut to a length of 40 cm. The dilator was removed and the catheter was inserted over the guidewire with the tip ending at the level of the SVC. The peel-away sheath was removed and the catheter was flushed with heparinized saline as per hospital protocol. The catheter was affixed to the skin and a sterile dressing was applied. The patient tolerated the procedure well and there were no immediate complications. CONCLUSION: PICC line insertion into the right medial brachial vein. 0.2 minutes of fluoroscopy time was utilized for this procedure. Some fluoroscopic images are performed with last image hold technology. These images require no additional radiation. <Electronically signed by Veronica Koroma > 02/18/21 [id number] <Electronically signed by Oneal Mera > 02/19/21 [id number]
[2021-02-19 11:15] LABS: NT-PRO BNP 760 PG/ML (<125)
[2021-02-19] MEDS: ALBUTEROL 90 MCG/ACT 8GM HFA INHALER INH PRN ×4 (12:25→17:47)
[2021-02-19 14:00] VITALS: BP 169/86
--- NOTE | 2021-02-19 15:56 | REP ---
INDICATION: pleural effusions. COMPARISON: 02/15/2021 the latest prior and portable TECHNIQUE: PA and lateral views FINDINGS: Since the last examination a moderate sized left pleural effusion has developed. Curvilinear left basilar opacities are also noted likely subsegmental atelectatic changes. A right-sided PICC line catheter has been placed the tip of which is in the superior vena cava. There are no other significant changes from the prior exam. IMPRESSION: Left lung base findings as described above. Follow-up is suggested. <Electronically signed by Carlton Watt > 02/19/21 [id number]
[2021-02-19] MEDS: QUEtiapine FUMARATE 25 MG TAB PO SCH ×2 (17:00→22:09)
[2021-02-19] MEDS: cefTRIAXone SOD 2 GM in D5W MINI-BAG PLUS 50 ML IV SCH (17:16)
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
[2021-02-19] MEDS ORDERED: traZODone 50 MG TAB PO SCH (21:00)
[2021-02-19] MEDS: QUEtiapine FUMARATE 50MG TAB PO SCH (22:09)
[2021-02-20] VITALS: BP 180/72
[2021-02-20 05:19] VITALS: BP 197/125
[2021-02-20 05:42] VITALS: BP 174/91
[2021-02-20] MEDS: SODIUM CHLORIDE 0.9% INJ 10 ML SYR IV SCH ×2 (07:22→17:16)
[2021-02-20 07:43] LABS: MEAN CORPUSCULAR HEMOGLOBIN 31.3 pg (27.0-33.0); MEAN CORPUSCULAR HGB CONC 34.3 g/dl (32.0-36.5); MEAN CORPUSCULAR VOLUME 91.4 fl (80.0-96.0); PLATELET COUNT, AUTOMATED 313 10^3/uL (150-450); RED BLOOD COUNT 3.83 10^6/uL (4.30-6.10); WHITE BLOOD COUNT 20.8 10^3/uL (4.0-10.0)
--- NOTE | 2021-02-20 08:10 | IPNPDOC ---
Subjective Date Seen The patient was seen on 02/20/21. Subjective Chief Complaint/HPI Complains of left arm and shoulder pain. BP elevated, Has been awake and agitated all night as per nurses has not sleep much in the last several days always walking in the corridor or inhis room cannot settle down. Objective Physical Examination General Exam: Positive: Alert, Cooperative, No Acute Distress Eye Exam: Positive: PERRLA, Conjunctiva & lids normal, EOMI; Negative: Sclera icteric Neck Exam: Positive: Supple; Negative: JVD, thyromegaly Chest Exam: Positive: Clear to auscultation, Normal air movement Heart Exam: Positive: Rate Normal, Regular Rhythm, Normal S1, Normal S2; Negative: Murmurs, Rubs Abdomen Exam: Positive: Normal bowel sounds, Soft; Negative: Tenderness, Hepatospenomegaly Extremity Exam: Positive: Other (Left upper extremity redness, swollen and tender at spots. ); Negative: Clubbing, Cyanosis, Edema Neuro Exam: Positive: Normal Speech, Strength at 5/5 X4 ext Assessment /Plan Assessment This is a 35 y/o male with a pmh of Bipolar , hep c and polysubstance abuse who presented to the ED four days after beginning to experience redness, swelling and pain of the LUE. Patient stated that he has been using iv essie in that arm and believes that this is the source of his infection. Left upper extremity cellulitis/ Gram-positive bacteremia from IV drug use. blood cultures streptococcus pyogenes. CT of the extremity showed only cellulitis, no edema no gas no necrosis. ID consulted. Antibiotics changed to Ceftriaxone daily Abnormal CT chest / infection enlarged paratracheal lymph node, right apical pleural thickening with some gas bubbles, left effusion and left apical pleural thickening. cont ceftriaxone CXR shows increased effusion will schedule for tap as may have empyema. Left shoulder pain will continue to monitor if worsens will get MRI of shoulder. SOB ? asthma/ COPD reports [facility]. will start albuterol prn Withdrawal, likely from ecstasy now resolved. H/o IV Opiate use On methadone 60 mg daily, dose was confirmed with [facility] Resumed home dose of methadone. Transaminitis/Hepatitis C Hepatitis panel revealed that he was positive for hepatitis C, apparently the patient was aware of this previously, but he has never sought treatment. Will need to have him follow up with infectious disease upon discharge. Hyponatremia resolved Hypertension will start on amlodipine partly could be due to pain, agitation. Left cephalic vein thrombus This is considered a superficial thrombus, and does not require treatment for DVT Recommend NSAIDs and warm compress if he develops superficial thrombophlebitis Bipolar disorder/PTSD/Depression/ night terrors/anxiety Patient very fidgety, cannot stand still constantly walking, used to follow with [facility] was on depakote 1000 mg bid, gabapentin 800 mg tid, prazosin 2 mg at HS, trazodone 150 mg at hs will start on gabapentin 300 tid Appreciate psychiatry consult trazodone at 150 mg and started on seroquel. Plan/VTE VTE Prophylaxis Ordered?: Yes VS, I&O, 24H, Hilariobonmegan Vital Signs/I&O Vital Signs Date Time Temp Pulse Resp B/P (MAP) Pulse Ox O2 Delivery O2 Flow Rate FiO2 02/20/21 05:42 174/91 (118) 02/20/21 05:19 98.0 113 20 96 Room Air I&O- Last 24 Hours up to 6 AM 02/20/21 06:00 Intake Total 1440 ml Output Total 0 ml Balance 1440 ml Laboratory Data 24H LABS Laboratory Tests 2 02/20/21 07:27: Nucleated Red Blood Cells % (auto) 0.0 CBC/BMP Laboratory Tests 02/20/21 07:27 Microbiology Microbiology 02/19/21 Blood Culture, Received Pending 02/19/21 Blood Culture, Received Pending 02/17/21 Blood Culture - Preliminary, Resulted No Growth after 72 hours. All specime... 02/15/21 Respiratory Virus Panel (PCR) ([facility]) - Final, Complete 02/15/21 Blood Culture - Final, Complete Streptococcus Pyogenes Grp A 02/15/21 Blood Culture - Final, Complete Streptococcus Pyogenes Grp A TRACE AMBROSE MD February 20, 2021 08:10
[2021-02-20 08:22] LABS: ALBUMIN 2.2 GM/DL (3.2-5.2); ALT/SGPT 356 U/L (12-78); BILIRUBIN,TOTAL 1.5 MG/DL (0.2-1.0); BLOOD UREA NITROGEN 11 MG/DL (7-18); CALCIUM LEVEL 8.4 MG/DL (8.5-10.1); CARBON DIOXIDE LEVEL 30 MEQ/L (21-32); CHLORIDE LEVEL 97 MEQ/L (98-107); CREATININE FOR GFR 0.67 MG/DL (0.70-1.30); GLOMERULAR FILTRATION RATE > 60.0 (>60); GLUCOSE, FASTING 103 MG/DL (70-100); MAGNESIUM LEVEL 2.2 MG/DL (1.8-2.4); POTASSIUM SERUM 4.7 MEQ/L (3.5-5.1); SODIUM LEVEL 131 MEQ/L (136-145); TOTAL PROTEIN 7.1 GM/DL (6.4-8.2)
[2021-02-20] MEDS: QUEtiapine FUMARATE 25 MG TAB PO SCH ×2 (09:00→21:33)
[2021-02-20] MEDS: MAGNESIUM OXIDE 400MG TAB (MAG-OX) PO SCH ×3 (09:19→20:20)
[2021-02-20] MEDS: METHADONE 10 MG TAB (S0109) PO SCH (09:19)
[2021-02-20] MEDS: GABAPENTIN 300 MG CAP PO SCH ×3 (09:19→20:20)
[2021-02-20] MEDS: DOCUSATE SODIUM 100MG CAPSULE PO SCH ×2 (09:19→20:20)
[2021-02-20] MEDS: FOLIC ACID 1 MG TAB PO SCH (09:19)
[2021-02-20] MEDS: KETOROLAC 30 MG/ML 1ML VIAL IV PRN ×2 (09:20→16:23)
[2021-02-20] MEDS: ENOXAPARIN 40MG/0.4ML SYRINGE (J1650 PER 10MG) SC SCH (09:20)
[2021-02-20] MEDS: hydrOXYzine 50 MG TAB PO PRN ×3 (09:20→21:33)
[2021-02-20 14:00] VITALS: BP 178/111
[2021-02-20] MEDS: cefTRIAXone SOD 2 GM in D5W MINI-BAG PLUS 50 ML IV SCH (16:24)
[2021-02-20] MEDS: QUEtiapine FUMARATE 50MG TAB PO SCH (21:33)
[2021-02-21 06:00] VITALS: BP 166/96
[2021-02-21] MEDS: SODIUM CHLORIDE 0.9% INJ 10 ML SYR IV SCH ×2 (06:04→17:21)
[2021-02-21] MEDS: KETOROLAC 30 MG/ML 1ML VIAL IV PRN ×2 (06:22→15:30)
[2021-02-21 06:38] LABS: HEMATOCRIT 35.3 % (42.0-52.0); HEMOGLOBIN 11.8 g/dl (13.5-17.5); MEAN CORPUSCULAR HGB CONC 33.4 g/dl (32.0-36.5); MEAN CORPUSCULAR VOLUME 92.7 fl (80.0-96.0); PLATELET COUNT, AUTOMATED 337 10^3/uL (150-450); RED BLOOD COUNT 3.81 10^6/uL (4.30-6.10); WHITE BLOOD COUNT 23.7 10^3/uL (4.0-10.0)
[2021-02-21 07:09] LABS: ALBUMIN 2.1 GM/DL (3.2-5.2); ALT/SGPT 283 U/L (12-78); BILIRUBIN,TOTAL 1.5 MG/DL (0.2-1.0); BLOOD UREA NITROGEN 10 MG/DL (7-18); CALCIUM LEVEL 8.1 MG/DL (8.5-10.1); CARBON DIOXIDE LEVEL 28 MEQ/L (21-32); CHLORIDE LEVEL 98 MEQ/L (98-107); CREATININE FOR GFR 0.68 MG/DL (0.70-1.30); GLOMERULAR FILTRATION RATE > 60.0 (>60); GLUCOSE, FASTING 103 MG/DL (70-100); MAGNESIUM LEVEL 2.2 MG/DL (1.8-2.4); POTASSIUM SERUM 4.7 MEQ/L (3.5-5.1); SODIUM LEVEL 131 MEQ/L (136-145); TOTAL PROTEIN 7.2 GM/DL (6.4-8.2)
[2021-02-21] MEDS ORDERED: LORazepam 2 MG/ML VIAL IV ONE (07:55)
[2021-02-21 08:59] VITALS: BP 169/98
[2021-02-21] MEDS: FOLIC ACID 1 MG TAB PO SCH (09:01)
[2021-02-21] MEDS: DOCUSATE SODIUM 100MG CAPSULE PO SCH ×2 (09:01→21:27)
[2021-02-21] MEDS: ENOXAPARIN 40MG/0.4ML SYRINGE (J1650 PER 10MG) SC SCH (09:01)
[2021-02-21] MEDS: GABAPENTIN 300 MG CAP PO SCH ×3 (09:01→21:27)
[2021-02-21] MEDS: QUEtiapine FUMARATE 25 MG TAB PO SCH ×2 (09:01→21:27)
[2021-02-21] MEDS: MAGNESIUM OXIDE 400MG TAB (MAG-OX) PO SCH ×3 (09:01→21:28)
[2021-02-21] MEDS: METHADONE 10 MG TAB (S0109) PO SCH (09:02)
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
[2021-02-21 14:00] VITALS: BP 158/92
[2021-02-21] MEDS: SODIUM CHLORIDE 0.9% INJ 10 ML SYR IV PRN (15:31)
[2021-02-21] MEDS: cefTRIAXone SOD 2 GM in D5W MINI-BAG PLUS 50 ML IV SCH (17:20)
[2021-02-21] MEDS: QUEtiapine FUMARATE 50MG TAB PO SCH (21:27)
[2021-02-21] MEDS: hydrOXYzine 50 MG TAB PO PRN (21:30)
--- NOTE | 2021-02-21 21:30 | MHCR ---
CONSULTATION DATE: 02/20/2021 REASON FOR CONSULTATION: I was asked to see this patient because he was admitted to the hospital with cellulitis and an abscess in his arm. He is an intravenous drug user. He had been in [facility] and discharged on January 18. He went to [facility] and they did start him on some Methadone. He is a and used to attend the [facility] in the past with a diagnosis of PTSD and nightmares, and the patient had been on Depakote 1,000 mg twice daily, Trazodone 150 mg q. h.s. p.r.n. for insomnia, Gabapentin 800 mg three times daily and he also was being treated with Prazosin. Well that was a few years ago and apparently the reason I was consulted was because the patient was noted to be pretty restless and agitated and pacing and also that it was felt that the patient had said that he wanted to get back on some of these other psychotropic medications. When I went to see the patient, the patient was very angry and loud and was basically yelling and stating something about his daughters and not being able to see his daughters and the only thing he cared about was his daughters and basically he was not able to explain to me what the situation was with his daughters that he was upset about. It took a while but finally he allowed me to ask him a few questions. But it was very difficult. He was definitely having the pressured speech and the flight of ideas, but I did gather from this patient that he did not like taking the Depakote. He did not think it helped and he felt that it over sedated him. He says he does not need the Prazosin because he used to have nightmares but he does not now. He definitely wanted the Gabapentin and the doctor had already started him on a low dose of Gabapentin 400 mg three times daily, and he understood that you need to increase that gradually, but he wanted to be on the Trazodone because he said sleep has been a really big problem for him. The patient reluctantly agreed to maybe get started on some Seroquel, because I told him the Seroquel might help him to sleep better also. So basically I am not able to obtain any further history from this patient other than what I have already noted. PAST PSYCHIATRIC HISTORY: As noted above. The patient did deny that he has ever made any suicide attempts. FAMILY HISTORY: Unknown. ABUSE HISTORY: Unknown. SUBSTANCE ABUSE: This is positive for abuse of opioids in the past and now the patient is on Methadone. MENTAL STATUS EXAMINATION: The patient is alert and he is oriented to person and place. His speech is pressured. He is almost yelling at times. He has flight of ideas. His mood is manic and angry. His affect is labile. He is not psychotic. He is denying being suicidal or homicidal. Concentration is fair. Memory is fair. Insight and judgment are fair. DIAGNOSIS: 1. Unspecified bipolar disorder. 2. Opioid use disorder on Methadone. 3. History of PTSD. TREATMENT PLAN AND RECOMMENDATIONS: At this point the patient appears to be quite manic. He is willing to take Seroquel 25 mg twice daily and 50 q. h.s., so we will start the Seroquel right away. He also will be on the Trazodone but I will increase it to the 150 mg q. h.s. p.r.n. for insomnia, that he had been on. And I believe also some Hydroxyzine 50 mg q. 4 hours p.r.n. has been ordered for anxiety. And at this point please re-consult if further problems occur. He is not suicidal or homicidal or if he demands to go, there is no reason why he cannot go home, but definitely I would recommend follow up upon discharge.
[2021-02-21 22:00] VITALS: BP 159/95
[2021-02-22] MEDS: traZODone 50 MG TAB PO PRN (01:05)
[2021-02-22] MEDS: KETOROLAC 30 MG/ML 1ML VIAL IV PRN ×3 (05:05→21:14)
[2021-02-22] MEDS: SODIUM CHLORIDE 0.9% INJ 10 ML SYR IV SCH ×2 (05:06→18:10)
[2021-02-22 05:29] LABS: HEMATOCRIT 32.8 % (42.0-52.0); HEMOGLOBIN 11.1 g/dl (13.5-17.5); MEAN CORPUSCULAR HEMOGLOBIN 31.3 pg (27.0-33.0); MEAN CORPUSCULAR HGB CONC 33.8 g/dl (32.0-36.5); MEAN CORPUSCULAR VOLUME 92.4 fl (80.0-96.0); PLATELET COUNT, AUTOMATED 377 10^3/uL (150-450); RED BLOOD COUNT 3.55 10^6/uL (4.30-6.10); WHITE BLOOD COUNT 19.3 10^3/uL (4.0-10.0)
[2021-02-22] MEDS: ACETAMINOPHEN TAB 650MG DOSE (2X325MG) PO PRN ×3 (05:43→22:46)
[2021-02-22 06:00] VITALS: BP_SYST 114; BP_SYST 140; BP_DIAS 78; BP_DIAS 82
[2021-02-22 06:03] LABS: ALBUMIN 2.1 GM/DL (3.2-5.2); ALT/SGPT 252 U/L (12-78); BILIRUBIN,TOTAL 1.1 MG/DL (0.2-1.0); BLOOD UREA NITROGEN 12 MG/DL (7-18); CALCIUM LEVEL 7.8 MG/DL (8.5-10.1); CARBON DIOXIDE LEVEL 29 MEQ/L (21-32); CHLORIDE LEVEL 97 MEQ/L (98-107); CREATININE FOR GFR 0.75 MG/DL (0.70-1.30); GLOMERULAR FILTRATION RATE > 60.0 (>60); GLUCOSE, FASTING 102 MG/DL (70-100); MAGNESIUM LEVEL 2.1 MG/DL (1.8-2.4); POTASSIUM SERUM 4.6 MEQ/L (3.5-5.1); SODIUM LEVEL 132 MEQ/L (136-145); TOTAL PROTEIN 7.1 GM/DL (6.4-8.2)
[2021-02-22] MEDS: ENOXAPARIN 40MG/0.4ML SYRINGE (J1650 PER 10MG) SC SCH (07:19)
[2021-02-22] MEDS ORDERED: LORazepam 2 MG/ML VIAL IV ONE (09:00)
[2021-02-22] MEDS: GABAPENTIN 300 MG CAP PO SCH ×3 (10:36→22:45)
[2021-02-22] MEDS: METHADONE 10 MG TAB (S0109) PO SCH (10:36)
[2021-02-22] MEDS: QUEtiapine FUMARATE 25 MG TAB PO SCH ×2 (10:36→22:45)
[2021-02-22] MEDS: MAGNESIUM OXIDE 400MG TAB (MAG-OX) PO SCH ×3 (10:36→22:45)
[2021-02-22] MEDS: FOLIC ACID 1 MG TAB PO SCH (10:37)
[2021-02-22] MEDS: DOCUSATE SODIUM 100MG CAPSULE PO SCH ×2 (10:37→22:44)
[2021-02-22 14:00] VITALS: BP 174/104
--- NOTE | 2021-02-22 16:17 | REPVR ---
PROCEDURE INFORMATION: Exam: CT Left Upper Extremity Without Contrast, Shoulder Exam date and time: 02/22/2021 3:48 PM Age: 35 years old Clinical indication: Pain; Shoulder; Left; Additional info: R/O septic joint TECHNIQUE: Imaging protocol: CT of the Left upper extremity without contrast was performed. Exam focused on the shoulder. Axial, coronal and sagittal reformatted images were created and reviewed. Radiation optimization: All CT scans at this facility use at least one of these dose optimization techniques: automated exposure control; mA and/or kV adjustment per patient size (includes targeted exams where dose is matched to clinical indication); or iterative reconstruction. COMPARISON: US EXTREMITY NON VASCUL LIMITED LEFT 02/15/2021 4:32 AM FINDINGS: Bones/joints: Os acromiale. No CT evidence of acute fracture or dislocation. Alignment anatomic. Joint spaces preserved. No erosive or destructive changes. No lytic or blastic lesion. No significant effusion. Soft tissues: Grossly unremarkable. Lymph nodes: Small left axillary lymph nodes, likely reactive. Pleural space: Large, loculated left pleural effusion with associated compressive atelectatic change. IMPRESSION: 1. Limited noncontrast examination. 2. No evidence of septic arthritis. 3. Additional findings, as above. Electronically signed by: Ha Brower On 02/22/2021 16:17:43 PM
[2021-02-22] MEDS: cefTRIAXone SOD 2 GM in D5W MINI-BAG PLUS 50 ML IV SCH (16:20)
[2021-02-22 22:00] VITALS: BP 170/100
[2021-02-22] MEDS: hydrOXYzine 50 MG TAB PO PRN (22:45)
[2021-02-22] MEDS: QUEtiapine FUMARATE 50MG TAB PO SCH (22:45)
[2021-02-22 23:05] VITALS: BP 140/80
[2021-02-23] MEDS: SODIUM CHLORIDE 0.9% INJ 10 ML SYR IV SCH ×2 (05:23→17:55)
[2021-02-23] MEDS: KETOROLAC 30 MG/ML 1ML VIAL IV PRN ×3 (05:38→22:13)
[2021-02-23 05:42] LABS: BASO % 0.2 % (0.0-1.0); EOS # 0.2 10^3/uL (0.0-0.5); EOS % 0.9 % (0.0-3.0); HEMATOCRIT 33.7 % (42.0-52.0); LYMPH # 2.1 10^3/uL (1.5-5.0); LYMPH % 12.1 % (24.0-44.0); MEAN CORPUSCULAR HEMOGLOBIN 30.5 pg (27.0-33.0); MEAN CORPUSCULAR HGB CONC 32.6 g/dl (32.0-36.5); MEAN CORPUSCULAR VOLUME 93.4 fl (80.0-96.0); MONO % 11.4 % (2.0-8.0); NEUTROPHILS # 12.6 10^3/uL (1.5-8.5); NEUTROPHILS % 73.3 % (36.0-66.0); PLATELET COUNT, AUTOMATED 422 10^3/uL (150-450); RED BLOOD COUNT 3.61 10^6/uL (4.30-6.10)
[2021-02-23 05:48] LABS: WHITE BLOOD COUNT 17.2 10^3/uL (4.0-10.0)
[2021-02-23 06:00] VITALS: BP 170/115
[2021-02-23 06:11] LABS: BLOOD UREA NITROGEN 15 MG/DL (7-18); CALCIUM LEVEL 8.4 MG/DL (8.5-10.1); CARBON DIOXIDE LEVEL 29 MEQ/L (21-32); CHLORIDE LEVEL 99 MEQ/L (98-107); CREATININE FOR GFR 0.74 MG/DL (0.70-1.30); GLOMERULAR FILTRATION RATE > 60.0 (>60); GLUCOSE, FASTING 123 MG/DL (70-100); SODIUM LEVEL 133 MEQ/L (136-145)
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
[2021-02-23] MEDS: QUEtiapine FUMARATE 25 MG TAB PO SCH ×2 (07:23→22:12)
[2021-02-23] MEDS: FOLIC ACID 1 MG TAB PO SCH (07:23)
[2021-02-23] MEDS: MAGNESIUM OXIDE 400MG TAB (MAG-OX) PO SCH ×3 (07:24→22:11)
[2021-02-23] MEDS: METHADONE 10 MG TAB (S0109) PO SCH (07:24)
[2021-02-23] MEDS: DOCUSATE SODIUM 100MG CAPSULE PO SCH ×2 (07:24→22:11)
[2021-02-23] MEDS: GABAPENTIN 300 MG CAP PO SCH ×3 (07:24→22:12)
[2021-02-23] MEDS ORDERED: LORazepam 2 MG/ML VIAL IV ONE (08:00)
--- NOTE | 2021-02-23 08:08 | IPN ---
PROGRESS NOTE DATE: 02/22/2021 SUBJECTIVE: Eric is doing well today. He states his shoulder pain has improved, as well as his arm swelling. He did have a fever this afternoon and he is going for a thoracentesis. He is sleeping better. He was seen by psychiatry who started him on some of his depression and bipolar medication along with Seroquel. He has mild shortness of breath, but no cough or pleurisy. No nausea, vomiting, or diarrhea. OBJECTIVE: HEART: Normal, S1, S2, tachycardic. No murmurs appreciated. LUNGS: Diminished breath sounds at both bases, but no wheezes or rhonchi. ABDOMEN: Soft, nontender, and no hepatosplenomegaly. EXTREMITIES: Left upper extremity swelling and redness have diminished with some areas of induration along the biceps. No purulent discharge. Extremities with +1 pitting edema on the right side and trace edema on the left. LABORATORY DATA: White count 19.3, hemoglobin 11.1, hematocrit 32.8, platelets 377,000. Sodium 132, potassium 4.6, chloride 97, bicarb 29, BUN 12, creatinine 0.75, glucose 102, calcium 7.8, magnesium 2.1. Bilirubin 1.1, AST 120, ALT 252, alkaline phosphatase 241. CRP 16.6 improved from 25.7, but remains elevated over the past three days without change. Blood cultures were positive on 02/15 with group A strep. Negative on 02/17 and 02/19. IMAGING DATA: CT shoulder 02/22, shows no evidence of septic arthritis. No fracture or dislocation. A large lobulated left pleural effusion with compressive atelectatic changes are noted. IMPRESSION: 1. Group A streptococcus sepsis from left arm cellulitis on IV Rocephin currently day #7. The patient with persistent fever in spite of improving left arm cellulitis most likely related to empyema. 2. Large left pleural effusion. The patient needs thoracentesis possibly of both lungs as he has some air on the right side as well. 3. Hepatitis C with abnormal liver function tests. This will be treated as an outpatient. PLAN: Continue with IV Rocephin 2 grams q. 24 hours. Thoracentesis possibly bilateral with repeat chest CT if needed. This was supposed to have been done today, but I do not see any documentation of procedure note today.
[2021-02-23] MEDS: ENOXAPARIN 40MG/0.4ML SYRINGE (J1650 PER 10MG) SC SCH (09:00)
--- NOTE | 2021-02-23 11:32 | IPNPDOC ---
Subjective Date Seen The patient was seen on 02/23/21. Subjective Chief Complaint/HPI Had a fever spike of 101.9 yesterday afternoon. Patient has been sleeping well last 2 to 3 days. Has been less manic. Got the CT shoulder but not the pleural tap yet. Objective Physical Examination General Exam: Positive: Alert, Cooperative, No Acute Distress Eye Exam: Positive: PERRLA, Conjunctiva & lids normal, EOMI; Negative: Sclera icteric Neck Exam: Positive: Supple; Negative: JVD, thyromegaly Chest Exam: Positive: Clear to auscultation, Normal air movement Heart Exam: Positive: Rate Normal, Regular Rhythm, Normal S1, Normal S2; Negative: Murmurs, Rubs Abdomen Exam: Positive: Normal bowel sounds, Soft; Negative: Tenderness, Hepatospenomegaly Extremity Exam: Positive: Swelling (left forearm. ); Negative: Clubbing, Cyanosis, Edema Neuro Exam: Positive: Normal Speech, Strength at 5/5 X4 ext Assessment /Plan Assessment This is a 35 y/o male with a pmh of Bipolar , hep c and polysubstance abuse who presented to the ED four days after beginning to experience redness, swelling and pain of the LUE. Patient stated that he has been using iv essie in that arm and believes that this is the source of his infection. Left upper extremity cellulitis/ Gram-positive bacteremia from IV drug use. Cellulitis has improved. blood cultures streptococcus pyogenes. CT of the extremity showed only cellulitis, no edema no gas no necrosis n abscess On Ceftriaxone daily Left loculated pleural effusion Abnormal CT chest / infection enlarged paratracheal lymph node, right apical pleural thickening with some gas bubbles, left effusion and left apical pleural thickening. cont ceftriaxone scheduled for tap as may have empyema. Left shoulder pain could not get MRI due to shrapnel in the face SOB ? asthma/ COPD reports [facility]. will start albuterol prn H/o IV Opiate use On methadone 60 mg daily, dose was confirmed with [facility] Resumed home dose of methadone. Transaminitis/Hepatitis C Hepatitis panel revealed that he was positive for hepatitis C, apparently the patient was aware of this previously, but he has never sought treatment. Will need to have him follow up with infectious disease upon discharge. Hyponatremia resolved Hypertension will start on amlodipine partly could be due to agitation. Left cephalic vein thrombus This is considered a superficial thrombus, and does not require treatment for DVT Recommend NSAIDs and warm compress if he develops superficial thrombophlebitis Bipolar disorder/PTSD/Depression/ night terrors/anxiety Patient very fidgety, cannot stand still constantly walking, used to follow with [place] [facility] was on depakote 1000 mg bid, gabapentin 800 mg tid, prazosin 2 mg at HS, tr azodone 150 mg at hs will start on gabapentin 300 tid Appreciate psychiatry consult trazodone at 150 mg and started on seroquel. Plan/VTE VTE Prophylaxis Ordered?: Yes VS, I&O, 24H, Fishbone Vital Signs/I&O Vital Signs Date Time Temp Pulse Resp B/P (MAP) Pulse Ox O2 Delivery O2 Flow Rate FiO2 02/23/21 06:00 99.6 130 19 170/115 (133) 92 Room Air I&O- Last 24 Hours up to 6 AM 02/23/21 06:00 Intake Total 2140 ml Balance 2140 ml Laboratory Data 24H LABS Laboratory Tests 2 02/23/21 05:22: Immature Granulocyte % (Auto) 2.1, Neutrophils (%) (Auto) 73.3H, Lymphocytes (%) (Auto) 12.1L, Monocytes (%) (Auto) 11.4H, Eosinophils (%) (Auto) 0.9, Basophils (%) (Auto) 0.2, Neutrophils # (Auto) 12.6H, Lymphocytes # (Auto) 2.1, Monocytes # (Auto) 2.0H, Eosinophils # (Auto) 0.2, Basophils # (Auto) 0.0, Nucleated Red Blood Cells % (auto) 0.0, Anion Gap 5L, Glomerular Filtration Rate > 60.0, Calcium Level 8.4L, C-Reactive Protein, Quantitative 16.10H CBC/BMP Laboratory Tests 02/23/21 05:22 Microbiology Microbiology 02/19/21 Blood Culture - Preliminary, Resulted No Growth after 72 hours. All specime... 02/19/21 Blood Culture - Preliminary, Resulted No Growth after 72 hours. All specime... 02/17/21 Blood Culture - Final, Complete NO GROWTH AFTER 5 DAYS 02/15/21 Respiratory Virus Panel (PCR) ([facility]MUNDO) - Final, Complete 02/15/21 Blood Culture - Final, Complete Streptococcus Pyogenes Grp A 5/17/21 Blood Culture - Final, Complete Streptococcus Pyogenes Grp A TRACE AMBROSE MD February 23, 2021 07:09
[2021-02-23] MEDS ORDERED: ACETAMINOPHEN 325 MG TAB As Ordered ONE (13:33)
[2021-02-23] MEDS: ACETAMINOPHEN TAB 650MG DOSE (2X325MG) PO PRN ×2 (13:35→22:12)
[2021-02-23] MEDS ORDERED: LIDOCAINE 1% MDV 20ML VIAL As Ordered ONE (13:48)
[2021-02-23] MEDS ORDERED: SODIUM BICARBONATE 8.4% INJ 50MEQ 50 ML VIAL As Ordered ONE (13:48)
[2021-02-23 14:00] VITALS: BP 135/76
--- NOTE | 2021-02-23 14:56 | REP ---
INDICATION: POST LEFT THORA, 2 VIEW COMPARISON: 02/20/2021 TECHNIQUE: PA and lateral. FINDINGS: Right PICC line with tip in the SVC. Left mid to lower lobe opacities consistent with airspace disease and moderate pleural effusion are relatively similar to prior examination. No obvious pneumothorax. IMPRESSION: 1. Moderate left pleural effusion and mid to lower lobe airspace disease similar to prior examination. <Electronically signed by Prince Do > 02/23/21 [id number]
[2021-02-23 15:01] LABS: PH BODY FLUID 7.675 UNITS (NOT ESTABLISHED); SOURCE, BODY FLUID pH PLEURAL
[2021-02-23 15:11] LABS: APPEARANCE, BODY FLUID HAZY (CLEAR); PLEURAL FL COLOR YELLOW (COLORLESS); SOURCE, BODY FLUID PLEURAL
[2021-02-23 15:52] LABS: AMYLASE, BODY FLUID 33 U/L (NOT ESTABLISHED); LDH, BODY FLUID 773 U/L (NOT ESTABLISHED); SOURCE, BODY FLUID ALBUMIN PLEURAL; SOURCE, BODY FLUID AMYLASE PLEURAL; SOURCE, BODY FLUID GLUCOSE PLEURAL; SOURCE, BODY FLUID LDH PLEURAL; SOURCE, BODY FLUID TOT PROTEIN PLEURAL; TOTAL PROTEIN, BODY FLUID 5.6 G/DL (NOT ESTABLISHED)
--- NOTE | 2021-02-23 17:07 | REP ---
INDICATION: and therapeutic. LEFT sided The patient has a history of left pleural effusion COMPARISON: None. TECHNIQUE: The procedure was performed by Veronica Koroma [facility], under the direct supervision of Dr. Mae The risks and benefits of the procedure were explained to the patient and an informed consent was obtained both verbally and written. Directly prior to the start of the procedure a formal time-out was completed in the procedure room. Pleural fluid in left lung zone was localized using ultrasound guidance. The skin was prepped and draped in a sterile fashion. Ten ML of buffered lidocaine was used as a local anesthetic. Using ultrasound guidance an 8-Pashto multi side-hole catheter was inserted using trocar technique. FINDINGS: One thousand four hundred fifty mL of straw colored fluid was withdrawn and sent to the laboratory for further analysis. The patient tolerated the procedure well and there were no immediate complications. After the appropriate amount of monitored convalescence, the patient was discharged from the department. IMPRESSION: Ultrasound-guided thoracentesis with removal of 1450 mL of straw-colored pleural fluid. <Electronically signed by Veronica Koroma > 02/23/21 1640 <Electronically signed by Van Mae > 02/23/21 [id number]
[2021-02-23] MEDS: cefTRIAXone SOD 2 GM in D5W MINI-BAG PLUS 50 ML IV SCH (17:54)
[2021-02-23 18:10] LABS: ERYTHROCYTE SEDIMENTATION RATE 106 mm/hr (0-15)
--- NOTE | 2021-02-23 20:22 | IPN ---
PROGRESS NOTE DATE: 02/23/2021 SUBJECTIVE: Eric had a thoracentesis today on the left side with 1400 mL of pleural fluid drained. There was no purulence noted in the pleural fluid. He tolerated the procedure well. The patient did have a fever up to 105.6 in the x-ray suite. The denied having any chills. No increased cough. He denied any significant shortness of breath. No nausea, vomiting, or diarrhea. OBJECTIVE: VITAL SIGNS: Temperature is currently 97, but at 1 o'clock was 105.9. Pulse 116, respirations 20, O2 sat 95% on 2 liters nasal cannula. HEART: Normal S1, S2, tachycardic. LUNGS: Decreased breath sounds at the left base, but improved air entry compared to yesterday. No wheezes, rales, or rhonchi. ABDOMEN: Obese, soft, and nontender. EXTREMITIES: +1 pitting edema bilaterally. Left arm erythema has markedly decreased. He has some areas of induration along the veins that he probably used for IV drug use with some induration, but no redness. His left shoulder range of motion has markedly improved. He is able to abduct to 160 degrees. MEDICATIONS: 1. Amlodipine 10 mg daily. 2. Seroquel 50 mg p.o. q. h.s. and 25 mg p.o. b.i.d. 3. Trazodone as needed for sleep 150 mg q. h.s. 4. Ceftriaxone 2 grams q. 24. 5. Lovenox 40 mg subcutaneously q. 24 hours. The patient has refused injections yesterday and today. LABORATORY DATA: White count 17.2, hemoglobin 11, hematocrit 33.7, platelets 422,000, neutrophils 73%, lymphocytes 12%, monocytes 11%. Sodium 133, potassium 5, chloride 99, bicarb 29, BUN 15, creatinine 0.74, glucose 123. Calcium 8.4. AST 120, ALT 252. CRP remains elevated at 16.1. Albumin 2.1. Last blood cultures done on 02/19 were no growth after 72 hours. Pleural fluid gram stain had many red cells and no organisms seen. AFB smear and culture are pending. Fungal smear and culture are pending. IMAGING DATA: Shoulder CT did not show any evidence of septic arthritis. Limited noncontrast examination. IMPRESSION : 1. Group A streptococcal cellulitis of the left arm with severe sepsis. The patient continues with fever up to 105.9 today, which is concerning for another focus of infection, possibly endocarditis, septic phlebitis of the veins in his left arm. Although clinically the patient is doing much better with his left arm. There is no evidence of septic arthritis of the shoulder joint. 2. Left pleural effusion status post thoracentesis. It looks like a parapneumonic effusion with a pH of 7.65, fluids 1367 with 91% PMNs. Fluid LDH is 773, which is quite elevated. Fluid albumin 1.9. Will wait for culture. PLAN Suggest obtaining follow-up chest x-ray PA and lateral tomorrow. Repeat blood culture and sed rate today. Echocardiogram results are not available in the chart yet. We have called medical records, as well as sleep lab for echo result. If the patient has persistent fevers, elevated sed rate, and CRP persistently elevated, I would suggest obtaining a transesophageal echocardiogram to rule out endocarditis. BECKI
[2021-02-23 22:00] VITALS: BP 156/75
[2021-02-23] MEDS: QUEtiapine FUMARATE 50MG TAB PO SCH (22:11)
[2021-02-23] MEDS: hydrOXYzine 50 MG TAB PO PRN (22:12)
[2021-02-24] MEDS: SODIUM CHLORIDE 0.9% INJ 10 ML SYR IV SCH ×2 (05:30→17:28)
[2021-02-24] MEDS: SODIUM CHLORIDE 0.9% INJ 10 ML SYR IV PRN ×2 (05:51→21:20)
[2021-02-24] MEDS: KETOROLAC 30 MG/ML 1ML VIAL IV PRN ×3 (05:51→21:22)
[2021-02-24 05:58] LABS: BASO % 0.3 % (0.0-1.0); EOS # 0.2 10^3/uL (0.0-0.5); EOS % 1.5 % (0.0-3.0); HEMATOCRIT 30.8 % (42.0-52.0); HEMOGLOBIN 10.1 g/dl (13.5-17.5); LYMPH # 2.6 10^3/uL (1.5-5.0); LYMPH % 24.6 % (24.0-44.0); MEAN CORPUSCULAR HEMOGLOBIN 30.5 pg (27.0-33.0); MEAN CORPUSCULAR HGB CONC 32.8 g/dl (32.0-36.5); MEAN CORPUSCULAR VOLUME 93.1 fl (80.0-96.0); MONO # 1.2 10^3/uL (0.0-0.8); MONO % 10.8 % (2.0-8.0); NEUTROPHILS # 6.6 10^3/uL (1.5-8.5); NEUTROPHILS % 61.6 % (36.0-66.0); PLATELET COUNT, AUTOMATED 399 10^3/uL (150-450); RED BLOOD COUNT 3.31 10^6/uL (4.30-6.10); WHITE BLOOD COUNT 10.7 10^3/uL (4.0-10.0)
[2021-02-24 06:00] VITALS: BP 173/98
[2021-02-24 06:27] LABS: BLOOD UREA NITROGEN 13 MG/DL (7-18); CALCIUM LEVEL 8.4 MG/DL (8.5-10.1); CARBON DIOXIDE LEVEL 27 MEQ/L (21-32); CHLORIDE LEVEL 99 MEQ/L (98-107); CREATININE FOR GFR 0.67 MG/DL (0.70-1.30); GLOMERULAR FILTRATION RATE > 60.0 (>60); GLUCOSE, FASTING 127 MG/DL (70-100); POTASSIUM SERUM 4.3 MEQ/L (3.5-5.1); SODIUM LEVEL 134 MEQ/L (136-145)
[2021-02-24] MEDS: ACETAMINOPHEN TAB 650MG DOSE (2X325MG) PO PRN ×2 (06:41→14:42)
[2021-02-24] MEDS: hydrOXYzine 50 MG TAB PO PRN (06:41)
[2021-02-24] MEDS: DOCUSATE SODIUM 100MG CAPSULE PO SCH ×2 (07:59→21:19)
[2021-02-24] MEDS: FOLIC ACID 1 MG TAB PO SCH (07:59)
[2021-02-24] MEDS: MAGNESIUM OXIDE 400MG TAB (MAG-OX) PO SCH ×3 (07:59→21:19)
[2021-02-24] MEDS: QUEtiapine FUMARATE 25 MG TAB PO SCH ×2 (07:59→21:20)
[2021-02-24] MEDS: GABAPENTIN 300 MG CAP PO SCH ×3 (07:59→21:20)
[2021-02-24] MEDS: METHADONE 10 MG TAB (S0109) PO SCH (08:00)
[2021-02-24] MEDS: ENOXAPARIN 40MG/0.4ML SYRINGE (J1650 PER 10MG) SC SCH (08:00)
--- NOTE | 2021-02-24 08:05 | IPNPDOC ---
Subjective Date Seen The patient was seen on 02/24/21. Subjective Chief Complaint/HPI Continues to have high grade fever spikes. Had a T max of 105.7 yesterday afternoon. No abdominal pain no diarrhea. arm feels better, no sob or cough. Will repeat CXR. Had 1400 cc fluid was removed. As per RN he was smoking in the bathroom yesterday. Objective Physical Examination General Exam: Positive: Alert, Cooperative, No Acute Distress Eye Exam: Positive: PERRLA, Conjunctiva & lids normal, EOMI; Negative: Sclera icteric Neck Exam: Positive: Supple; Negative: JVD, thyromegaly Chest Exam: Positive: Clear to auscultation, Normal air movement Heart Exam: Positive: Rate Normal, Regular Rhythm, Normal S1, Normal S2; Negative: Murmurs, Rubs Abdomen Exam: Positive: Normal bowel sounds, Soft; Negative: Tenderness, Hepatospenomegaly Extremity Exam: Positive: Swelling (left forearm. ); Negative: Clubbing, Cyanosis, Edema Neuro Exam: Positive: Normal Speech, Strength at 5/5 X4 ext Assessment /Plan Assessment This is a 35 y/o male with a pmh of Bipolar , hep c and polysubstance abuse who presented to the ED four days after beginning to experience redness, swelling and pain of the LUE. Patient stated that he has been using iv essie in that arm and believes that this is the source of his infection. Persistent fever, elevated WBC, elevated CRP cellulitis improved, no septic arthritis of the left shoulder, parapneumonic effusion drained on 02/23/21, echo result still pending. if continues to be febrile will get a MANA to evaluate for infective endocarditis. other possibility is septic thrombophlebitis of the left cephalic vein . But arm looks better so this is less likely. Left upper extremity cellulitis/ Gram-positive bacteremia from IV drug use. Cellulitis has improved. blood cultures streptococcus pyogenes. CT of the extremity showed only cellulitis, no edema no gas no necrosis n abscess On Ceftriaxone daily Left loculated pleural effusion with underlying Pneumonia enlarged paratracheal lymph node, right apical pleural thickening with some gas bubbles, left effusion and left apical pleural thickening. cont ceftriaxone s/p paracentesis on 02/23/21. Looks this is a parapneumonic effusion. cultures are pending. 1400 cc of fluid was removed. Left shoulder pain could not get MRI due to shrapnel in the face, Had CT which is negative for septic arthritis. Left cephalic vein thrombus This is considered a superficial thrombus, and does not require treatment for DVT Recommend NSAIDs and warm compress if he develops superficial thrombophlebitis SOB ? asthma/ COPD reports [facility]. will start albuterol prn H/o IV Opiate use On methadone 60 mg daily, dose was confirmed with [facility] Resumed home dose of methadone. Transaminitis/Hepatitis C Hepatitis panel revealed that he was positive for hepatitis C, apparently the patient was aware of this previously, but he has never sought treatment. Will need to have him follow up with infectious disease upon discharge. Hyponatremia resolved Hypertension will start on amlodipine partly could be due to agitation. Bipolar disorder/PTSD/Depression/ night terrors/anxiety Was in Manic phase initially. used to follow with [place] [facility] but has been off meds for 1 year as he was in [facility]. Started on gabapentin 300 tid , trazodone 150 mg and started on seroquel. Appreciate psychiatry consult Plan/VTE VTE Prophylaxis Ordered?: Yes VS, I&O, 24H, Fishbone Vital Signs/I&O Vital Signs Date Time Temp Pulse Resp B/P (MAP) Pulse Ox O2 Delivery O2 Flow Rate FiO2 02/24/21 06:48 99.2 02/24/21 06:00 108 19 173/98 (123) 92 Room Air 02/23/21 14:35 2.0 I&O- Last 24 Hours up to 6 AM 02/24/21 06:00 Intake Total 2280 ml Balance 2280 ml Laboratory Data 24H LABS Laboratory Tests 2 02/23/21 14:19: Body Fluid pH 7.675, Body Fluid pH Source PLEURAL, Body Fluid WBC (Auto) 1367H, Body Fluid RBC (Auto) 3, Body Fluid Mononuclear Cells % Auto 8.7H, Fluid Bebeto ymorphonuclear Cell % Auto 91.3H, Body Fluid Glucose Source PLEURAL, Body Fluid Glucose 79, Body Fluid Protein Source PLEURAL, Body Fluid Total Protein 5.6, Body Fluid Albumin Source PLEURAL, Body Fluid Albumin 1.9, Body Fluid LDH Source PLEURAL, Body Fluid Lactate Dehydrogenase 773, Body Fluid Amylase Source PLEURAL, Body Fluid Amylase 33, Pleural Fluid Source PLEURAL, Pleural Fluid Color YELLOW, Pleural Fluid Appearance HAZY 5/26/21 05:30: Immature Granulocyte % (Auto) 1.2, Neutrophils (%) (Auto) 61.6, Lymphocytes (%) (Auto) 24.6, Monocytes (%) (Auto) 10.8H, Eosinophils (%) (Auto) 1.5, Basophils (%) (Auto) 0.3, Neutrophils # (Auto) 6.6, Lymphocytes # (Auto) 2.6, Monocytes # (Auto) 1.2H, Eosinophils # (Auto) 0.2, Basophils # (Auto) 0.0, Nucleated Red Blood Cells % (auto) 0.0, Anion Gap 8, Glomerular Filtration Rate > 60.0, Calcium Level 8.4L CBC/BMP Laboratory Tests 02/24/21 05:30 Microbiology Microbiology 02/24/21 Blood Culture, Received Pending 02/23/21 Acid Fast Stain, Received Pending 02/23/21 Mycobacterial Culture, Received Pending 02/23/21 Fungal Smear, Received Pending 02/23/21 Fungal Culture, Received Pending 02/23/21 Gram Stain - Final, Resulted 02/23/21 Body Fluid Culture, Resulted Pending 02/23/21 Anaerobic Culture, Resulted Pending 02/19/21 Blood Culture - Preliminary, Resulted No Growth after 72 hours. All specime... 02/19/21 Blood Culture - Preliminary, Resulted No Growth after 72 hours. All specime... 02/17/21 Blood Culture - Final, Complete NO GROWTH AFTER 5 DAYS 02/15/21 Respiratory Virus Panel (PCR) ([facility]MUNDO) - Final, Complete 02/15/21 Blood Culture - Final, Complete Streptococcus Pyogenes Grp A 02/15/21 Blood Culture - Final, Complete Streptococcus Pyogenes Grp A TRACE AMBROSE MD February 24, 2021 08:05
--- NOTE | 2021-02-24 11:50 | ECHO ---
DATE OF PROCEDURE: 02/19/2021 Age: 35 Gender: Male REFERRING PROVIDER: Jennifer Cota MD. PATIENT LOCATION: Room 5147. REASON FOR STUDY: Fever. 2D MEASUREMENTS: IVS 0.9 cm LV 5.0 cm LVPW 1.1 cm LA 3.6 cm Aorta 3.4 cm IVC 2.0 cm DOPPLER MEASUREMENT Peak velocity across the aortic valve 1.4 m/s Peak velocity across the LVOT 1.2 m/s Peak gradient across the aortic valve 8 mmHg Mean gradient across the aortic valve 5 mmHg Mitral E 1.0 Mitral A 0.65 with a ratio of 1.5 2D COMMENTS: 1. Normal left ventricular size, wall thickness, and normal global left ventricular systolic function. The estimated left ventricular systolic ejection fraction is 60 to 65%. 2. Normal left atrium. Normal right atrium and right ventricle. 3. The atrial septum appeared to be normal without evidence of defect or shunt. 4. Normal aortic root. 5. No pericardial effusion seen. 6. The aortic valve, mitral valve, and tricuspid valve appeared to be normal. The pulmonic valve as well as the proximal pulmonary artery branches also appeared to be normal. 7. The inferior vena cava was mildly enlarged, central venous pressure might be elevated. DOPPLER: No significant valvular abnormalities detected but trace mitral regurgitation. IMPRESSION: 1. Normal global left ventricular systolic and diastolic function. 2. Trace mitral regurgitation. MTDD
--- NOTE | 2021-02-24 14:08 | REP ---
INDICATION: follow up after thoracocentesis COMPARISON: 02/19/2021 TECHNIQUE: PA and lateral. FINDINGS: Moderate to large left pleural effusion and left lower lobe opacities again noted and possibly slightly increased when compared to prior examination. Right hemithorax is relatively clear/stable. No pneumothorax. Right PICC line again identified with tip in the SVC. Skeletal structures intact. IMPRESSION: Left lower lobe opacities consistent with moderate to large pleural effusion and infiltrate slightly increased from prior examination. <Electronically signed by Prince Do > 02/24/21 [id number]
[2021-02-24 14:39] VITALS: BP 101/81
[2021-02-24] MEDS: cefTRIAXone SOD 2 GM in D5W MINI-BAG PLUS 50 ML IV SCH (17:28)
[2021-02-24] MEDS: QUEtiapine FUMARATE 50MG TAB PO SCH (21:20)
[2021-02-24 22:00] VITALS: BP 178/70
[2021-02-25] MEDS: ACETAMINOPHEN TAB 650MG DOSE (2X325MG) PO PRN ×3 (03:31→13:14)
[2021-02-25] MEDS: SODIUM CHLORIDE 0.9% INJ 10 ML SYR IV SCH ×2 (05:19→17:47)
[2021-02-25] MEDS: KETOROLAC 30 MG/ML 1ML VIAL IV PRN (05:20)
[2021-02-25 05:44] LABS: BASO % 0.3 % (0.0-1.0); EOS # 0.1 10^3/uL (0.0-0.5); HEMATOCRIT 30.8 % (42.0-52.0); HEMOGLOBIN 10.2 g/dl (13.5-17.5); LYMPH # 1.7 10^3/uL (1.5-5.0); LYMPH % 15.2 % (24.0-44.0); MEAN CORPUSCULAR HEMOGLOBIN 30.7 pg (27.0-33.0); MEAN CORPUSCULAR HGB CONC 33.1 g/dl (32.0-36.5); MEAN CORPUSCULAR VOLUME 92.8 fl (80.0-96.0); MONO # 1.5 10^3/uL (0.0-0.8); MONO % 13.8 % (2.0-8.0); NEUTROPHILS # 7.5 10^3/uL (1.5-8.5); NEUTROPHILS % 68.8 % (36.0-66.0); PLATELET COUNT, AUTOMATED 443 10^3/uL (150-450); RED BLOOD COUNT 3.32 10^6/uL (4.30-6.10)
[2021-02-25 05:45] LABS: WHITE BLOOD COUNT 10.9 10^3/uL (4.0-10.0)
[2021-02-25 06:00] VITALS: BP 180/97
[2021-02-25 06:09] LABS: BLOOD UREA NITROGEN 11 MG/DL (7-18); CALCIUM LEVEL 8.6 MG/DL (8.5-10.1); CARBON DIOXIDE LEVEL 30 MEQ/L (21-32); CHLORIDE LEVEL 96 MEQ/L (98-107); CREATININE FOR GFR 0.69 MG/DL (0.70-1.30); GLOMERULAR FILTRATION RATE > 60.0 (>60); GLUCOSE, FASTING 108 MG/DL (70-100); POTASSIUM SERUM 4.6 MEQ/L (3.5-5.1); SODIUM LEVEL 130 MEQ/L (136-145)
[2021-02-25] MEDS: ENOXAPARIN 40MG/0.4ML SYRINGE (J1650 PER 10MG) SC SCH (09:52)
[2021-02-25] MEDS: METHADONE 10 MG TAB (S0109) PO SCH (09:53)
[2021-02-25] MEDS: MAGNESIUM OXIDE 400MG TAB (MAG-OX) PO SCH ×3 (09:53→20:36)
[2021-02-25] MEDS: hydrOXYzine 50 MG TAB PO PRN ×2 (09:53→13:14)
[2021-02-25] MEDS: FOLIC ACID 1 MG TAB PO SCH (09:53)
[2021-02-25] MEDS: QUEtiapine FUMARATE 25 MG TAB PO SCH ×2 (09:53→20:36)
[2021-02-25] MEDS: DOCUSATE SODIUM 100MG CAPSULE PO SCH ×2 (09:54→20:35)
[2021-02-25] MEDS: GABAPENTIN 300 MG CAP PO SCH ×3 (09:54→20:36)
--- NOTE | 2021-02-25 12:48 | IPNPDOC ---
Subjective Date Seen The patient was seen on 02/25/21. Subjective Chief Complaint/HPI Continues to have fever. Had t max of 103 in the past 24 hours. Patient does not complain of feeling febrile or having any chills or having any sweats. Discussed about MANA . He wants to do it next week Monday/ Mon when his mother is in town. He mentions that he will be going to [place] next week as his daughter is sick. Objective Physical Examination General Exam: Positive: Alert, Cooperative, No Acute Distress Eye Exam: Positive: PERRLA, Conjunctiva & lids normal, EOMI; Negative: Sclera icteric Neck Exam: Positive: Supple; Negative: JVD, thyromegaly Chest Exam: Positive: Clear to auscultation, Normal air movement Heart Exam: Positive: Rate Normal, Regular Rhythm, Normal S1, Normal S2; Negative: Murmurs, Rubs Abdomen Exam: Positive: Normal bowel sounds, Soft; Negative: Tenderness, Hepatospenomegaly Extremity Exam: Positive: Swelling (left forearm. ); Negative: Clubbing, Cyanosis, Edema Neuro Exam: Positive: Normal Speech, Strength at 5/5 X4 ext Assessment /Plan Assessment This is a 35 y/o male with a pmh of Bipolar , hep c and polysubstance abuse who presented to the ED four days after beginning to experience redness, swelling and pain of the LUE. Patient stated that he has been using iv essie in that arm and believes that this is the source of his infection. Persistent fever, elevated WBC, elevated CRP cellulitis improved, no septic arthritis of the left shoulder, parapneumonic effusion drained on 02/23/21, echo result still pending. if continues to be febrile will get a MANA to evaluate for infective endocarditis. other possibility is septic thrombophlebitis of the left cephalic vein . But arm looks better so this is less likely. Left upper extremity cellulitis/ Gram-positive bacteremia from IV drug use. Cellulitis has improved. blood cultures streptococcus pyogenes. CT of the extremity showed only cellulitis, no edema no gas no necrosis n abscess On Ceftriaxone daily Left loculated pleural effusion with underlying Pneumonia enlarged paratracheal lymph node, right apical pleural thickening with some gas bubbles, left effusion and left apical pleural thickening. cont ceftriaxone s/p paracentesis on 02/23/21. Looks this is a parapneumonic effusion. cultures are pending. 1400 cc of fluid was removed. Left shoulder pain could not get MRI due to shrapnel in the face, Had CT which is negative for septic arthritis. Left cephalic vein thrombus This is considered a superficial thrombus, and does not require treatment for DVT Recommend NSAIDs and warm compress if he develops superficial thrombophlebitis SOB ? asthma/ COPD reports [facility]. will start albuterol prn H/o IV Opiate use On methadone 60 mg daily, dose was confirmed with [facility] Resumed home dose of methadone. Transaminitis/Hepatitis C Hepatitis panel revealed that he was positive for hepatitis C, apparently the patient was aware of this previously, but he has never sought treatment. Will need to have him follow up with infectious disease upon discharge. Hyponatremia resolved Hypertension will start on amlodipine partly could be due to agitation. Bipolar disorder/PTSD/Depression/ night terrors/anxiety Was in Manic phase initially. used to follow with [facility] but has been off meds for 1 year as he was in long term. Started on gabapentin 300 tid , trazodone 150 mg and started on seroquel. Appreciate psychiatry consult Plan/VTE VTE Prophylaxis Ordered?: Yes VS, I&O, 24H, Fishbone Vital Signs/I&O Vital Signs Date Time Temp Pulse Resp B/P (MAP) Pulse Ox O2 Delivery O2 Flow Rate FiO2 02/25/21 09:54 99 180/97 02/25/21 06:00 97.2 19 94 Room Air 02/23/21 14:35 2.0 I&O- Last 24 Hours up to 6 AM 02/25/21 06:00 Intake Total 1490 ml Output Total 0 ml Balance 1490 ml Laboratory Data 24H LABS Laboratory Tests 2 02/25/21 05:32: Immature Granulocyte % (Auto) 0.9, Neutrophils (%) (Auto) 68.8H, Lymphocytes (%) (Auto) 15.2L, Monocytes (%) (Auto) 13.8H, Eosinophils (%) (Auto) 1.0, Basophils (%) (Auto) 0.3, Neutrophils # (Auto) 7.5, Lymphocytes # (Auto) 1.7, Monocytes # (Auto) 1.5H, Eosinophils # (Auto) 0.1, Basophils # (Auto) 0.0, Nucleated Red Blood Cells % (auto) 0.0, Anion Gap 4L, Glomerular Filtration Rate > 60.0, Calcium Level 8.6 CBC/BMP Laboratory Tests 02/25/21 05:32 Microbiology Microbiology 02/24/21 Blood Culture - Preliminary, Resulted No growth after 24 hours . All specim... 02/23/21 Acid Fast Stain, Received Pending 02/23/21 Mycobacterial Culture, Received Pending 02/23/21 Fungal Smear, Received Pending 02/23/21 Fungal Culture, Received Pending 02/23/21 Gram Stain - Final, Complete 02/23/21 Body Fluid Culture - Final, Complete 02/23/21 Anaerobic Culture - Final, Complete 02/19/21 Blood Culture - Final, Complete NO GROWTH AFTER 5 DAYS 02/19/21 Blood Culture - Final, Complete NO GROWTH AFTER 5 DAYS 02/17/21 Blood Culture - Final, Complete NO GROWTH AFTER 5 DAYS 02/15/21 Respiratory Virus Panel (PCR) ([facility]) - Final, Complete 02/15/21 Blood Culture - Final, Complete Streptococcus Pyogenes Grp A 02/15/21 Blood Culture - Final, Complete Streptococcus Pyogenes Grp A TRACE AMBROSE MD February 25, 2021 11:05
[2021-02-25 12:52] LABS: ERYTHROCYTE SEDIMENTATION RATE 117 mm/hr (0-15)
[2021-02-25] MEDS ORDERED: FUROSEMIDE 40MG/4ML VIAL (J1940) IV ONE (13:00)
[2021-02-25] MEDS: NAPROXEN 250 MG TAB PO SCH ×2 (14:16→20:36)
[2021-02-25 14:40] VITALS: BP 172/111
--- NOTE | 2021-02-25 17:13 | REP ---
INDICATION: fever swelling COMPARISON: Left lower extremity study dated 07/01/2020 TECHNIQUE: Mera scale and color Doppler evaluation bilateral lower extremity using linear high frequency transducer. FINDINGS: Ultrasound examination of the right and left lower extremity deep venous structures from the common femoral vein through the calf stool include the peroneal, anterior and posterior tibial veins demonstrates normal compressibility flow and wave patterns in response to respiration and augmentation. There is no evidence for deep venous thrombosis. 8.9 x 1.8 x 3.0 cm complex collection in the right popliteal fossa most compatible with Diamond's cyst. IMPRESSION: No evidence for deep venous thrombosis. Complex Diamond's cyst in the right popliteal fossa. <Electronically signed by Prince Do > 02/25/21 [id number]
[2021-02-25] MEDS: cefTRIAXone SOD 2 GM in D5W MINI-BAG PLUS 50 ML IV SCH (17:46)
[2021-02-25] MEDS: QUEtiapine FUMARATE 50MG TAB PO SCH (20:36)
[2021-02-25] MEDS: traZODone 50 MG TAB PO PRN (20:47)
[2021-02-25 21:58] VITALS: BP 164/93
[2021-02-26] MEDS: SODIUM CHLORIDE 0.9% INJ 10 ML SYR IV SCH (05:53)
[2021-02-26 06:18] VITALS: BP 133/72
[2021-02-26 06:24] LABS: BASO % 0.4 % (0.0-1.0); EOS # 0.1 10^3/uL (0.0-0.5); EOS % 1.8 % (0.0-3.0); HEMATOCRIT 29.2 % (42.0-52.0); HEMOGLOBIN 9.3 g/dl (13.5-17.5); LYMPH # 1.6 10^3/uL (1.5-5.0); LYMPH % 22.5 % (24.0-44.0); MEAN CORPUSCULAR HEMOGLOBIN 29.9 pg (27.0-33.0); MEAN CORPUSCULAR HGB CONC 31.8 g/dl (32.0-36.5); MEAN CORPUSCULAR VOLUME 93.9 fl (80.0-96.0); MONO # 1.1 10^3/uL (0.0-0.8); MONO % 15.6 % (2.0-8.0); NEUTROPHILS # 4.3 10^3/uL (1.5-8.5); PLATELET COUNT, AUTOMATED 408 10^3/uL (150-450); RED BLOOD COUNT 3.11 10^6/uL (4.30-6.10); WHITE BLOOD COUNT 7.3 10^3/uL (4.0-10.0)
[2021-02-26 06:49] LABS: BLOOD UREA NITROGEN 10 MG/DL (7-18); CALCIUM LEVEL 8.5 MG/DL (8.5-10.1); CARBON DIOXIDE LEVEL 30 MEQ/L (21-32); CHLORIDE LEVEL 103 MEQ/L (98-107); CREATININE FOR GFR 0.54 MG/DL (0.70-1.30); GLOMERULAR FILTRATION RATE > 60.0 (>60); GLUCOSE, FASTING 83 MG/DL (70-100); POTASSIUM SERUM 4.7 MEQ/L (3.5-5.1); SODIUM LEVEL 138 MEQ/L (136-145)
--- NOTE | 2021-02-26 08:35 | IPNPDOC ---
Subjective Date Seen The patient was seen on 02/26/21. Subjective Chief Complaint/HPI Patient sleeping this am. When i woke him up he said he was tired did not sleep at night and wanted to sleep. Said he was feeling ok. Had good urine output with lasix. Fever less. t max of 100.7 Objective Physical Examination General Exam: Positive: Alert, Cooperative, No Acute Distress Eye Exam: Positive: PERRLA, Conjunctiva & lids normal, EOMI; Negative: Sclera icteric Neck Exam: Positive: Supple; Negative: JVD Chest Exam: Positive: Clear to auscultation, Normal air movement Heart Exam: Positive: Rate Normal, Regular Rhythm, Normal S1, Normal S2; Negative: Murmurs, Rubs Abdomen Exam: Positive: Normal bowel sounds, Soft; Negative: Tenderness, Hepatospenomegaly Extremity Exam: Negative: Clubbing, Cyanosis, Edema Assessment /Plan Assessment This is a 35 y/o male with a pmh of Bipolar , hep c and polysubstance abuse who presented to the ED four days after beginning to experience redness, swelling and pain of the LUE. Patient stated that he has been using iv essie in that arm and believes that this is the source of his infection. Persistent fever, elevated WBC, elevated CRP cellulitis improved, no septic arthritis of the left shoulder, parapneumonic effusion drained on 02/23/21, Will need MANA to evaluate for infective endocarditis. Planned for next week. Patient does not want it this week. Wants to wait till monday till his mother is in town. Left upper extremity cellulitis/ Gram-positive bacteremia from IV drug use. Cellulitis has improved. blood cultures streptococcus pyogenes. CT of the extremity showed only cellulitis, no edema no gas no necrosis n abscess On Ceftriaxone daily Left loculated pleural effusion with underlying Pneumonia enlarged paratracheal lymph node, right apical pleural thickening with some gas bubbles, left effusion and left apical pleural thickening. cont ceftriaxone s/p paracentesis on 02/23/21. Looks this is a parapneumonic effusion. cultures are pending. 1400 cc of fluid was removed. Left shoulder pain could not get MRI due to shrapnel in the face, Had CT which is negative for septic arthritis. Left cephalic vein thrombus This is considered a superficial thrombus, and does not require treatment for DVT Recommend NSAIDs and warm compress if he develops superficial thrombophlebitis SOB ? asthma/ COPD reports [facility] albuterol prn H/o IV Opiate use On methadone 60 mg daily, dose was confirmed with [facility] Resumed home dose of methadone. Transaminitis/Hepatitis C Hepatitis panel revealed that he was positive for hepatitis C, apparently the patient was aware of this previously, but he has never sought treatment. Will need to have him follow up with infectious disease upon discharge. Hyponatremia resolved Hypertension will start on amlodipine partly could be due to agitation. Bipolar disorder/PTSD/Depression/ night terrors/anxiety Was in Manic phase initially. used to follow with [facility] but has been off meds for 1 year as he was in senior living. Started on gabapentin 300 tid , trazodone 150 mg and started on seroquel. Appreciate psychiatry consult Plan/VTE VTE Prophylaxis Ordered?: Yes VS, I&O, 24H, Fishbone Vital Signs/I&O Vital Signs Date Time Temp Pulse Resp B/P (MAP) Pulse Ox O2 Delivery O2 Flow Rate FiO2 02/26/21 06:18 98.0 89 18 133/72 (92) 95 Room Air 02/23/21 14:35 2.0 I&O- Last 24 Hours up to 6 AM 02/26/21 06:00 Intake Total 1680 ml Output Total 0 ml Balance 1680 ml Laboratory Data 24H LABS Laboratory Tests 2 02/26/21 06:04: Immature Granulocyte % (Auto) 0.7, Neutrophils (%) (Auto) 59.0, Lymphocytes (%) (Auto) 22.5L, Monocytes (%) (Auto) 15.6H, Eosinophils (%) (Auto) 1.8, Basophils (%) (Auto) 0.4, Neutrophils # (Auto) 4.3, Lymphocytes # (Auto) 1.6, Monocytes # (Auto) 1.1H, Eosinophils # (Auto) 0.1, Basophils # (Auto) 0.0, Nucleated Red Blood Cells % (auto) 0.0, Anion Gap 5L, Glomerular Filtration Rate > 60.0, Calcium Level 8.5 CBC/BMP Laboratory Tests 02/26/21 06:04 Microbiology Microbiology 02/24/21 Blood Culture - Preliminary, Resulted No Growth after 48 hours. All Specime... 02/23/21 Acid Fast Stain, Received Pending 02/23/21 Mycobacterial Culture, Received Pending 02/23/21 Fungal Smear, Received Pending 02/23/21 Fungal Culture, Received Pending 02/23/21 Gram Stain - Final, Complete 02/23/21 Body Fluid Culture - Final, Complete 02/23/21 Anaerobic Culture - Final, Complete 02/19/21 Blood Culture - Final, Complete NO GROWTH AFTER 5 DAYS 02/19/21 Blood Culture - Final, Complete NO GROWTH AFTER 5 DAYS 02/17/21 Blood Culture - Final, Complete NO GROWTH AFTER 5 DAYS TRACE AMBROSE MD February 26, 2021 08:35
[2021-02-26] MEDS ORDERED: FUROSEMIDE 40 MG TAB PO SCH (09:00)
[2021-02-26] MEDS: ACETAMINOPHEN TAB 650MG DOSE (2X325MG) PO PRN ×2 (09:18→12:53)
[2021-02-26] MEDS: ENOXAPARIN 40MG/0.4ML SYRINGE (J1650 PER 10MG) SC SCH (09:18)
[2021-02-26] MEDS: DOCUSATE SODIUM 100MG CAPSULE PO SCH (09:18)
[2021-02-26] MEDS: METHADONE 10 MG TAB (S0109) PO SCH (09:18)
[2021-02-26 09:19] VITALS: BP 133/72
[2021-02-26] MEDS: QUEtiapine FUMARATE 25 MG TAB PO SCH (09:19)
[2021-02-26] MEDS: hydrOXYzine 50 MG TAB PO PRN ×2 (09:19→12:53)
[2021-02-26] MEDS: MAGNESIUM OXIDE 400MG TAB (MAG-OX) PO SCH (09:19)
[2021-02-26] MEDS: FOLIC ACID 1 MG TAB PO SCH (09:19)
[2021-02-26] MEDS: NAPROXEN 250 MG TAB PO SCH (09:20)
[2021-02-26] MEDS: GABAPENTIN 300 MG CAP PO SCH (09:24)
--- NOTE | 2021-02-26 13:58 | IPN ---
PROGRESS NOTE DATE: 02/25/2021 SUBJECTIVE: Eric continues to have fevers up to 103.1. He denies any chills. No cough or shortness of breath. No vomiting or diarrhea. He has lower extremity edema. He states that he is going to [place] next week, no matter what. He is scheduled for an echocardiogram, transesophageal echocardiogram next week. Patient states that is what cardiology wanted, but in fact, patient himself stated he could only have the transesophageal echocardiogram (MANA) when his mother comes from [place]. LABORATORY DATA: White count 10.9, hemoglobin 10.2, hematocrit 30.8, platelets 443, 60% neutrophils, 15% lymphocytes, 14% monocytes. Erythrocyte sedimentation rate (ESR) 117. C-reactive protein (CRP) 14.3. Sodium 130, potassium 4.6, chloride 96, bicarbonate 30, BUN 11, creatinine 0.69, glucose 108, calcium 8.6. Blood culture 02/24/2021: No growth after 24 hours. Pleural fluid 02/23/2021 had no growth final. Acid-fast bacillus (AFB) smear, fungal smear and culture are pending. Ultrasound both lower extremities showed no evidence of deep venous thrombosis (DVT). This was done in workup of his fever. It showed an 8.9 x 3 cm right popliteal cyst. Chest x-ray done on 02/24/2021 showed left lower lobe opacities consistent with moderate to large pleural effusion and infiltrates slightly increased from prior exam. PHYSICAL EXAMINATION: Temperature 100.7, pulse 98, respirations 18, blood pressure 170/111, oxygen saturation 99% on room air. HEART: Normal S1, S2. Slightly tachycardic. Faint systolic murmur heard at the left upper sternal border. LUNGS: Clear. No wheezes, rales or rhonchi. ABDOMEN: Soft, nontender. No hepatosplenomegaly. EXTREMITIES: 1+ pitting edema bilaterally. No calf tenderness. Left arm erythema and tenderness has resolved. Shoulder with good range of motion. There are some indurated pains along his arm that are not erythematous, but hard, scarred, but nontender. Echocardiogram done on 02/19/2021 showed no significant valvular abnormalities, normal ventricular systolic and diastolic function, trace mitral regurgitation. IMPRESSION: 1. Group A Streptococcus infection with bacteremia from left arm cellulitis with persistent fever. Concern for endocarditis. Patient is scheduled for transesophageal echocardiogram, although I would suggest doing this much sooner. 2. Pleural effusion status post thoracentesis at 1400 mL of pleural fluid with 91% polymorphonuclear leukocytes (PMNs) and a pH of 7.65 with negative gram stain and culture. These are suggestive of a peripneumonic pneumonia. 3. Persistent fever is concerning. PLAN Transesophageal echocardiogram will be obtained. Continue intravenous (IV) antibiotic. He is currently day #11 of appropriate antibiotic, currently on 2 grams IV Rocephin. MTDD
[2021-02-26 14:00] VITALS: BP 134/72
[2021-02-26] MEDS ORDERED: NON-FORMULARY 1 EA EA IV ONE (15:45)
[2021-02-26] MEDS ORDERED: FOLI1TAB11 PO (15:55)
[2021-02-26] MEDS ORDERED: QUET25TA3 PO (15:55)
[2021-02-26] MEDS ORDERED: NAPR-849 PO (15:55)
[2021-02-26] MEDS ORDERED: VENTAER INH (15:55)
[2021-02-26] MEDS ORDERED: GABA-282 PO (15:55)
[2021-02-26] MEDS ORDERED: AMLO1TAB25 PO (15:55)
--- NOTE | 2021-02-26 17:03 | IPN ---
PROGRESS NOTE DATE: 02/26/2021 SUBJECTIVE: Eric is doing well. He states he has to leave today to go to [place]. He will be taking the 2:00 a.m. bus and will arrive there in a couple days. He has had no fever in the past 24 hours. He has no cough or shortness of breath. No complaints. No nausea, vomiting or diarrhea. His shoulder has markedly improved. He has mid thoracic back pain which is worse with position. He thinks he has a muscular pain. It started about a couple of days ago. LABORATORY DATA: White count 7.3, hemoglobin 9.3, hematocrit 29.2, platelets 408,000, 59% neutrophils, 22% lymphocytes, 15% monocytes. ESR 117. Sodium 138, potassium 4.7, chloride 103, bicarb 30, BUN 10, creatinine 0.54, glucose 83, calcium 8.5. CRP 13.1. Vancomycin trough on 02/17/2021 was 12. Hepatitis C RNA positive. MEDICATIONS: I.V. Ceftriaxone 2 grams daily. PHYSICAL EXAMINATION: VITAL SIGNS: Temperature 97.6, pulse 87, respirations 19, blood pressure 135/72, O2 sat 95% on room air. HEART: Normal S1, S2. No murmurs appreciated. LUNGS: Diminished breath sounds at the left base half way up. Right lung is clear. ABDOMEN: Soft, nontender. No hepatosplenomegaly. EXTREMITIES: Trace edema bilaterally. Shoulder normal range of motion. BACK: Mild paraspinal tenderness along the thoracic spine around T5 to T10. No bruising. No point tenderness. IMPRESSION: 1. Group A Streptococcus pyogenes invasive disease from left upper extremity cellulitis: On I.V. Rocephin. Persistent fever in spite of appropriate antibiotics for the past 10 days. Concerning for endocarditis. Patient was supposed to have a MANA scheduled, but wants to leave to [place]. 2. Left parapneumonic effusion; status post thoracentesis: 1400 cc of pleural fluid drained, culture was negative. PH 7.6. 3. History of Hepatitis C: Will need treatment at a later date; history of heroin addiction. PLAN: 1. Case has been discussed with pharmacy to treat him with a dose of I.V. [place] 1.5 grams infusion before he leaves to [place] as his risk of relapse and re-infection is very high. His risk of noncompliance; not taking his antibiotics upon discharge is very likely. I am concerned about his long ride to [place] and possible complication. He still has a persistent fusion on the left side, but he is not hypoxic and has been afebrile for 24 hours. Case has been discussed with Dr. Kowalski and his nurse. Patient understands that this is not ideal treatment, but he is adamant on leaving.
--- NOTE | 2021-03-01 12:07 | DS.PDOC ---
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 Left upper extremity cellulitis Left pneumonia with parapneumonic effusion left cephalic vein thrombosis Hepatitic C Hypertension Polysubstance abuse intravenous H/o IV opiate use on methadone. Bipolar disorder with chloe/PTSD/ night terrors Asthma/chronic bronchitis Hyponatremia. COMPLICATIONS/CHIEF COMPLAINT: Cellulitis, Upper Arm. HOSPITAL COURSE: This is a 35 y/o male with a pmh of Bipolar , hep c and polysubstance abuse who presented to the ED four days after beginning to experience redness, swelling and pain of the LUE. Patient stated that he has been using iv essie in that arm and believes that this is the source of his infection. Patient was admitted for left upper extremity cellulitis. His blood cultures grew Streptococcus pyogenes. He was also noted to have left pleural effusion. Thoracocentesis removed 1400 cc of fluid which was parapneumonic. He continued to have fevers and elevated WBCs after 10 days of appropriate antibiotics so Infectious disease felt that he needed a MANA. He was diagnosed with Streptococcus pyogenes invasive disease. Patient wanted to delay MANA till 03/02/21. However on 02/26/21 he got news that a family member was very sick in [place] and he wanted to leave immediately for [place]. He was adamant about leaving and if not discharged he was going to walk out. We explained that this was not an ideal discharge situation however he still wanted to leave. We arranged for a Dose of Dalvance prior to going home as he is very unreliable and would not be complaint with oral antibiotics. Left upper extremity cellulitis/ Gram-positive bacteremia from IV drug use. Cellulitis has improved. blood cultures streptococcus pyogenes. CT of the extremity showed only cellulitis, no edema no gas no necrosis or abscess received 10 days of Ceftriaxone and 1 dose of Dalvance Left pneumonia with Parapneumonic effusion enlarged paratracheal lymph node, right apical pleural thickening with some gas bubbles, left effusion and left apical pleural thickening. cont ceftriaxone s/p thoracocentesis on 02/23/21. Looks this is a parapneumonic effusion. cultures are pending. 1400 cc of fluid was removed. Follow up CXR on 02/24 still showed moderate to large persistent left pleural effusion. Was given IV lasix. Areobic and anaerobic Cultures from pleural fluid was negative Cytology negative for malignant cells. Persistent fever, elevated WBC, elevated CRP cellulitis improved, no septic arthritis of the left shoulder, parapneumonic effusion drained on 02/23/21, Will need MANA to evaluate for infective endocarditis. Planned for next week. Patient does not want it this week. Wants to wait till Friday 03/02 till his mother is in town. Left shoulder pain could not get MRI due to shrapnel in the face, Had CT which is negative for septic arthritis. Left cephalic vein thrombus This is considered a superficial thrombus, and does not require treatment for DVT Recommend NSAIDs and warm compress if he develops superficial thrombophlebitis SOB ? asthma/ COPD reports [facility] albuterol prn H/o IV Opiate use On methadone 60 mg daily, dose was confirmed with [facility] Resumed home dose of methadone. Transaminitis/Hepatitis C Hepatitis panel revealed that he was positive for hepatitis C, apparently the patient was aware of this previously, but he has never sought treatment. Will need to have him follow up with infectious disease upon discharge. Hyponatremia resolved Hypertension started on amlodipine partly could be due to agitation. Bipolar disorder/PTSD/Depression/ night terrors/anxiety Was in Manic phase initially. used to follow with [place] [facility] but has been off meds for 1 year as he was in senior living. Started on gabapentin 300 tid , trazodone 150 mg and started on seroquel. Appreciate psychiatry consult DISCHARGE MEDICATIONS: Please see below. ALLERGIES: Please see below. PHYSICAL EXAMINATION ON DISCHARGE: VITAL SIGNS: Please see below. General Exam: Positive: Alert, Cooperative, No Acute Distress Eye Exam: Positive: PERRLA, Conjunctiva & lids normal, EOMI; Negative: Sclera icteric Neck Exam: Positive: Supple; Negative: JVD Chest Exam: Positive: Clear to auscultation, Normal air movement Heart Exam: Positive: Rate Normal, Regular Rhythm, Normal S1, Normal S2; Negative: Murmurs, Rubs Abdomen Exam: Positive: Normal bowel sounds, Soft; Negative: Tenderness, Hepatosplenomegaly Extremity Exam: Negative: Clubbing, Cyanosis, Edema LABORATORY DATA: Please see below. IMAGING: Left upper extremity soft tissue US and doppler 02/15/21 FINDINGS: Soft tissues: Scanning in an area of redness demonstrates no abscess or fluid collection. Vasculature: Incidental note is thrombus in the left cephalic vein above the mid forearm. IMPRESSION: 1. Scanning in the area of redness demonstrates no abscess or fluid collection. 2. Incidental note is thrombus in the left cephalic vein above the mid forearm. Liver US: 02/16/21 Liver: The liver is enlarged measuring up to 18.9 centimetres. There is no focal hepatic mass. Gallbladder: Gallbladder sludge is seen. There is no gallbladder wall thickening or pericholecystic fluid. Common bile duct: The CBD is normal in caliber measuring 5-6 mm in diameter. Pancreas: The pancreatic head and body are unremarkable. The tail of the pancreas is obscured by bowel gas. Right kidney: The right kidney measures 13.0 x 7.4 x 5.9 cm with a cortical thickness of 1.7 centimetres. There is no right renal mass, stone, cyst or hydronephrosis. IMPRESSION: 1. Gallbladder sludge with no sonographic evidence of cholecystitis. 2. Mild hepatomegaly. CT chest: 02/18/21 IMPRESSION: Small left pleural effusion with areas of visceral and parietal pleural thicke dharmesh. There are multifocal areas of pleural thickening in the right upper chest as well anterolaterally question previous instrumentation. Mild left axillary lymphadenopathy. One enlarged mediastinal lymph node. New splenomegaly. Question lymphoproliferative disease. CT left Upper extremity: 02/18/21 IMPRESSION: Diffuse soft tissue edema and suspected cellulitis. No definite focal fluid collection in the soft tissues. No soft tissue air seen. CT shoulder: 02/22/21 Bones/joints: Os acromiale. No CT evidence of acute fracture or dislocation. Alignment anatomic. Joint spaces preserved. No erosive or destructive changes. No lytic or blastic lesion. No significant effusion. Soft tissues: Grossly unremarkable. Lymph nodes: Small left axillary lymph nodes, likely reactive. Pleural space: Large, loculated left pleural effusion with associated compressive atelectatic change. IMPRESSION: 1. Limited noncontrast examination. 2. No evidence of septic arthritis. 3. Additional findings, as above. Doppler lower extremity 02/25/21 Ultrasound examination of the right and left lower extremity deep venous structures from the common femoral vein through the calf stool include the peroneal, anterior and posterior tibial veins demonstrates normal compressibility flow and wave patterns in response to respiration and augmentation. There is no evidence for deep venous thrombosis. 8.9 x 1.8 x 3.0 cm complex collection in the right popliteal fossa most compatible with Diamond's cyst. IMPRESSION: No evidence for deep venous thrombosis. Complex Diamond's cyst in the right popliteal fossa. CXR: 02/24/21 Moderate to large left pleural effusion and left lower lobe opacities again n oted and possibly slightly increased when compared to prior examination. Right hemithorax is relatively clear/stable. No pneumothorax. Right PICC line again identified with tip in the SVC. Skeletal structures intact. IMPRESSION: Left lower lobe opacities consistent with moderate to large pleural effusion and infiltrate slightly increased from prior examination. ECHO: 02/19/21 2D MEASUREMENTS: IVS 0.9 cm LV 5.0 cm LVPW 1.1 cm LA 3.6 cm Aorta 3.4 cm IVC 2.0 cm DOPPLER MEASUREMENT Peak velocity across the aortic valve 1.4 m/s Peak velocity across the LVOT 1.2 m/s Peak gradient across the aortic valve 8 mmHg Mean gradient across the aortic valve 5 mmHg Mitral E 1.0 Mitral A 0.65 with a ratio of 1.5 2D COMMENTS: 1. Normal left ventricular size, wall thickness, and normal global left ventricular systolic function. The estimated left ventricular systolic ejection fraction is 60 to 65%. 2. Normal left atrium. Normal right atrium and right ventricle. 3. The atrial septum appeared to be normal without evidence of defect or shunt. 4. Normal aortic root. 5. No pericardial effusion seen. 6. The aortic valve, mitral valve, and tricuspid valve appeared to be normal. The pulmonic valve as well as the proximal pulmonary artery branches also appeared to be normal. 7. The inferior vena cava was mildly enlarged, central venous pressure might beelevated. DOPPLER: No significant valvular abnormalities detected but trace mitral regurgitation. IMPRESSION: 1. Normal global left ventricular systolic and diastolic function. 2. Trace mitral regurgitation. ACTIVITY: [As tolerated]. DIET: As tolerated DISPOSITION: 01 Home, Self-Care. DISCHARGE INSTRUCTIONS: Follow up with Dr Colorado in 2 weeks Follow up the AFB and fungal cultures in the pleural fluid. DISCHARGE CONDITION: [Stable]. TIME SPENT ON DISCHARGE: 35 minutes. Vital Signs/I&Os Vital Signs Date Time Temp Pulse Resp B/P (MAP) Pulse Ox O2 Delivery O2 Flow Rate FiO2 02/26/21 14:00 97.6 87 19 134/72 (92) 95 Room Air 02/23/21 14:35 2.0 Microbiology Microbiology 02/24/21 Blood Culture - Final, Complete NO GROWTH AFTER 5 DAYS 02/23/21 Acid Fast Stain, Received Pending 02/23/21 Mycobacterial Culture, Received Pending 02/23/21 Fungal Smear, Received Pending 02/23/21 Fungal Culture, Received Pending 02/23/21 Gram Stain - Final, Complete 02/23/21 Body Fluid Culture - Final, Complete 02/23/21 Anaerobic Culture - Final, Complete 02/19/21 Blood Culture - Final, Complete NO GROWTH AFTER 5 DAYS 02/19/21 Blood Culture - Final, Complete NO GROWTH AFTER 5 DAYS Discharge Medications Scheduled Amlodipine Besylate (Amlodipine Besylate) 10 Mg Tablet, 10 MG PO DAILY Folic Acid (Folic Acid) 1 Mg Tablet, 1 MG PO DAILY Gabapentin (Gabapentin) 300 Mg Capsule, 300 MG PO TID Methadone HCl (Methadone HCl) 10 Mg/1 Ml Oral.conc, 60 MG PO QAM, (Reported) Naproxen (Naproxen) 250 Mg Tablet, 500 MG PO BID Quetiapine Fumarate (Quetiapine Fumarate) 25 Mg Tablet, 25 MG PO ASDIRECTED 1 in the morning and 2 at bed time Scheduled PRN Albuterol Sulfate (Ventolin Hfa) 18 Gm Hfa.aer.ad, 2 PUFF INH Q4HP PRN for SHORTNESS OF BREATH Allergies Coded Allergies: No Known Allergies (Unverified , 07/01/20) TRACE AMBROSE MD March 01, 2021 12:07
== END 2021-02-26 17:12 | disposition home or self-care (01) | DRG 720 ==
LOC: M ED 01:21 → M ED INP 04:46 → ENRESERV 05:22 → M PCU 06:01 → M MS5PR 02-17 21:20
PROVIDERS: ADMIT Internal Medicine; ATTEND Internal Medicine Nephrology
PROC: 02HV33Z Insertion of Infusion Device into Superior Vena Cava, Percutaneous Approach (ICD-10-PCS; principal; 2021-02-16 14:36)
PROC: 02HV33Z Insertion of Infusion Device into Superior Vena Cava, Percutaneous Approach (ICD-10-PCS; 2021-02-18)
PROC: 0W9B3ZZ Drainage of Left Pleural Cavity, Percutaneous Approach (ICD-10-PCS; 2021-02-23)
DX: A40.0 Sepsis due to streptococcus, group A (principal); J90 Pleural effusion, not elsewhere classified; J18.9 Pneumonia, unspecified organism; F16.20 Hallucinogen dependence, uncomplicated; E87.1 Hypo-osmolality and hyponatremia; F11.20 Opioid dependence, uncomplicated; I82.612 Acute embolism and thrombosis of superficial veins of left upper extremity; I16.0 Hypertensive urgency; L03.114 Cellulitis of left upper limb; B19.20 Unspecified viral hepatitis C without hepatic coma; R74.01 Elevation of levels of liver transaminase levels; F17.200 Nicotine dependence, unspecified, uncomplicated; F31.9 Bipolar disorder, unspecified; J45.909 Unspecified asthma, uncomplicated; I10 Essential (primary) hypertension; M25.511 Pain in right shoulder; Z91.82 Personal history of military deployment

== ENCOUNTER 2021-02-26 18:15 | Outpatient (CLI) | payer OTHER ==
[~2021-02-26 18:15] MED LIST changes: +AMLO1TAB25 PO; +DALBAVANCIN 1,500 MG in D5W 250 ML IV ONE; +FOLI1TAB11 PO; +METH10CO PO; +METH10TA2 PO; +NAPR-849 PO; +QUET25TA3 PO; +VENTAER INH
== END 2021-02-26 19:15 | disposition home or self-care (01) ==
LOC: M OPCLI5PR 18:15 → M MS5PR 18:15 → M OPCLI5PR 19:15
PROVIDERS: ATTEND Internal Medicine Nephrology
DX: L03.114 Cellulitis of left upper limb (principal)
CPT/HCPCS: 96365; J0875

== ENCOUNTER 2021-10-20 19:38 | Emergency (ER) | payer OTHER ==
[~2021-10-20] VITALS: Ht 175.3 cm; Wt 104.5 kg
[~2021-10-20 19:38] MED LIST changes: -DALBAVANCIN 1,500 MG in D5W 250 ML IV ONE; +FLUO-96 PO; -FLUO20CA20 PO; +METH-1177 PO; -METH10TA2 PO; +QUET1TAB17 PO; -QUET25TA3 PO
[2021-10-20 19:48] VITALS: BP 145/72
== END 2021-10-20 20:20 | disposition left against medical advice (07) ==
LOC: M ED 19:38
DX: F19.10 Other psychoactive substance abuse, uncomplicated (principal); F43.10 Post-traumatic stress disorder, unspecified; F31.9 Bipolar disorder, unspecified; Z53.20 Procedure and treatment not carried out because of patient's decision for unspecified reasons

== ENCOUNTER 2021-12-15 18:41 | Emergency (ER) | payer OTHER ==
[2021-12-15 19:27] VITALS: BP 148/85
== END 2021-12-15 20:46 | disposition left against medical advice (07) ==
LOC: M ED 18:41
DX: R41.82 Altered mental status, unspecified (principal); Z53.20 Procedure and treatment not carried out because of patient's decision for unspecified reasons

== ENCOUNTER 2022-03-16 11:10 | Emergency (ER) | payer OTHER ==
[2022-03-16] MEDS ORDERED: NS 1,000 ML IV ONE (11:30)
[2022-03-16 12:27] LABS: BASO % 0.2 % (0.0-1.0); EOS # 0.1 10^3/uL (0.0-0.5); EOS % 1.3 % (0.0-3.0); HEMATOCRIT 43.5 % (42.0-52.0); HEMOGLOBIN 14.4 g/dl (13.5-17.5); LYMPH # 2.2 10^3/uL (1.5-5.0); LYMPH % 26.2 % (24.0-44.0); MEAN CORPUSCULAR HEMOGLOBIN 30.4 pg (27.0-33.0); MEAN CORPUSCULAR HGB CONC 33.1 g/dl (32.0-36.5); MONO # 0.9 10^3/uL (0.0-0.8); NEUTROPHILS # 5.1 10^3/uL (1.5-8.5); NEUTROPHILS % 61.1 % (36.0-66.0); PLATELET COUNT, AUTOMATED 214 10^3/uL (150-450); RED BLOOD COUNT 4.73 10^6/uL (4.30-6.10); WHITE BLOOD COUNT 8.4 10^3/uL (4.0-10.0)
[2022-03-16 12:42] LABS: ACETAMINOPHEN LEVEL < 2.0 UG/ML (10.0-30.0); ALBUMIN 4.1 GM/DL (3.2-5.2); ALT/SGPT 45 U/L (12-78); BILIRUBIN,DIRECT < 0.1 MG/DL (0.0-0.2); BILIRUBIN,TOTAL 0.7 MG/DL (0.2-1.0); BLOOD UREA NITROGEN 9 MG/DL (7-18); CALCIUM LEVEL 10.3 MG/DL (8.5-10.1); CARBON DIOXIDE LEVEL 21 MEQ/L (21-32); CHLORIDE LEVEL 109 MEQ/L (98-107); CREATININE FOR GFR 1.02 MG/DL (0.70-1.30); ETHYL ALCOHOL (ETHANOL) < 0.003 % (0.000-0.010); GLOMERULAR FILTRATION RATE > 60.0 (>60); GLUCOSE, FASTING 139 MG/DL (70-100); POTASSIUM SERUM 4.9 MEQ/L (3.5-5.1); SALICYLATE LEVEL 2.9 MG/DL (5.0-30.0); SODIUM LEVEL 140 MEQ/L (136-145); TOTAL PROTEIN 7.6 GM/DL (6.4-8.2)
[2022-03-16 14:07] VITALS: BP 156/74
== END 2022-03-16 14:01 | disposition left against medical advice (07) ==
LOC: M ED 11:10
DX: F15.10 Other stimulant abuse, uncomplicated (principal); F31.9 Bipolar disorder, unspecified